=== PATIENT | female | born 1960 | race Caucasian/White ===

== ENCOUNTER → 2017-08-14 13:08 | Outpatient (REF) | payer MEDICARE, MEDICAID, SELFPAY ==
[2017-08-14 18:02] LABS: Amphetamine/Metha Screen,Urine Negative ng/mL (<1000); Barbiturates Screen,Urine Negative ng/mL (<200); Benzodiazepines Screen,Urine Negative ng/mL (200); Cannabinoid Screen,Urine Negative ng/mL (<50); Cocaine Screen,Urine Negative ng/g (<300); Methadone Screen,Urine Negative ng/mL (<300); Opiate Screen,Urine Positive ng/mL (<300); Phencyclidine Screen,Urine Negative ng/mL (<25)
== END ==
LOC: LAB 13:08
PROVIDERS: Visit Provider Emergency Medicine
DX: Z79.899 Other long term (current) drug therapy (principal)
CPT/HCPCS: 80305

== ENCOUNTER → 2017-09-14 10:09 | Outpatient (REF) | payer MEDICARE, MEDICAID, SELFPAY ==
[2017-09-14 14:01] LABS: Amphetamine/Metha Screen,Urine Negative ng/mL (<1000); Barbiturates Screen,Urine Negative ng/mL (<200); Benzodiazepines Screen,Urine Negative ng/mL (200); Cannabinoid Screen,Urine Negative ng/mL (<50); Cocaine Screen,Urine Negative ng/g (<300); Methadone Screen,Urine Negative ng/mL (<300); Opiate Screen,Urine Positive ng/mL (<300); Phencyclidine Screen,Urine Negative ng/mL (<25)
== END ==
LOC: LAB 10:09
PROVIDERS: Visit Provider Emergency Medicine
DX: Z79.899 Other long term (current) drug therapy (principal)
CPT/HCPCS: 80305

== ENCOUNTER → 2017-10-12 11:35 | Outpatient (REF) | payer MEDICARE, MEDICAID, SELFPAY ==
[2017-10-12 14:11] LABS: Amphetamine/Metha Screen,Urine Negative ng/mL (<1000); Barbiturates Screen,Urine Negative ng/mL (<200); Benzodiazepines Screen,Urine Negative ng/mL (200); Cannabinoid Screen,Urine Negative ng/mL (<50); Cocaine Screen,Urine Negative ng/g (<300); Methadone Screen,Urine Negative ng/mL (<300); Opiate Screen,Urine Positive ng/mL (<300); Phencyclidine Screen,Urine Negative ng/mL (<25)
== END ==
LOC: LAB 11:35
PROVIDERS: Visit Provider Emergency Medicine
DX: Z79.899 Other long term (current) drug therapy (principal)
CPT/HCPCS: 80305

== ENCOUNTER → 2017-11-10 10:48 | Outpatient (REF) | payer MEDICARE, MEDICAID, SELFPAY ==
[2017-11-10 13:55] LABS: Amphetamine/Metha Screen,Urine Negative ng/mL (<1000); Barbiturates Screen,Urine Negative ng/mL (<200); Benzodiazepines Screen,Urine Negative ng/mL (200); Cannabinoid Screen,Urine Negative ng/mL (<50); Cocaine Screen,Urine Negative ng/g (<300); Methadone Screen,Urine Negative ng/mL (<300); Opiate Screen,Urine Positive ng/mL (<300); Phencyclidine Screen,Urine Negative ng/mL (<25)
== END ==
LOC: LAB 10:48
PROVIDERS: Visit Provider Emergency Medicine
DX: Z79.899 Other long term (current) drug therapy (principal)
CPT/HCPCS: 80305

== ENCOUNTER → 2017-12-09 10:55 | Outpatient (REF) | payer MEDICARE, MEDICAID, SELFPAY ==
[2017-12-09 14:04] LABS: Amphetamine/Metha Screen,Urine Negative ng/mL (<1000); Barbiturates Screen,Urine Negative ng/mL (<200); Benzodiazepines Screen,Urine Negative ng/mL (200); Cannabinoid Screen,Urine Negative ng/mL (<50); Cocaine Screen,Urine Negative ng/g (<300); Methadone Screen,Urine Negative ng/mL (<300); Opiate Screen,Urine Positive ng/mL (<300); Phencyclidine Screen,Urine Negative ng/mL (<25)
== END ==
LOC: LAB 10:55
PROVIDERS: Visit Provider Emergency Medicine
DX: Z79.899 Other long term (current) drug therapy (principal)
CPT/HCPCS: 80305

== ENCOUNTER → 2018-01-06 13:20 | Outpatient (REF) | payer MEDICARE, MEDICAID, SELFPAY ==
[2018-01-06 19:31] LABS: Amphetamine/Metha Screen,Urine Negative ng/mL (<1000); Barbiturates Screen,Urine Negative ng/mL (<200); Benzodiazepines Screen,Urine Negative ng/mL (200); Cannabinoid Screen,Urine Negative ng/mL (<50); Cocaine Screen,Urine Negative ng/g (<300); Methadone Screen,Urine Negative ng/mL (<300); Opiate Screen,Urine Positive ng/mL (<300); Phencyclidine Screen,Urine Negative ng/mL (<25)
== END ==
LOC: LAB 13:20
PROVIDERS: Visit Provider Emergency Medicine
DX: M54.5 Low back pain (principal); Z79.899 Other long term (current) drug therapy
CPT/HCPCS: 80305

== ENCOUNTER → 2018-02-08 11:07 | Outpatient (REF) | payer MEDICARE, MEDICAID, SELFPAY ==
[2018-02-08 14:01] LABS: Amphetamine/Metha Screen,Urine Negative ng/mL (<1000); Barbiturates Screen,Urine Negative ng/mL (<200); Benzodiazepines Screen,Urine Negative ng/mL (<200); Cannabinoid Screen,Urine Negative ng/mL (<50); Cocaine Screen,Urine Negative ng/mL (<300); Methadone Screen,Urine Negative ng/mL (<300); Opiate Screen,Urine Positive ng/mL (<300); Phencyclidine Screen,Urine Negative ng/mL (<25)
== END ==
LOC: LAB 11:07
PROVIDERS: Visit Provider Emergency Medicine
DX: M54.5 Low back pain (principal); N39.0 Urinary tract infection, site not specified
CPT/HCPCS: 80305; 87086; 87088; 87186

== ENCOUNTER → 2018-03-10 09:37 | Outpatient (REF) | payer MEDICARE, SELFPAY ==
[2018-03-10 14:09] LABS: Amphetamine/Metha Screen,Urine Negative ng/mL (<1000); Barbiturates Screen,Urine Negative ng/mL (<200); Benzodiazepines Screen,Urine Negative ng/mL (<200); Cannabinoid Screen,Urine Negative ng/mL (<50); Cocaine Screen,Urine Negative ng/mL (<300); Methadone Screen,Urine Negative ng/mL (<300); Opiate Screen,Urine Positive ng/mL (<300); Phencyclidine Screen,Urine Negative ng/mL (<25)
== END ==
LOC: LAB 09:37
PROVIDERS: Visit Provider Emergency Medicine
DX: T50.901A Poisoning by unspecified drugs, medicaments and biological substances, accidental (unintentional), initial encounter (principal)
CPT/HCPCS: 80305

== ENCOUNTER → 2018-05-10 16:00 | Outpatient (REF) | payer MEDICARE, SELFPAY ==
[2018-05-11 12:50] LABS: Amphetamine/Metha Screen,Urine Negative ng/mL (<1000); Barbiturates Screen,Urine Negative ng/mL (<200); Benzodiazepines Screen,Urine Negative ng/mL (<200); Cannabinoid Screen,Urine Negative ng/mL (<50); Cocaine Screen,Urine Negative ng/mL (<300); Methadone Screen,Urine Negative ng/mL (<300); Opiate Screen,Urine Positive ng/mL (<300); Phencyclidine Screen,Urine Negative ng/mL (<25)
== END ==
LOC: LAB 16:00
PROVIDERS: PCP Emergency Medicine; Visit Provider Emergency Medicine
DX: Z79.899 Other long term (current) drug therapy (principal)
CPT/HCPCS: 80305

== ENCOUNTER → 2018-06-10 13:25 | Outpatient (CLI) | payer MEDICARE, SELFPAY ==
[2018-06-10 17:07] LABS: Amphetamine/Metha Screen,Urine Negative ng/mL (<1000); Barbiturates Screen,Urine Negative ng/mL (<200); Benzodiazepines Screen,Urine Negative ng/mL (<200); Cannabinoid Screen,Urine Negative ng/mL (<50); Cocaine Screen,Urine Negative ng/mL (<300); Methadone Screen,Urine Negative ng/mL (<300); Opiate Screen,Urine Positive ng/mL (<300); Phencyclidine Screen,Urine Negative ng/mL (<25)
== END ==
PROVIDERS: PCP Emergency Medicine; Visit Provider Emergency Medicine
DX: Z79.899 Other long term (current) drug therapy (principal)
CPT/HCPCS: 80305

== ENCOUNTER → 2018-07-07 15:30 | Outpatient (CLI) | payer MEDICARE, SELFPAY ==
[2018-07-08 14:56] LABS: Amphetamine/Metha Screen,Urine Negative ng/mL (<1000); Barbiturates Screen,Urine Negative ng/mL (<200); Benzodiazepines Screen,Urine Negative ng/mL (<200); Cannabinoid Screen,Urine Negative ng/mL (<50); Cocaine Screen,Urine Negative ng/mL (<300); Methadone Screen,Urine Negative ng/mL (<300); Opiate Screen,Urine Positive ng/mL (<300); Phencyclidine Screen,Urine Negative ng/mL (<25)
== END ==
PROVIDERS: Visit Provider Emergency Medicine
DX: M54.5 Low back pain (principal); Z79.891 Long term (current) use of opiate analgesic
CPT/HCPCS: 80305

== ENCOUNTER → 2018-10-04 17:20 | Outpatient (CLI) | payer MEDICARE, SELFPAY ==
[2018-10-04 19:02] LABS: Amphetamine/Metha Screen,Urine Negative ng/mL (<1000); Barbiturates Screen,Urine Negative ng/mL (<200); Benzodiazepines Screen,Urine Negative ng/mL (<200); Cannabinoid Screen,Urine Negative ng/mL (<50); Cocaine Screen,Urine Negative ng/mL (<300); Methadone Screen,Urine Negative ng/mL (<300); Opiate Screen,Urine Positive ng/mL (<300); Phencyclidine Screen,Urine Negative ng/mL (<25)
[2018-10-11 17:11] LABS: Alprazolam Negative (Cutoff=100); Benzodiazepines Positive ng/mL (Cutoff=100); Clonazepam Positive (.); Codeine Negative (Cutoff=100); Flurazepam Negative (Cutoff=100); Hydrocodone Positive (.); Hydromorphone Positive (.); Lorazepam Negative (Cutoff=100); Midazolam Negative (Cutoff=100); Morphine Positive (.); Temazepam Negative (Cutoff=100); Triazolam Negative (Cutoff=100)
[2018-10-12 03:10] LABS: Clonazepam Confirm 356 ng/mL (Cutoff=100); Hydrocodone Confirm 1485 ng/mL (Cutoff=100); Hydromorphone Confirm 361 ng/mL (Cutoff=100); Morphine Confirm >3000 ng/mL (Cutoff=100); Opiates Positive (.)
== END ==
PROVIDERS: Visit Provider Emergency Medicine
DX: F41.9 Anxiety disorder, unspecified (principal); T50.901A Poisoning by unspecified drugs, medicaments and biological substances, accidental (unintentional), initial encounter; Z79.899 Other long term (current) drug therapy
CPT/HCPCS: 80305; 80346; 80361; G0480

== ENCOUNTER → 2018-10-06 18:56 | Outpatient (CLI) | payer MEDICARE, SELFPAY ==
[2018-10-06 20:33] LABS: Amphetamine/Metha Screen,Urine Negative ng/mL (<1000); Barbiturates Screen,Urine Negative ng/mL (<200); Benzodiazepines Screen,Urine Negative ng/mL (<200); Cannabinoid Screen,Urine Negative ng/mL (<50); Cocaine Screen,Urine Negative ng/mL (<300); Methadone Screen,Urine Negative ng/mL (<300); Opiate Screen,Urine Positive ng/mL (<300); Phencyclidine Screen,Urine Negative ng/mL (<25)
== END ==
PROVIDERS: Visit Provider Emergency Medicine
DX: Z79.899 Other long term (current) drug therapy (principal)
CPT/HCPCS: 80305

== ENCOUNTER → 2018-10-11 13:30 | Outpatient (CLI) | payer MEDICARE, MEDICAID, SELFPAY ==
--- NOTE | 2018-10-11 13:49 | CT_ITS ---
CT chest wo con HISTORY: Hemoptysis, smoker ITS.REASON: hemoptisis/tobacco ORDERING PHYSICIAN: Garrison Morales MD PATIENT AGE: 58 years COMPARISON: 06/14/2018 Technique: Axial images obtained following the administration of 75 mL of Optiray 350 . Sagittal, and coronal reformatted images are also generated and reviewed. All CT scans at the facility use one or more dose reduction, viz: automated exposure control, ma/kV adjustment per patient size (including targeted exams where dose is matched to indication, i.e. head), or iterative reconstruction technique. FINDINGS: There has been prior CABG. There is normal heart size without obvious pericardial effusion. There is a 1.8 x 1.4 cm precarinal lymph node which is more prominent than when compared to the previous exam. There is masslike consolidation involving the posterior segment of the right upper lobe measuring 5.3 x 3.6 cm. There are peripheral air bronchograms. This has developed since the previous exam. There is a focal subjacent nodular density within the superior segment of the right lower lobe adjacent to this area of consolidation measuring approximately 9 mm. There is mild associated right hilar adenopathy. IV contrast was not utilized therefore, it is difficult to separate this area of masslike consolidation from the right hilum and adjacent adenopathy. There are fibrotic changes in the right lung base. Stable 5 mm nodule present in the right lower lobe laterally and there is a stable 8 mm nodule in the right lower lobe medially. There are atelectatic or fibrotic changes in the left lower lobe secondary to elevated left hemidiaphragm similar to the previous exam. No effusions are evident. Upper abdominal images are unremarkable. No acute bony findings IMPRESSION: There has been interval development of masslike consolidation involving the posterior aspect of the right upper lobe which extends from the hilum to the lateral chest wall with some peripheral air bronchograms. This may be related to dense consolidated pneumonia. Cannot exclude the possibility of rapidly enlarging neoplasm. IV contrast is not utilized which somewhat decreases the specificity. There is mild adenopathy in the precarinal region and right hilum. Suggest treating the patient for pneumonia and performing a follow-up chest CT without and with contrast in 3-4 weeks. If this does not resolve then bronchoscopy will be needed. Pulmonology consult may be of further value.
--- NOTE | 2018-10-11 13:51 | XR_ITS ---
XR chest 2V HISTORY: ITS.REASON: hemotysis, smoker ORDERING PHYSICIAN: Garrison Morales MD PATIENT AGE: 58 years COMPARISON: 06/14/2018 FINDINGS: There has been a prior CABG. Left hemidiaphragm is elevated as before. There is masslike consolidation now present within the right upper lobe in the perihilar region . There are atelectatic changes in the lung bases. No effusion evident. No acute bony findings. IMPRESSION: Masslike consolidation in the right upper lobe. This may represent very dense pneumonia. Neoplasm is an additional consideration and follow-up is recommended.
== END ==
PROVIDERS: PCP Emergency Medicine; Visit Provider Emergency Medicine
DX: R04.2 Hemoptysis (principal); Z72.0 Tobacco use
CPT/HCPCS: 71046; 71250

== ENCOUNTER → 2018-12-22 13:27 | Outpatient (CLI) | payer MEDICARE, MEDICAID, SELFPAY ==
[2018-12-22 16:53] LABS: Amphetamine/Metha Screen,Urine Negative ng/mL (<1000); Barbiturates Screen,Urine Negative ng/mL (<200); Benzodiazepines Screen,Urine Negative ng/mL (<200); Cannabinoid Screen,Urine Negative ng/mL (<50); Cocaine Screen,Urine Negative ng/mL (<300); Methadone Screen,Urine Negative ng/mL (<300); Opiate Screen,Urine Negative ng/mL (<300); Phencyclidine Screen,Urine Negative ng/mL (<25)
== END ==
PROVIDERS: Visit Provider Emergency Medicine
DX: T50.901A Poisoning by unspecified drugs, medicaments and biological substances, accidental (unintentional), initial encounter (principal)
CPT/HCPCS: 80305

== ENCOUNTER 2019-02-03 12:32 | Inpatient (IN) ==
--- NOTE | 2019-02-03 12:40 | Emergency Department Note ---
ED Disposition Clinical Impression: Acute respiratory failure with hypoxia and hypercapnia Community acquired pneumonia Qualifiers: Laterality: unspecified laterality Qualified Code(s): J18.9 - Pneumonia, unspecified organism COPD (chronic obstructive pulmonary disease) Qualifiers: COPD type: unspecified COPD Qualified Code(s): J44.9 - Chronic obstructive pulmonary disease, unspecified Disposition: Admitted As Inpatient Condition on Discharge: Fair Referrals: Garrison Morales MD [Primary Care Provider] - - Critical Care Critical Care Time: Yes Attestation: On , the high probability of a clinically significant, sudden or life threatening deterioration of the following system(s) required my full and direct attention, intervention and personal management. The time I documented below is in addition to time spent performing reported procedures but includes the following listed in this critical care notation. Total Critical Care Time: 30 Vital system(s) involved:: Respiratory Failure My critical care processes included: Assessment & monitoring of V/S, Initial and Re-exams, Data Review/Interpretation, Coordinating Care, Medication Orders and management, Documentation Medical Decision Making - [place] Inquiry Pt receiving controlled substance: No Vital Signs: 02/03/19 12:41 02/03/19 13:04 02/03/19 14:00 Temperature 98.6 F 98.9 F Temperature Source Oral Oral Pulse Rate [Right Radial] 110 H 110 H 103 H Respiratory Rate 16 20 Blood Pressure [Right Arm] 121/64 109/63 L 112/68 Blood Pressure Mean [Right Arm] 83 78 82 Blood Pressure Source [Right Arm] Automatic Cuff Automatic Cuff Automatic Cuff Blood Pressure Position [Right Arm] Sitting Sitting 02 Sat by Pulse Oximetry 82 L 91 L Oxygen Delivery Method Room Air Nasal Cannula Oxygen Flow Rate (LPM) 2 02/03/19 14:53 Temperature Temperature Source Pulse Rate [Right Radial] 101 H Respiratory Rate 20 Blood Pressure [Right Arm] 117/63 Blood Pressure Mean [Right Arm] 81 Blood Pressure Source [Right Arm] Automatic Cuff Blood Pressure Position [Right Arm] Sitting 02 Sat by Pulse Oximetry 95 Oxygen Delivery Method Nasal Cannula Oxygen Flow Rate (LPM) - Lab Data Lab Results 02/03/19 12:55: WBC 13.1 H, RBC 4.19 L, Hgb 11.3 L, Hct 35.9 L, MCV 85.6, MCH 27.1, MCHC 31.6 L, RDW 16.7, Plt Count 227, MPV 8.6, Neut % (Auto) 82.3 H, Lymph % (Auto) 12.2, [place] % (Auto) 4.1, Eos % (Auto) 1.2, Baso % (Auto) 0.2, Neut # (Auto) 10.8 H, Lymph # (Auto) 1.6, [place] # (Auto) 0.5, Eos # (Auto) 0.2, Baso # (Auto) 0.0 02/03/19 12:55: Sodium 134 L, Potassium 4.0, Chloride 102, Carbon Dioxide 26, Anion Gap 10.0, BUN 19 H, Creatinine 0.90, Estimated Creat Clear 54, Estimated GFR 65, Est GFR ( Amer) 78, Glucose 123 H, Calcium 7.9 L, Total Bilirubin 0.6, AST 17, ALT 16, Alkaline Phosphatase 116, Total Protein 6.7, Albumin 2.5 L, Globulin 4.2 H, Albumin/Globulin Ratio 0.6 L 02/03/19 12:55: Lactate 1.0 02/03/19 14:00: Urine Color Yellow, Urine Appearance Cloudy, Urine pH 6.0, Ur Specific [place] 1.020, Urine Protein Trace, Urine Glucose (UA) Negative, Urine Ketones Negative, Urine Blood Negative, Urine Nitrate Positive, Urine Bilirubin Negative, Urine Urobilinogen 2.0, Ur Leukocyte Esterase Trace, Urine RBC None, Urine WBC Occasional, Ur Squamous Epith Cells Occasional, Urine Bacteria 2+ 02/03/19 14:00: Urine Opiates Screen Negative, Urine Methadone Screen Negative, Ur Barbituates Screen Negative, Ur Phencyclidine Scrn Negative, Ur Amphetamines Screen Negative, U Benzodiazepines Scrn Negative, Urine Cocaine Screen Negative, U Marijuana (THC) Screen Negative 02/03/19 14:24: Specimen Source Right brachial, O2 % 2l, ABG pH 7.33 L, ABG pCO2 50.6 H, ABG pO2 67.2 L, ABG HCO3 26.0, ABG Total CO2 27.6 H, ABG O2 Saturation 92, ABG Base Excess 0.1, Abdulkadir Test Acceptable Result diagrams: 02/03/19 12:55 02/03/19 12:55 Orders (Tests/Meds): ED MEDICATIONS Generic Name Dose Route Start Last Admin Trade Name Freq PRN Reason Stop Dose Admin Ceftriaxone Sodium 1 gm/ 50 mls @ 100 mls/hr 02/03/19 15:15 02/03/19 15:18 Sodium Chloride IV 02/17/19 15:14 100 mls/hr Q24H LUCY Administration Protocol Azithromycin 500 mg/ Sodium 250 mls @ 250 mls/hr 02/03/19 15:15 Chloride IV 02/17/19 15:14 Q24H LUCY Protocol Discontinued Medications Generic Name Dose Route Start Last Admin Trade Name Micah PRN Reason Stop Dose Admin Albuterol/Ipratropium 3 ml 02/03/19 15:02 Duoneb 3ml Neb IH 02/03/19 15:03 ONCE ONE Methylprednisolone Sodium Succinate 125 mg 02/03/19 15:02 02/03/19 15:18 Solu-Medrol 125mg/2ml Vial IV 02/03/19 15:03 125 mg ONCE ONE Administration ORDERS Category Date Time Status UA [Urinalysis and Microscopic] Stat Lab 02/03/19 14:30 Ordered Blood Culture Stat Micro 02/03/19 12:51 Received Urine Culture Stat Micro 02/03/19 14:00 Received - Radiology Data #1 Image(s): Chest Image Reviewed: Yes I reviewed the patient's radiology results IMPRESSION: Right upper and right lower lobe pneumonia. Elevated left hemidiaphragm with left basilar atelectasis or infiltrate - CT Data CT Scan: Head Time Received: 14:[address] Reviewed: Yes: I have viewed the radiologist's interpretation Findings Narrative: IMPRESSION: 1. No acute intracranial findings. 2. Sphenoid sinus disease Dictated By: Abdulkadir Lofton MD 02/03/19 1330 - ECG Data Tracing #1 EKG interpreted by Chris Huffman MD: Rhythm: sinus tachycardia Rate: 112 [place]: normal Ectopy: none Conduction: normal ST Segment Changes: none T Wave Changes: none Q Waves: none No evidence of acute ischemia or injury Baseline artifact and wander present, but I consider the EKG adequate for accurate interpretation. - Physician Consults Physician Consulted: Andrew Time: 15:16 Reason -: Admission Comment/Response: Agrees to admit the patient to the hospital. We discussed the patient's clinical information, including history, exam, laboratory and radiology results and ED course. Per hospital procedure, I will write temporary bridge inpatient orders on the patient. Specific orders requested by the admitting physician: Continue antibiotics, steroids, nebulizer treatments, oxygen - Reevaluation(s) Time: 15:15 Reevaluation #1: Patient is sitting upright on the side of the bed, has her oxygen off. Says that it was irritating her. Pulse ox applied, 87% on room air. Oxygen reapplied. Discussed disposition. She is resistant to admission, but eventually agrees. Discussed findings. General Adult HPI - General Stated complaint: slurring words loss of balance, dropping things Time Seen by Provider: 02/03/19 13:20 - History of Present Illness HPI narrative: Complains of nodding off, feeling wobbly for 3 to 4 weeks. Has had a cough, small amounts of sputum production. Has chronic chest pain and shortness of breath. Denies fever. Denies vomiting and diarrhea. Patient is known to be on Suboxone. Denies alcohol or drug use. She is a smoker. She has COPD. - Related Data Home Medications Medication Instructions Recorded Confirmed aspirin 81 mg tablet,delayed 81 mg PO QDAY 08/13/17 02/03/19 release Isosorbide Mononitrate [Imdur 60mg 60 mg PO DAILY 10/15/18 02/03/19 ER tablet] Lisinopril [Lisinopril 2.5mg Tab] 2.5 mg PO DAILY 10/15/18 02/03/19 Budesonide/Formoterol Fumarate 2 puff INHALATION BID 02/03/19 02/03/19 [Symbicort] Clopidogrel Bisulfate [Plavix 75mg 75 mg PO DAILY 02/03/19 02/03/19 Tab] Omeprazole [Omeprazole 20mg 20 mg PO DAILY 02/03/19 02/03/19 Capsule] Previous Rx's Medication Instructions Recorded nitroglycerin 0.4 mg sublingual 0.4 mg SUBLINGUAL Q5-15M PRN #20 10/06/18 tablet tab citalopram 40 mg tablet 40 mg PO DAILY #90 tab 11/19/18 clonazepam 0.5 mg tablet 0.5 mg PO DAILY #30 tab 12/29/18 pregabalin 300 mg capsule 300 mg PO BID #60 cap 12/29/18 amitriptyline 25 mg tablet 25 mg PO QHS #90 tab 12/31/18 atorvastatin 80 mg tablet 80 mg PO DAILY #90 tab 01/14/19 tizanidine 4 mg capsule 4 mg PO BID PRN #180 cap 01/18/19 Allergies Allergy/AdvReac Type Severity Reaction Status Date / Time bupropion [From Wellbutrin] Allergy Intermediate Rash Verified 12/22/18 11:15 levofloxacin Allergy Unknown Verified 12/22/18 11:15 venlafaxine Allergy Unknown Verified 12/22/18 11:15 [facility] History - Hepatitis A Screen Attestation statement:: This patient has been screened for Hepatitis A risk factors. I have reviewed the patient's past medical history: Yes Medical History: Reports:: Congestive Heart Failure, Chronic Obstructive Pulmonary Disease (COPD), Coronary Artery Disease, Gastroesophageal Reflux Disease(GERD), Hyperlipidemia, Hypertension, Myocardial Infarction Denies:: Cancer, Diabetes Mellitus Type 1, Diabetes Mellitus Type 2, Internal Pacemaker, MRSA, Seizures Other Medical History: Reports: Other Comment: DDD,neuropathy Other Surgeries: Yes: Angioplasty, Bariatric Surgery, Cardiac Catheterization, Cardiac Surgery, Colon Resection, Coronary Stent, , Hysterectomy-Total, Other. No: Pacemaker Amputation: No Fractures: No - Social History Smoking Status: Current every day smoker Tobacco Type: cigarettes # Packs/Day (cigarettes): 0 Alcohol Intake: never Substance Use Type: sedatives, opiates, denies use Occupational Status: unemployed Housing: house Household Members: family Family Hx:: Diabetes, Heart Attack, Coronary Artery Disease, Hypertension ROS Obtained: Yes All systems reviewed & no additional complaints - Constitutional Constitutional: Reports fatigue, Denies fever(s), Reports malaise, Reports weakness - Cardiovascular Cardiovascular: Reports chest pain - Respiratory Respiratory: Yes cough, Yes dyspnea - Gastrointestinal Gastrointestingal: Denies: abdominal pain, diarrhea, vomiting Physical Exam - General General appearance: alert, in no apparent distress - Head Head exam: atraumatic, normocephalic - Eye Eye exam: Present: normal appearance, PERRL, EOMI - ENT ENT exam: Present: mucous membranes moist - Neck Neck exam: Present: normal inspection, full ROM, trachea midline - Chest Chest inspection: Present: normal inspection, symmetric chest wall rise - Respiratory Respiratory exam: Present: wheezes - Cardiovascular Cardiovascular exam: Present: regular rate, normal rhythm, normal heart sounds - Abdominal Exam Abdominal exam: Present: soft, normal bowel sounds. Absent: distention, tenderness - Extremities Exam Extremities exam: Present: normal inspection, normal capillary refill. Absent: pedal edema, calf tenderness - Neurological Exam Neurological exam: Present: alert, oriented X3, CN II-XII intact, motor sensory deficit - Psychiatric Psychiatric exam: Present: normal affect, normal mood - Skin Skin exam: Present: warm, dry
[2019-02-03 13:36] LABS: Albumin Level 2.5 gm/dL (3.4-5.0); Albumin/Globulin Ratio 0.6 (1.1-1.8); Bilirubin,Total 0.6 mg/dL (0.2-1.0); Calcium 7.9 mg/dL (8.5-10.1); Globulin 4.2 gm/dl (1.3-3.2); Total Protein,Serum 6.7 gm/dL (6.4-8.2)
[2019-02-03 14:02] LABS: Basophils % 0.2 % (0.1-2.0); Eosinophils # 0.2 K/mm3 (0.0-0.4); Eosinophils % 1.2 % (0.1-12.0); Hematocrit 35.9 % (37.0-47.0); Hemoglobin 11.3 g/dL (12.2-16.2); Lymphocytes # 1.6 K/mm3 (0.7-4.5); Lymphocytes % 12.2 % (10-50); Mean Corpuscular HGB Conc 31.6 g/dL (31.8-35.4); Mean Corpuscular Volume 85.6 fl (81-99); Mean Platelet Volume 8.6 fl (7.4-10.4); Monocytes # 0.5 K/mm3 (0.1-1.0); Monocytes % 4.1 % (1.7-9.3); Neutrophils # 10.8 K/mm3 (1.8-7.8); Neutrophils % 82.3 % (37.0-80.0); Platelet Count 227 K/mm3 (142-424); Red Blood Count 4.19 M/mm3 (4.20-5.40); Red Cell Distribution Width 16.7 % (11.5-17.5); White Blood Count 13.1 K/mm3 (4.8-10.8)
[2019-02-03 14:13] LABS: Microscopic, Urine URINE MICROSCOPIC (MICROSCOPIC)
[2019-02-03 14:14] LABS: Appearance,Urine CLOUDY (Clear); Bilirubin,Urine Negative (Negative); Blood, Urine Negative (Negative); Color,Urine YELLOW (Yellow); Glucose,Urine (UA) Negative (Negative); Ketones,Urine Negative (Negative); Leukocyte Esterase,Urine TRACE (Negative); Protein,Urine TRACE (Negative)
[2019-02-03 14:25] LABS: Bacteria,Urine 2+ /lpf; Squamous Epithelial Cell,Urine Occasional #/hpf (0-5); WBC,Urine Occasional #/hpf (0-3)
[2019-02-03 14:30] LABS: Amphetamine/Metha Screen,Urine Negative ng/mL (<1000); Barbiturates Screen,Urine Negative ng/mL (<200); Benzodiazepines Screen,Urine Negative ng/mL (<200); Cannabinoid Screen,Urine Negative ng/mL (<50); Cocaine Screen,Urine Negative ng/mL (<300); Methadone Screen,Urine Negative ng/mL (<300); Opiate Screen,Urine Negative ng/mL (<300); Phencyclidine Screen,Urine Negative ng/mL (<25)
[2019-02-03 14:46] LABS: ABG Base Excess 0.1 mmol/L (-2.4-2.3); ABG Oxygen Saturation 92 % (90-100); ABG PH 7.33 mmol/L (7.35-7.45); ABG PO2 67.2 mmhg (80-100); ABG TCO2 27.6 mmhg (23-27)
[2019-02-03 14:47] LABS: Allen's Test Acceptable; Oxygen 2L %
[2019-02-03 14:48] LABS: ABG PCO2 50.6 mmhg (35.0-45.0)
--- NOTE | 2019-02-03 22:57 | History & Physical Report ---
*Admission Date: 02/03/19 *Chief complaint: sob *History of present illness: this wf who over the last few days has not felt well-omplains of nodding off, feeling wobbly for 3 to 4 weeks. Has had a cough, small amounts of sputum production. Has chronic chest pain and shortness of breath. Denies fever. Den ies vomiting and diarrhea. Patient is known to be on Suboxone. Denies alcohol or drug use. She is a smoker. She has COPD. pt with abn cxr and abg and was admitted for fluids and iv abx [facility] History I have reviewed the patient's past medical history: Yes Medical History: Reports:: Congestive Heart Failure, Chronic Obstructive Pulm onary Disease (COPD), Coronary Artery Disease, Gastroesophageal Reflux Disease(GERD), Hyperlipidemia, Hypertension, Myocardial Infarction Denies:: Cancer, Diabetes Mellitus Type 1, Diabetes Mellitus Type 2, Internal Pacemaker, MRSA, Seizures *Have you ever received a pneumonia vaccine?: Yes *Have you received a flu vaccine this season?: No Other Medical History: Reports: Arthritis, Other Other Surgeries: Yes: Angioplasty, Bariatric Surgery, CABG, Cardiac Catheterization, Cardiac Surgery, Colon Resection, Coronary Stent, , Hysterectomy-Total, Other. No: Pacemaker Amputation: No Fractures: No - *Social History Educational Level: Completed High School Smoking Status: Current every day smoker Tobacco Type: cigarettes # Packs/Day (cigarettes): 1 Alcohol Intake: never Substance Use Type: sedatives, opiates, denies use *Occupational Status:: unemployed Housing: house Household Members: none *Travel in the last 8 weeks: None - Psychiatric History Expresses thoughts of harming self/others: None Suicide Plan Description: No Plan Family Hx:: No significant family history Review of Systems - Review of Systems Review of systems:: pertinent systems reviewed and negative unless documented below - Constitutional Reports malaise, Reports weakness - Eyes Denies change in vision - ENT Denies sore throat - *Cardiovascular Denies chest pain - *Respiratory Denies cough - *Gastrointestinal Reports nausea, Denies abdominal pain - *Genitourinary Denies painful urination - *Musculoskeletal Denies joint pain - Integumentary/Breasts Denies rash - *Neurologic Reports weakness, Denies seizure-like activity, Denies headache(s) - Psychiatric Reports anxiety Meds Home Medications Medication Instructions Recorded Confirmed Type aspirin 81 mg tablet,delayed 81 mg PO DAILY 08/13/17 02/04/19 History release Isosorbide Mononitrate [Imdur 60mg 60 mg PO DAILY 10/15/18 02/03/19 History ER tablet] Lisinopril [Lisinopril 2.5mg Tab] 2.5 mg PO DAILY 10/15/18 02/03/19 History citalopram 40 mg tablet 40 mg PO DAILY #90 tab 11/19/18 02/03/19 Rx clonazepam 0.5 mg tablet 0.5 mg PO DAILY #30 tab 12/29/18 02/03/19 Rx pregabalin 300 mg capsule 300 mg PO BID #60 cap 12/29/18 02/03/19 Rx amitriptyline 25 mg tablet 25 mg PO QHS #90 tab 12/31/18 02/03/19 Rx atorvastatin 80 mg tablet 80 mg PO DAILY #90 tab 01/14/19 02/03/19 Rx tizanidine 4 mg capsule 4 mg PO BID PRN #180 cap 01/18/19 02/03/19 Rx Budesonide/Formoterol Fumarate 2 puff INHALATION BID 02/03/19 02/03/19 History [Symbicort] Buprenorphine HCl/Naloxone HCl 2 each SL DAILY 02/03/19 02/03/19 History [Suboxone 8 mg-2 mg Sl Film] Clopidogrel Bisulfate [Plavix 75mg 75 mg PO DAILY 02/03/19 02/03/19 History Tab] Omeprazole [Omeprazole 20mg 20 mg PO DAILY 02/03/19 02/03/19 History Capsule] Nitroglycerin 0.4 mg SUBLINGUAL Q5MINP PRN 02/04/19 02/04/19 History Allergies Allergy/AdvReac Type Severity Reaction Status Date / Time bupropion [From Wellbutrin] Allergy Intermediate Rash Verified 12/22/18 11:15 levofloxacin Allergy Unknown Verified 12/22/18 11:15 venlafaxine Allergy Unknown Verified 12/22/18 11:15 Exam Vital signs and Labs for Last 24 Hours: Temp Pulse Resp BP Pulse Ox 98.0 F 79 16 100/59 L 92 L 02/03/19 19:36 02/03/19 19:36 02/03/19 19:36 02/03/19 19:36 02/03/19 19:53 Laboratory Results - last 24 hr 02/03/19 12:55: WBC 13.1 H, RBC 4.19 L, Hgb 11.3 L, Hct 35.9 L, MCV 85.6, MCH 27.1, MCHC 31.6 L, RDW 16.7, Plt Count 227, MPV 8.6, Neut % (Auto) 82.3 H, Lymph % (Auto) 12.2, [place] % (Auto) 4.1, Eos % (Auto) 1.2, Baso % (Auto) 0.2, Neut # (Auto) 10.8 H, Lymph # (Auto) 1.6, [place] # (Auto) 0.5, Eos # (Auto) 0.2, Baso # (Auto) 0.0 02/03/19 12:55: Sodium 134 L, Potassium 4.0, Chloride 102, Carbon Dioxide 26, Anion Gap 10.0, BUN 19 H, Creatinine 0.90, Estimated Creat Clear 54, Estimated GFR 65, Est GFR ( Amer) 78, Glucose 123 H, Calcium 7.9 L, Total Bilirubin 0.6, AST 17, ALT 16, Alkaline Phosphatase 116, Total Protein 6.7, Albumin 2.5 L, Globulin 4.2 H, Albumin/Globulin Ratio 0.6 L 02/03/19 12:55: Lactate 1.0 02/03/19 14:00: Urine Color Yellow, Urine Appearance Cloudy, Urine pH 6.0, Ur Specific [place] 1.020, Urine Protein Trace, Urine Glucose (UA) Negative, Urine Ketones Negative, Urine Blood Negative, Urine Nitrate Positive, Urine Bilirubin Negative, Urine Urobilinogen 2.0, Ur Leukocyte Esterase Trace, Urine RBC None, Urine WBC Occasional, Ur Squamous Epith Cells Occasional, Urine Bacteria 2+ 02/03/19 14:00: Urine Opiates Screen Negative, Urine Methadone Screen Negative, Ur Barbituates Screen Negative, Ur Phencyclidine Scrn Negative, Ur Amphetamines Screen Negative, U Benzodiazepines Scrn Negative, Urine Cocaine Screen Negative, U Marijuana (THC) Screen Negative 02/03/19 14:24: Specimen Source Right brachial, O2 % 2l, ABG pH 7.33 L, ABG pCO2 50.6 H, ABG pO2 67.2 L, ABG HCO3 26.0, ABG Total CO2 27.6 H, ABG O2 Saturation 92, ABG Base Excess 0.1, Abdulkadir Test Acceptable I & O for Last 24 hours: Intake & Output 02/01/19 02/02/19 02/03/19 02/04/19 11:59 11:59 11:59 11:59 Intake Total 240 / 240 Balance 240 / 240 Weight 147 lb 5 oz - Constitutional no acute distress - *Routine HEENT Exam Head: Present: normocephalic Eye: Present: EOMI, PERRL ENT: Present: mucous membranes dry - *Routine Neck Exam Present: supple - *Routine Respiratory Exam Present: decreased breath sounds, rhonchi. Absent: respiratory distress - *Routine Cardiovascular Exam Present: RRR, murmur - *Routine Abdominal Exam Present: soft - *Routine Extremities Exam Absent: calf tenderness - *Routine Skin Exam Present: intact - *Routine Neurological Exam Present: alert. Absent: oriented X3, CN II-XII intact - Routine Psychiatric Exam Present: unable to assess Assessment and Plan (1) Acute respiratory failure with hypoxia and hypercapnia Current visit: Yes Status: Acute Category: Medical Code(s): J96.01 - Acute respiratory failure with hypoxia; J96.02 - Acute respiratory failure with hypercapnia (2) Community acquired pneumonia Current visit: Yes Status: Acute Qualifiers: Laterality: unspecified laterality Qualified Code(s): J18.9 - Pneumonia, unspecified organism Category: Medical Code(s): J18.9 - Pneumonia, unspecified organism (3) Acute sphenoidal sinusitis Current visit: Yes Status: Acute Category: Medical Code(s): J01.30 - Acute sphenoidal sinusitis, unspecified
--- NOTE | 2019-02-04 07:25 | Pharmacy Consult Notes ---
[facility] VTE Monitoring - Patient Demographics Admission date: 02/03/19 Report Date: 02/04/19 Time: 07:24 Allergies/Adverse Reactions: Patient Allergies bupropion [From Wellbutrin] Allergy (Intermediate, Verified 12/22/18 11:15) Rash levofloxacin Allergy (Unknown, Verified 12/22/18 11:15) venlafaxine Allergy (Unknown, Verified 12/22/18 11:15) Height: 1.65 m Weight: 66.905 kg Patient Problems: Current Active Problems (Updated 02/03/19 @ 22:56 by Garrison Morales MD) Community acquired pneumonia (Acute) Acute respiratory failure with hypoxia and hypercapnia (Acute) COPD (chronic obstructive pulmonary disease) (Acute) - VTE Risk Labs: VTE Related Lab Results Hgb 11.3 g/dL (12.2-16.2) L 02/03/19 12:55 Hct 35.9 % (37.0-47.0) L 02/03/19 12:55 Plt Count 227 K/mm3 (142-424) 02/03/19 12:55 BUN 19 mg/dL (7-18) H 02/03/19 12:55 Creatinine 0.90 mg/dL (0.55-1.02) 02/03/19 12:55 Estimated Creat Clear 54 mL/min (50-200) 02/03/19 12:55 VTE Score: 6 VTE Risk Level: Moderate Risk - Prophylaxis VTE Prophylaxis Ordered?: Yes Types of VTE Prophylaxis: TEDS Knee High Location of Applied Device: Bilateral Lower Extremeties - VTE Diagnosis Confirmed Treatment or plan recommended: Continue Current Treatment
[2019-02-04 08:45] LABS: Basophils % 0.1 % (0.1-2.0); Eosinophils % 0.2 % (0.1-12.0); Hematocrit 37.9 % (37.0-47.0); Hemoglobin 11.8 g/dL (12.2-16.2); Lymphocytes # 0.5 K/mm3 (0.7-4.5); Lymphocytes % 11.1 % (10-50); Mean Corpuscular Volume 89.3 fl (81-99); Mean Platelet Volume 8.9 fl (7.4-10.4); Monocytes # 0.1 K/mm3 (0.1-1.0); Neutrophils % 86.7 % (37.0-80.0); Platelet Count 234 K/mm3 (142-424); Red Blood Count 4.24 M/mm3 (4.20-5.40); Red Cell Distribution Width 16.8 % (11.5-17.5); White Blood Count 4.6 K/mm3 (4.8-10.8)
[2019-02-04 08:55] LABS: Anion Gap 10.3 mEq/L (5-15); Calcium 8.2 mg/dL (8.5-10.1)
--- NOTE | 2019-02-04 09:04 | Progress Note ---
Internal Medicine - PN: Subj *Date: 02/04/19 *Time: 09:01 Interval history: Patient laying in bed with O2 in place states she is tired but feeling slight better. Exam Vital signs and Labs for Last 24 Hours: Temp Pulse Resp BP Pulse Ox 98.2 F 88 14 122/74 91 L 02/04/19 07:47 02/04/19 07:47 02/04/19 07:47 02/04/19 07:47 02/04/19 07:47 Laboratory Results - last 24 hr 02/03/19 12:55: WBC 13.1 H, RBC 4.19 L, Hgb 11.3 L, Hct 35.9 L, MCV 85.6, MCH 27.1, MCHC 31.6 L, RDW 16.7, Plt Count 227, MPV 8.6, Neut % (Auto) 82.3 H, Lymph % (Auto) 12.2, [place] % (Auto) 4.1, Eos % (Auto) 1.2, Baso % (Auto) 0.2, Neut # (Auto) 10.8 H, Lymph # (Auto) 1.6, [place] # (Auto) 0.5, Eos # (Auto) 0.2, Baso # (Auto) 0.0 02/03/19 12:55: Sodium 134 L, Potassium 4.0, Chloride 102, Carbon Dioxide 26, Anion Gap 10.0, BUN 19 H, Creatinine 0.90, Estimated Creat Clear 54, Estimated GFR 65, Est GFR ( Amer) 78, Glucose 123 H, Calcium 7.9 L, Total Bilirubin 0.6, AST 17, ALT 16, Alkaline Phosphatase 116, Total Protein 6.7, Albumin 2.5 L, Globulin 4.2 H, Albumin/Globulin Ratio 0.6 L 02/03/19 12:55: Lactate 1.0 02/03/19 14:00: Urine Color Yellow, Urine Appearance Cloudy, Urine pH 6.0, Ur Specific [place] 1.020, Urine Protein Trace, Urine Glucose (UA) Negative, Urine Ketones Negative, Urine Blood Negative, Urine Nitrate Positive, Urine Bilirubin Negative, Urine Urobilinogen 2.0, Ur Leukocyte Esterase Trace, Urine RBC None, Urine WBC Occasional, Ur Squamous Epith Cells Occasional, Urine Bacteria 2+ 02/03/19 14:00: Urine Opiates Screen Negative, Urine Methadone Screen Negative, Ur Barbituates Screen Negative, Ur Phencyclidine Scrn Negative, Ur Amphetamines Screen Negative, U Benzodiazepines Scrn Negative, Urine Cocaine Screen Negative, U Marijuana (THC) Screen Negative 02/03/19 14:24: Specimen Source Right brachial, O2 % 2l, ABG pH 7.33 L, ABG pCO2 50.6 H, ABG pO2 67.2 L, ABG HCO3 26.0, ABG Total CO2 27.6 H, ABG O2 Saturation 92, ABG Base Excess 0.1, Abdulkadir Test Acceptable 02/04/19 08:30: WBC 4.6 L D, RBC 4.24, Hgb 11.8 L, Hct 37.9, MCV 89.3, MCH 27.7, MCHC 31.0 L, RDW 16.8, Plt Count 234, MPV 8.9, Neut % (Auto) 86.7 H, Lymph % (Auto) 11.1, [place] % (Auto) 2.0, Eos % (Auto) 0.2, Baso % (Auto) 0.1, Neut # (Auto) 4.0, Lymph # (Auto) 0.5 L, [place] # (Auto) 0.1, Eos # (Auto) 0.0, Baso # (Auto) 0.0 02/04/19 08:30: Sodium 139, Potassium 4.3, Chloride 106, Carbon Dioxide 27, Anion Gap 10.3, BUN 16, Creatinine 0.69 D, Estimated Creat Clear 95, Estimated GFR 88, Est GFR ( Amer) 106 D, Glucose 154 H D, Calcium 8.2 L I & O for Last 24 hours: Intake & Output 02/01/19 02/02/19 02/03/19 02/04/19 11:59 11:59 11:59 11:59 Intake Total 1130 / 1130 Balance 1130 / 1130 Weight 147 lb 8 oz Microbiology Reports for the Last 24 Hours: Microbiology 02/03/19 14:00 Urine,Clean Catch Urine Culture - Preliminary Gram Negative Rods - Constitutional no acute distress - *Routine HEENT Exam Head: Present: normocephalic Eye: Present: PERRL ENT: Present: mucous membranes moist - *Routine Neck Exam Present: supple. Absent: lymphadenopathy - *Routine Respiratory Exam Present: rhonchi, wheezes, diminished air movement - *Routine Cardiovascular Exam Present: RRR - *Routine Abdominal Exam Present: soft, normoactive bowel sounds. Absent: tenderness - *Routine Extremities Exam Present: full ROM. Absent: cyanosis, clubbing, edema - *Routine Skin Exam Present: warm. Absent: rash - *Routine Neurological Exam Present: alert, oriented X3 - Routine Psychiatric Exam Present: normal affect Assessment and Plan (1) Acute respiratory failure with hypoxia and hypercapnia Current visit: Yes Status: Acute Category: Medical Code(s): J96.01 - Acute respiratory failure with hypoxia; J96.02 - Acute respiratory failure with hypercapnia (2) Community acquired pneumonia Current visit: Yes Status: Acute Qualifiers: Laterality: unspecified laterality Qualified Code(s): J18.9 - Pneumonia, unspecified organism Category: Medical Code(s): J18.9 - Pneumonia, unspecified organism (3) Acute sphenoidal sinusitis Current visit: Yes Status: Acute Category: Medical Code(s): J01.30 - Acute sphenoidal sinusitis, unspecified - Assessment and plan all Dx Assessment and Plan for all problems:: rounded with pierre all orders per pierre
[2019-02-04 09:37] LABS: Anisocytosis 1+; Lymphocytes % 11 % (10-50); Monocytes % 2 % (2-9); Neutrophils % 87 % (42-76); Total Cells Counted 100
[2019-02-05 07:03] LABS: Eosinophils % 0.2 % (0.1-12.0); Hemoglobin 11.4 g/dL (12.2-16.2); Lymphocytes # 0.8 K/mm3 (0.7-4.5); Mean Corpuscular HGB Conc 30.7 g/dL (31.8-35.4); Mean Corpuscular Volume 88.3 fl (81-99); Mean Platelet Volume 8.9 fl (7.4-10.4); Monocytes # 0.2 K/mm3 (0.1-1.0); Monocytes % 3.2 % (1.7-9.3); Neutrophils # 5.2 K/mm3 (1.8-7.8); Neutrophils % 83.5 % (37.0-80.0); Platelet Count 247 K/mm3 (142-424); Red Cell Distribution Width 16.6 % (11.5-17.5); White Blood Count 6.2 K/mm3 (4.8-10.8)
[2019-02-05 07:09] LABS: Anion Gap 8.5 mEq/L (5-15); Calcium 8.2 mg/dL (8.5-10.1)
--- NOTE | 2019-02-05 08:07 | Progress Note ---
Internal Medicine - PN: Subj *Date: 02/05/19 *Time: 08:04 Interval history: doing some better - and more alert - had dysphagia eval - labs ok - will be oob and repeat cxr and try off oxygen Exam Vital signs and Labs for Last 24 Hours: Temp Pulse Resp BP Pulse Ox 97.6 F 105 H 18 146/62 H 94 L 02/05/19 07:34 02/05/19 07:34 02/05/19 07:34 02/05/19 07:34 02/05/19 06:32 Laboratory Results - last 24 hr 02/04/19 08:30: WBC 4.6 L D, RBC 4.24, Hgb 11.8 L, Hct 37.9, MCV 89.3, MCH 27.7, MCHC 31.0 L, RDW 16.8, Plt Count 234, MPV 8.9, Neut % (Auto) 86.7 H, Lymph % (Auto) 11.1, [place] % (Auto) 2.0, Eos % (Auto) 0.2, Baso % (Auto) 0.1, Neut # (Auto) 4.0, Lymph # (Auto) 0.5 L, [place] # (Auto) 0.1, Eos # (Auto) 0.0, Baso # (Auto) 0.0, Total Counted 100, Neutrophils % (Manual) 87 H, Lymphocytes % (Manual) 11, Monocytes % (Manual) 2, Platelet Estimate Normal, Anisocytosis 1+, Microcytosis 1+ 02/04/19 08:30: Sodium 139, Potassium 4.3, Chloride 106, Carbon Dioxide 27, Anion Gap 10.3, BUN 16, Creatinine 0.69 D, Estimated Creat Clear 95, Estimated GFR 88, Est GFR ( Amer) 106 D, Glucose 154 H D, Calcium 8.2 L 02/05/19 06:03: WBC 6.2 D, RBC 4.20, Hgb 11.4 L, Hct 37.0, MCV 88.3, MCH 27.1, MCHC 30.7 L, RDW 16.6, Plt Count 247, MPV 8.9, Neut % (Auto) 83.5 H, Lymph % (Auto) 13.0, [place] % (Auto) 3.2, Eos % (Auto) 0.2, Baso % (Auto) 0.0 L, Neut # (Auto) 5.2, Lymph # (Auto) 0.8, [place] # (Auto) 0.2, Eos # (Auto) 0.0, Baso # (Auto) 0.0 02/05/19 06:03: Sodium 140, Potassium 4.5, Chloride 107, Carbon Dioxide 29, Anion Gap 8.5, BUN 18, Creatinine 0.62, Estimated Creat Clear 110, Estimated GFR 99, Est GFR ( Amer) 120, Glucose 121 H D, Calcium 8.2 L I & O for Last 24 hours: Intake & Output 02/02/19 02/03/19 02/04/19 02/05/19 11:59 11:59 11:59 11:59 Intake Total 1130 / 1130 2740 / 2740 Output Total 400 / 400 Balance 1130 / 1130 2340 / 2340 Weight 147 lb 8 oz 154 lb Microbiology Reports for the Last 24 Hours: Microbiology 02/03/19 14:00 Urine,Clean Catch Urine Culture - Final Escherichia coli - Constitutional no acute distress - *Routine HEENT Exam Head: Present: normocephalic Eye: Present: EOMI, PERRL ENT: Present: mucous membranes dry - *Routine Neck Exam Absent: JVD - *Routine Respiratory Exam Present: decreased breath sounds, rhonchi - *Routine Cardiovascular Exam Present: RRR, murmur - *Routine Abdominal Exam Present: soft - *Routine Extremities Exam Absent: calf tenderness - *Routine Skin Exam Present: intact - *Routine Neurological Exam Present: alert, oriented X3, CN II-XII intact. Absent: sensory deficit, motor deficit, nystagmus - Routine Psychiatric Exam Present: normal affect Assessment and Plan (1) Acute respiratory failure with hypoxia and hypercapnia Current visit: Yes Status: Acute Category: Medical Code(s): J96.01 - Acute respiratory failure with hypoxia; J96.02 - Acute respiratory failure with hypercapnia (2) Community acquired pneumonia Current visit: Yes Status: Acute Qualifiers: Laterality: unspecified laterality Qualified Code(s): J18.9 - Pneumonia, unspecified organism Category: Medical Code(s): J18.9 - Pneumonia, unspecified organism (3) Acute sphenoidal sinusitis Current visit: Yes Status: Acute Category: Medical Code(s): J01.30 - Acute sphenoidal sinusitis, unspecified (4) Dysphagia Current visit: Yes Status: Acute Qualifiers: Dysphagia type: unspecified Qualified Code(s): R13.10 - Dysphagia, unspecified Category: Medical Code(s): R13.10 - Dysphagia, unspecified (5) E. coli UTI (urinary tract infection) Current visit: Yes Status: Acute Category: Medical Code(s): N39.0 - Urinary tract infection, site not specified; B96.20 - Unspecified Escherichia coli [E. coli] as the cause of diseases classified elsewhere
[2019-02-06 06:57] LABS: Basophils % 0.1 % (0.1-2.0); Eosinophils % 0.2 % (0.1-12.0); Hematocrit 35.4 % (37.0-47.0); Hemoglobin 11.1 g/dL (12.2-16.2); Lymphocytes # 0.7 K/mm3 (0.7-4.5); Lymphocytes % 10.8 % (10-50); Mean Corpuscular HGB Conc 31.4 g/dL (31.8-35.4); Mean Corpuscular Volume 86.1 fl (81-99); Mean Platelet Volume 8.8 fl (7.4-10.4); Monocytes # 0.2 K/mm3 (0.1-1.0); Monocytes % 2.6 % (1.7-9.3); Neutrophils # 5.5 K/mm3 (1.8-7.8); Neutrophils % 86.3 % (37.0-80.0); Platelet Count 230 K/mm3 (142-424); Red Blood Count 4.11 M/mm3 (4.20-5.40); Red Cell Distribution Width 16.7 % (11.5-17.5); White Blood Count 6.4 K/mm3 (4.8-10.8)
[2019-02-06 07:01] LABS: Anion Gap 9.4 mEq/L (5-15); Calcium 8.1 mg/dL (8.5-10.1)
[2019-02-06 07:16] LABS: Lymphocytes % 11 % (10-50); Neutrophils % 83 % (42-76); Polychromasia 1+; Total Cells Counted 100
--- NOTE | 2019-02-06 09:27 | Discharge Summary ---
General - General Admission date:: 02/03/19 Discharge date: 02/06/19 HPI HPI: this wf who over the last few days has not felt well-omplains of nodding off, feeling wobbly for 3 to 4 weeks. Has had a cough, small amounts of sputum production. Has chronic chest pain and shortness of breath. Denies fever. Denies vomiting and diarrhea. Patient is known to be on Suboxone. Denies alcohol or drug use. She is a smoker. She has COPD. pt with abn cxr and abg and was admitted for fluids and iv abx Hospital Course Hospital Course: pt has did better with ivf and abx and resp treatment - pt with no chest pain and is ambulatory and off o2 - we discussed tob use - labs are stable and we will follow in office in 2 weeks Objective Vital signs: Temp Pulse Resp BP Pulse Ox 98.1 F 91 H 20 138/75 93 L 02/06/19 08:00 02/06/19 08:00 02/06/19 08:00 02/06/19 08:00 02/06/19 08:00 no acute distress - *Routine HEENT Exam Head: Present: normocephalic Eye: Present: EOMI, PERRL ENT: Present: mucous membranes dry - *Routine Neck Exam Present: supple. Absent: JVD - *Routine Respiratory Exam Present: decreased breath sounds Comments: more changes on lt - *Routine Cardiovascular Exam Present: RRR, murmur. Absent: rubs - *Routine Abdominal Exam Present: soft - *Routine Extremities Exam Absent: edema, calf tenderness - *Routine Skin Exam Present: intact - *Routine Neurological Exam Present: alert, oriented X3, CN II-XII intact - Routine Psychiatric Exam Present: normal affect Results Labs on day of discharge: Labs from last 24 hours 02/06/19 02/06/19 06:25 06:25 WBC 6.4 RBC 4.11 L Hgb 11.1 L Hct 35.4 L MCV 86.1 MCH 27.0 MCHC 31.4 L RDW 16.7 Plt Count 230 MPV 8.8 Neut % (Auto) 86.3 H Lymph % (Auto) 10.8 [place] % (Auto) 2.6 Eos % (Auto) 0.2 Baso % (Auto) 0.1 Neut # (Auto) 5.5 Lymph # (Auto) 0.7 [place] # (Auto) 0.2 Eos # (Auto) 0.0 Baso # (Auto) 0.0 Total Counted 100 Neutrophils % (Manual) 83 H Band Neutrophils % 6.0 Lymphocytes % (Manual) 11 Platelet Estimate Normal Polychromasia 1+ Sodium 139 Potassium 4.4 Chloride 106 Carbon Dioxide 28 Anion Gap 9.4 BUN 19 H Creatinine 0.64 Estimated Creat Clear 107 Estimated GFR 96 Est GFR ( Amer) 116 Glucose 115 H Calcium 8.1 L Preliminary micro results at discharge 02/03/19 12:55 Blood Culture - Preliminary Blood NO GROWTH AFTER 48 HOURS 02/03/19 12:55 Blood Culture - Preliminary Blood NO GROWTH AFTER 48 HOURS 02/03/19 12:51 Blood Culture - Preliminary Blood NO GROWTH AFTER 48 HOURS 02/03/19 12:51 Blood Culture - Preliminary Blood NO GROWTH AFTER 48 HOURS DS: Diagnosis - Discharge Diagnosis (1) Acute respiratory failure with hypoxia and hypercapnia Status: Acute (2) Community acquired pneumonia Status: Acute (3) Acute sphenoidal sinusitis Status: Acute (4) Dysphagia Status: Acute (5) E. coli UTI (urinary tract infection) Status: Acute Discharge Plan - Patient Discharge Instructions ACTIVITY: Continue current activity DIET: continue same diet Patient Instructions: DI for Chronic Obstructive Pulmonary Disease, DI for Pneumonia -- Adult, DI for Urinary Tract Infection (UTI) - Follow up Plan Disposition: Home, Self-Detention Medications: Home Medications Medication Instructions Recorded Confirmed Type aspirin 81 mg tablet,delayed 81 mg PO DAILY 08/13/17 02/04/19 History release Isosorbide Mononitrate [Imdur 60mg 60 mg PO DAILY 10/15/18 02/03/19 History ER tablet] Lisinopril [Lisinopril 2.5mg Tab] 2.5 mg PO DAILY 10/15/18 02/03/19 History citalopram 40 mg tablet 40 mg PO DAILY #90 tab 11/19/18 02/03/19 Rx clonazepam 0.5 mg tablet 0.5 mg PO DAILY #30 tab 12/29/18 02/03/19 Rx pregabalin 300 mg capsule 300 mg PO BID #60 cap 12/29/18 02/03/19 Rx amitriptyline 25 mg tablet 25 mg PO QHS #90 tab 12/31/18 02/03/19 Rx atorvastatin 80 mg tablet 80 mg PO DAILY #90 tab 01/14/19 02/03/19 Rx tizanidine 4 mg capsule 4 mg PO BID PRN #180 cap 01/18/19 02/03/19 Rx Budesonide/Formoterol Fumarate 2 puff INHALATION BID 02/03/19 02/03/19 History [Symbicort] Clopidogrel Bisulfate [Plavix 75mg 75 mg PO DAILY 02/03/19 02/03/19 History Tab] Omeprazole [Omeprazole 20mg 20 mg PO DAILY 02/03/19 02/03/19 History Capsule] Buprenorphine HCl/Naloxone HCl 2 each SL DAILY 02/04/19 02/04/19 History [Buprenorphin-Naloxon 8-2 mg Sl] Nitroglycerin 0.4 mg SUBLINGUAL Q5MINP PRN 02/04/19 02/04/19 History Azithromycin [Zithromax 250mg 250 mg PO DIRECTED #6 tab 02/06/19 Rx tab] cephALEXin [Keflex 500mg Cap] 500 mg PO TID #30 cap 02/06/19 Rx predniSONE [Prednisone 20mg 20 mg PO BID #10 tab 02/06/19 Rx Tab] Prescriptions/Medication Reconciliation: New predniSONE [Prednisone 20mg Tab] 20 mg PO BID #10 tab Azithromycin [Zithromax 250mg tab] 250 mg PO DIRECTED #6 tab Buprenorphine HCl [Subutex 8mg ODT] 16 mg SL DAILY tab.subl cephALEXin [Keflex 500mg Cap] 500 mg PO TID #30 cap Continued aspirin 81 mg tablet,delayed release 81 mg PO DAILY citalopram 40 mg tablet 40 mg PO DAILY #90 tab amitriptyline 25 mg tablet 25 mg PO QHS #90 tab atorvastatin 80 mg tablet 80 mg PO DAILY #90 tab pregabalin 300 mg capsule 300 mg PO BID #60 cap clonazepam 0.5 mg tablet 0.5 mg PO DAILY #30 tab tizanidine 4 mg capsule 4 mg PO BID PRN #180 cap PRN Reason: muscle spasticity Isosorbide Mononitrate [Imdur 60mg ER tablet] 60 mg PO DAILY Lisinopril [Lisinopril 2.5mg Tab] 2.5 mg PO DAILY Omeprazole [Omeprazole 20mg Capsule] 20 mg PO DAILY Clopidogrel Bisulfate [Plavix 75mg Tab] 75 mg PO DAILY Budesonide/Formoterol Fumarate [Symbicort] 2 puff INHALATION BID Nitroglycerin 0.4 mg SUBLINGUAL Q5MINP PRN PRN Reason: chest pain Buprenorphine HCl/Naloxone HCl [Buprenorphin-Naloxon 8-2 mg Sl] 2 each SL DAILY
== END 2019-02-06 13:30 | disposition home or self-care (01) | DRG 193 ==
LOC: ER 12:32 → 2ND 15:22
PROVIDERS: ADMIT Emergency Medicine; ATTEND Emergency Medicine
CPT/HCPCS: 36415; 70371; 70450; 71020; 71046; 80048; 80053; 80305; 81001; 82803; 83605; 85007; 85025; 87040; 87086; 87088; 87186; 92611; 93005; 94640; 94761; 96365; 96367; 96375; 99283; J0456; J0571

== ENCOUNTER → 2019-03-23 18:05 | Outpatient (CLI) | payer MEDICARE, MEDICAID, SELFPAY ==
[2019-03-23 22:16] LABS: Amphetamine/Metha Screen,Urine Negative ng/mL (<1000); Barbiturates Screen,Urine Negative ng/mL (<200); Benzodiazepines Screen,Urine Negative ng/mL (<200); Cannabinoid Screen,Urine Negative ng/mL (<50); Cocaine Screen,Urine Negative ng/mL (<300); Methadone Screen,Urine Negative ng/mL (<300); Opiate Screen,Urine Negative ng/mL (<300); Phencyclidine Screen,Urine Negative ng/mL (<25)
[2019-04-01 01:06] LABS: Alprazolam Negative (Cutoff=100); Benzodiazepines Positive ng/mL (Cutoff=100); Clonazepam Positive (.); Flurazepam Negative (Cutoff=100); Lorazepam Negative (Cutoff=100); Midazolam Negative (Cutoff=100); Temazepam Negative (Cutoff=100); Triazolam Negative (Cutoff=100)
[2019-04-01 03:29] LABS: Clonazepam Confirm 314 ng/mL (Cutoff=100)
== END ==
PROVIDERS: Visit Provider Emergency Medicine
DX: F41.9 Anxiety disorder, unspecified (principal); T50.901A Poisoning by unspecified drugs, medicaments and biological substances, accidental (unintentional), initial encounter
CPT/HCPCS: 80305; 80346

== ENCOUNTER → 2019-06-24 17:15 | Outpatient (CLI) | payer MEDICARE, MEDICAID, SELFPAY | PROVIDERS: Visit Provider Emergency Medicine | DX: R10.30 Lower abdominal pain, unspecified (principal) | CPT/HCPCS: 87086; 87088; 87186 ==

== ENCOUNTER → 2020-01-06 17:27 | Outpatient (CLI) | payer MEDICARE, MEDICAID, SELFPAY ==
[2020-01-06 18:00] LABS: Basophils % 0.3 % (0.1-2.0); Eosinophils # 0.2 K/mm3 (0.0-0.4); Eosinophils % 2.6 % (0.1-12.0); Hematocrit 40.1 % (37.0-47.0); Hemoglobin 13.3 g/dL (12.2-16.2); Lymphocytes # 2.9 K/mm3 (0.7-4.5); Lymphocytes % 31.6 % (10-50); Mean Corpuscular HGB Conc 33.3 g/dL (31.8-35.4); Mean Corpuscular Hemoglobin 28.2 pg (27.0-31.2); Mean Corpuscular Volume 84.7 fl (81-99); Mean Platelet Volume 10.9 fl (7.4-10.4); Monocytes # 0.6 K/mm3 (0.1-1.0); Neutrophils # 5.5 K/mm3 (1.8-7.8); Neutrophils % 59.5 % (37.0-80.0); Platelet Count 236 K/mm3 (142-424); Red Blood Count 4.74 M/mm3 (4.20-5.40); Red Cell Distribution Width 14.5 % (11.5-17.5); White Blood Count 9.3 K/mm3 (4.8-10.8)
[2020-01-06 18:34] LABS: Chloride 101 mmol/L (98-107); Sodium 137 mmol/L (136-145)
[2020-01-06 18:37] LABS: Alanine Aminotransferase 12 U/L (12-78); Albumin Level 3.8 g/dl (3.5-5.0); Albumin/Globulin Ratio 1.1 (1.1-1.8); Alkaline Phosphatase 147 U/L (38-126); Aspartate Amino Transferase 24 U/L (14-36); Bilirubin,Total 0.4 mg/dl (0.2-1.3); Blood Urea Nitrogen 7 mg/dl (7-17); Calcium 8.9 mg/dl (8.4-10.2); Carbon Dioxide 28 mmol/L (22.0-30.0); Estimated Glomerular Filt Rate 103 ml/min (>60); GFR (African American) 124 ML/MIN (>60); Globulin 3.4 g/dL (1.3-3.2); Glucose 94 mg/dl (74-100); Total Protein,Serum 7.2 g/dl (6.3-8.2)
[2020-01-06 19:07] LABS: Thyroid Stimulating Hormone 2.02 uIU/mL (0.465-4.68)
[2020-01-06 20:01] LABS: Free T4 (Free Thyroxine) 1.23 ng/dl (0.78-2.19)
[2020-01-09 08:25] LABS: Vitamin D 25 Hydroxy 10.7 ng/mL (30.0-100.0)
== END ==
PROVIDERS: Visit Provider Emergency Medicine
DX: J44.9 Chronic obstructive pulmonary disease, unspecified (principal); R27.0 Ataxia, unspecified; E55.9 Vitamin D deficiency, unspecified
CPT/HCPCS: 80053; 82652; 84439; 84443; 85025

== ENCOUNTER → 2020-01-24 09:34 | Outpatient (CLI) | payer MEDICARE, MEDICAID, SELFPAY ==
--- NOTE | 2020-01-24 09:34 | MR_ITS ---
PROCEDURE: MR HEAD/BRAIN WO CON CLINICAL INDICATION: ataxia COMPARISON: HEADWO CT head/brain wo con from 02/03/2019 TECHNIQUE: Standard unenhanced MRI protocol FINDINGS: There is no restricted diffusion abnormalities. Vertebral basilar vascular flow voids, 7th and 8th nerves and orbits are unremarkable. There are a few scattered foci of T2 prolongation within the subcortical and periventricular white matter. There is mild mucosal thickening of the sphenoidal and ethmoidal sinuses. Ventricles and calvarium are unremarkable. IMPRESSION: Mild sinusitis, mild supratentorial microischemia. Dictated by: Jay Rodriguez 01/24/2020 12:03 Electronically signed by Jay Rodriguez in [facility] 01/24/2020 12:03
== END ==
PROVIDERS: PCP Emergency Medicine; Visit Provider Emergency Medicine
DX: R27.0 Ataxia, unspecified (principal)
CPT/HCPCS: 70551

== ENCOUNTER 2020-02-29 11:19 | Emergency (ER) | payer MEDICARE, MEDICAID, SELFPAY ==
--- NOTE | 2020-02-29 11:14 | ECG_ITS ---
APPROVED REPORT Exam: Resting ECG HR:109 bpm ECG Measurements Heart Rate 109 AXES AR 116 P 68 QRSd 90 QRS 19 QT 332 T 50 QTc 447 <Conclusion> Sinus tachycardia Possible Left atrial enlargement Incomplete RBBB Nonspecific T wave abnormality Abnormal ECG Electronically signed by : Ajit Boyd, 03/02/2020 12:32:02
[2020-02-29 11:20] VITALS: BP 191/109; PULSE 111; RESP 19; TEMP 36.9; O2SAT 98; BMI 23.3
--- NOTE | 2020-02-29 11:21 | XR_ITS ---
PROCEDURE: XR CHEST PORTABLE CLINICAL HISTORY: Chest Pain COMPARISON: CXR2V XR chest 2V from 06/14/[address] chest wo con from 10/11/2018 CXR2V XR chest 2V from 10/11/2018 Chest from 02/05/2019 FINDINGS: No acute bony abnormalities. The cardiomediastinal silhouette and pulmonary vascularity are within normal limits. Multiple median sternotomy wires are again seen from prior open heart surgery. Persistently elevated left hemidiaphragm is seen with left basilar linear compressive atelectasis, which is increased since the prior exam. There is biapical pleural parenchymal mild thickening/scarring. There is no demonstrated consolidation, acute vascular congestion or pleural effusion of the visualized lungs. Gas-filled distended stomach and small bowel loops as seen under the elevated left hemidiaphragm. IMPRESSION: 1. Markedly elevated left hemidiaphragm is seen with left basilar linear compressive atelectasis. 2. No demonstrated consolidation, acute vascular congestion or substantial pleural effusion. 3. Gas-filled distended stomach and bowel loops are seen in the visualized left upper abdomen. Dictated by: Vesta Arreaga 02/29/2020 11:55 Electronically signed by Vesta Arreaga in [facility] 02/29/2020 11:55
--- NOTE | 2020-02-29 11:24 | [facility].EDCP ---
ED Disposition Clinical Impression: Atypical chest pain, Dehydration, Lung nodule Thoracic back pain Qualifiers: Chronicity: acute Back pain laterality: bilateral Qualified Code(s): M54.6 - Pain in thoracic spine Disposition: Home, Self-Care Condition on Discharge: Good Instructions: DI for Atypical Chest Pain, DI for Dehydration -- Adult, DI for Thoracic Back Pain Additional Instructions: Follow-up with your primary care provider in 2 to 3 days for reevaluation and further discussion of lung nodule. Return to the emergency room for any acute new concerns. - Critical Care Critical Care Time: No Attestation: On , the high probability of a clinically significant, sudden or life threatening deterioration of the following system(s) required my full and direct attention, intervention and personal management. The time I documented below is in addition to time spent performing reported procedures but includes the following listed in this critical care notation. Medical Decision Making - Medical Records Medical records reviewed: Yes: I reviewed the patient's medical records. - [place] Inquiry Pt receiving controlled substance: No Vital Signs: 02/29/20 11:20 02/29/20 11:46 02/29/20 13:09 Temperature 98.4 F Temperature Source Oral Pulse Rate [Radial] 111 H 93 H 89 Respiratory Rate 19 Blood Pressure [Right Arm] 191/109 H 174/105 H 158/111 H Blood Pressure Mean [Right Arm] 136 128 126 Blood Pressure Source [Right Arm] Automatic Cuff Automatic Cuff Automatic Cuff Blood Pressure Position [Right Arm] Sitting Sitting Sitting 02 Sat by Pulse Oximetry 98 96 98 Oxygen Delivery Method Room Air Room Air Room Air - Lab Data Lab results reviewed: Yes: I reviewed the patient's lab results. Lab Results 02/29/20 11:50: WBC 8.8, RBC 5.85 H, Hgb 16.3 H, Hct 47.4 H, MCV 81.1, MCH 27.9, MCHC 34.4, RDW 15.8, Plt Count 311, MPV 10.6 H, Neut % (Auto) 71.1, Lymph % (Auto) 23.3, [place] % (Auto) 4.3, Eos % (Auto) 0.8, Baso % (Auto) 0.4, Neut # (Auto) 6.3, Lymph # (Auto) 2.1, [place] # (Auto) 0.4, Eos # (Auto) 0.1, Baso # (Auto) 0.0 07/29/20 11:50: Sodium 137, Potassium 4.2, Chloride 99, Carbon Dioxide 27, Anion Gap 15.2 H, BUN 9, Creatinine 0.60, Estimated Creat Clear 102, Estimated GFR 103, Est GFR ( Amer) 124, Glucose 96, Calcium 9.7, Troponin I < 0.01 02/29/20 11:50: Total Bilirubin 0.7, Direct Bilirubin 0.3, Conjugated Bilirubin 0.0, Indirect Bilirubin 0.4, Unconjugated Bilirubin 0.4, AST 30, ALT 21, Alkaline Phosphatase 164 H, Total Protein 8.0, Albumin 4.2, Lipase 42 Result diagrams: 02/29/20 11:50 02/29/20 11:50 Orders (Tests/Meds): ED MEDICATIONS Generic Name Dose Route Start Last Admin Trade Name Freq PRN Reason Stop Dose Admin Sodium Chloride 1,000 mls @ 999 mls/hr 02/29/20 12:30 02/29/20 12:57 Sod Chlor 0.9% 1000ml Bag IV 02/29/20 13:30 999 mls/hr .Q1H1M LUCY Administration Discontinued Medications Generic Name Dose Route Start Last Admin Trade Name Freq PRN Reason Stop Dose Admin Aspirin 324 mg 02/29/20 11:51 02/29/20 11:53 Aspirin 81mg Chewable Tablet PO 02/29/20 11:52 324 mg ONCE ONE Administration Ioversol 100 ml 02/29/20 12:39 02/29/20 12:40 Rad-Optiray 350 100ml Vial IV 02/29/20 12:40 100 ml ONCE ONE Administration Protocol Sodium Chloride 10 ml 02/29/20 12:39 02/29/20 12:40 Rad-Saline Flush 10ml Syringe IV 02/29/20 12:40 10 ml ONCE ONE Administration Sodium Chloride 50 ml 02/29/20 12:39 02/29/20 12:40 Rad-Ns 50ml Vial IV 02/29/20 12:40 50 ml ONCE ONE Administration ORDERS Category Date Time Status CTA Chest [CT angio chest] Stat Cat Scan 02/29/20 11:37 Taken Troponin I Q3H Lab 02/29/20 14:30 Ordered Troponin I Q3H Lab 02/29/20 17:30 Ordered - Radiology Data #1 Image(s): Chest Image Reviewed: Yes I reviewed the patient's radiology image No acute cardiopulmonary process - CT Data CT Scan: Chest Time Received:
--- NOTE | 2020-02-29 11:37 | CT_ITS ---
PROCEDURE: CT ANGIO CHEST CLINCIAL INDICATION: dissection? Chest pain, rule out aortic dissection. COMPARISON: [facility] CT angio chest from 06/14/2018 TECHNIQUE: IV Contrast: 70ML OPTIRAY 350 Axial images obtained with sagittal and coronal reformats. All CT scans at the facility use one or more dose reduction, viz: automated exposure control, ma/kV adjustment per patient size (including targeted exams where dose is matched to indication, i.e. head), or iterative reconstruction technique. FINDINGS: HEART AND MEDIASTINAL STRUCTURES: Heart size is top normal with no pericardial effusion. Multiple sternotomy wires are present from prior open heart surgery. Aorta: There is mild atherosclerotic tortuosity of the aortic arch. Aorta is of normal caliber. There is no demonstrated thoracic aortic dissection. Pulmonary arteries: No abnormal intraluminal filling defects are identified within the opacified pulmonary arteries. Central pulmonary arteries are normal in size. There is a markedly elevated left hemidiaphragm with compressive left basilar atelectasis and decreased left lung volume. Gas-filled moderately distended stomach and portion of the spleen is seen extending superiorly into the left chest cavity. LUNGS AND PLEURAL SPACES: Possible COPD. There is biapical pleural parenchymal thickening and linear scarring. Scattered small linear interstitial opacities are seen bilaterally. A 8 millimeter nodule with surrounding linear atelectasis is seen peripherally in the inferior portion of the right middle lobe with uncertain etiology, probably a focal atelectasis although alternative etiologies not ruled out. BONY STRUCTURES: No acute bony abnormalities apparent. There is generalized bony demineralization. Increased thoracic kyphosis. UPPER ABDOMEN: Gas-filled distended stomach and multiple small bowel loops are seen under the left hemidiaphragm. ADDITIONAL FINDINGS: No other significant abnormalities. IMPRESSION: 1. No evidence of aortic aneurysm, dissection or pulmonary embolism demonstrated. 2. Markedly elevated left hemidiaphragm is seen with cephalad extension of the gas-filled distended gastric fundus and portion of the spleen. Question phrenic nerve palsy, diaphragmatic eventration etc. 3. Compressive atelectatic changes are seen with diminished left lung volume. 4. A small 8 millimeter lung nodule seen peripherally in the inferior portion of the right middle lobe, probably a focal atelectasis although alternative etiologies not ruled out. Consider short-term follow-up with CT exam in 6 months. 5. Gas-filled mild/moderately distended stomach and small bowel loops are seen in the visualized upper abdomen. Dictated by: Vesta Arreaga 02/29/2020 13:17 Electronically signed by Vesta Arreaga in [facility] 02/29/2020 13:17
--- NOTE | 2020-02-29 11:39 | PC.NURSE ---
lab work delayed due to pt being a difficult stick.
[2020-02-29 11:46] VITALS: BP 174/105; PULSE 93; O2SAT 96
[2020-02-29 11:57] LABS: Basophils % 0.4 % (0.1-2.0); Eosinophils # 0.1 K/mm3 (0.0-0.4); Eosinophils % 0.8 % (0.1-12.0); Hematocrit 47.4 % (37.0-47.0); Hemoglobin 16.3 g/dL (12.2-16.2); Lymphocytes # 2.1 K/mm3 (0.7-4.5); Lymphocytes % 23.3 % (10-50); Mean Corpuscular HGB Conc 34.4 g/dL (31.8-35.4); Mean Corpuscular Hemoglobin 27.9 pg (27.0-31.2); Mean Corpuscular Volume 81.1 fl (81-99); Mean Platelet Volume 10.6 fl (7.4-10.4); Monocytes # 0.4 K/mm3 (0.1-1.0); Monocytes % 4.3 % (1.7-9.3); Neutrophils # 6.3 K/mm3 (1.8-7.8); Neutrophils % 71.1 % (37.0-80.0); Platelet Count 311 K/mm3 (142-424); Red Blood Count 5.85 M/mm3 (4.20-5.40); Red Cell Distribution Width 15.8 % (11.5-17.5); White Blood Count 8.8 K/mm3 (4.8-10.8)
[2020-02-29 12:05] LABS: Chloride 99 mmol/L (98-107); Potassium 4.2 mmoL/L (3.5-5.1); Sodium 137 mmol/L (136-145)
[2020-02-29 12:08] LABS: Anion Gap 15.2 mEq/L (5-15); Blood Urea Nitrogen 9 mg/dl (7-17); Calcium 9.7 mg/dl (8.4-10.2); Carbon Dioxide 27 mmol/L (22.0-30.0); Creatinine Clearance Estimated 102 mL/min (50-200); Estimated Glomerular Filt Rate 103 ml/min (>60); GFR (African American) 124 ML/MIN (>60); Glucose 96 mg/dl (74-100)
--- NOTE | 2020-02-29 12:23 | PC.NURSE ---
Unable to obtained IV access in AC per CTA protocol, notified. Rad called and notified, stated they would assess the IV in the FA to see if they can use it.
[2020-02-29 12:41] LABS: Troponin I < 0.01 ng/ml (0.00-0.034)
[2020-02-29 12:54] LABS: Bilirubin,Unconjugated 0.4 mg/dL (0.0-1.1)
[2020-02-29 12:55] LABS: Alanine Aminotransferase 21 U/L (12-78); Albumin Level 4.2 g/dl (3.5-5.0); Alkaline Phosphatase 164 U/L (38-126); Aspartate Amino Transferase 30 U/L (14-36); Bilirubin,Direct 0.3 mg/dl (0.0-0.4); Bilirubin,Indirect 0.4 mg/dL (0.0-0.9); Bilirubin,Total 0.7 mg/dl (0.2-1.3); Lipase 42 U/L (23-300)
[2020-02-29 13:09] VITALS: BP 158/111; PULSE 89; O2SAT 98
[2020-02-29 13:34] VITALS: BP 158/111; PULSE 89; RESP 18; TEMP 36.7; O2SAT 98
== END 2020-02-29 13:36 | disposition home or self-care (01) ==
PROVIDERS: Emergency Provider Emergency Medicine; PCP Emergency Medicine
DX: E86.0 Dehydration (principal); R07.89 Other chest pain; R91.1 Solitary pulmonary nodule; M54.6 Pain in thoracic spine; I10 Essential (primary) hypertension; I25.10 Atherosclerotic heart disease of native coronary artery without angina pectoris; J44.9 Chronic obstructive pulmonary disease, unspecified; Z95.1 Presence of aortocoronary bypass graft; Z95.5 Presence of coronary angioplasty implant and graft; F41.8 Other specified anxiety disorders; I25.2 Old myocardial infarction; K21.9 Gastro-esophageal reflux disease without esophagitis; Z88.8 Allergy status to other drugs, medicaments and biological substances; F17.210 Nicotine dependence, cigarettes, uncomplicated; Z98.84 Bariatric surgery status; Z79.899 Other long term (current) drug therapy
CPT/HCPCS: 71045; 71275; 80048; 80076; 83690; 84484; 85025; 93005; 96365; 99284; Q9967

== ENCOUNTER → 2020-08-06 12:56 | Outpatient (CLI) | payer MEDICARE, MEDICAID, SELFPAY ==
[2020-08-06 13:28] LABS: Basophils % 0.3 % (0.1-2.0); Eosinophils # 0.1 K/mm3 (0.0-0.4); Eosinophils % 1.2 % (0.1-12.0); Hemoglobin 13.1 g/dL (12.2-16.2); Lymphocytes # 1.8 K/mm3 (0.7-4.5); Lymphocytes % 14.6 % (10-50); Mean Corpuscular HGB Conc 32.8 g/dL (31.8-35.4); Mean Corpuscular Hemoglobin 27.9 pg (27.0-31.2); Mean Corpuscular Volume 85.2 fl (81-99); Mean Platelet Volume 9.5 fl (7.4-10.4); Monocytes # 0.6 K/mm3 (0.1-1.0); Neutrophils # 9.8 K/mm3 (1.8-7.8); Neutrophils % 78.9 % (37.0-80.0); Platelet Count 269 K/mm3 (142-424); Red Blood Count 4.69 M/mm3 (4.20-5.40); White Blood Count 12.5 K/mm3 (4.8-10.8)
[2020-08-06 13:49] LABS: Anion Gap 11.1 mEq/L (5-15); Blood Urea Nitrogen 8 mg/dl (7-17); Carbon Dioxide 27 mmol/L (22.0-30.0); Chloride 100 mmol/L (98-107); Estimated Glomerular Filt Rate 102 ml/min (>60); GFR (African American) 124 ML/MIN (>60); Glucose 96 mg/dl (74-100); Potassium 4.1 mmoL/L (3.5-5.1); Sodium 134 mmol/L (136-145)
[2020-08-06 14:21] LABS: Coronavirus 19 IgG Antibody Negative (Negative); Coronavirus 19 IgM Antibody Negative (Negative)
== END ==
PROVIDERS: PCP Emergency Medicine; Visit Provider Internal Medicine
DX: Z01.818 Encounter for other preprocedural examination (principal); Z03.818 Encounter for observation for suspected exposure to other biological agents ruled out; I20.8 Other forms of angina pectoris
CPT/HCPCS: 36415; 80048; 85025; 86328

== ENCOUNTER 2020-08-07 09:09 | Day surgery (SDC) | payer MEDICARE, MEDICAID, SELFPAY ==
[2020-08-07] VITALS (18 sets, daily range): BP systolic 96–134; BP diastolic 51–66; PULSE 95–102; RESP 13–20; TEMP 36.6; O2SAT 91–100; BMI 25.3
--- NOTE | 2020-08-07 08:26 | IR_ITS ---
APPROVED REPORT Patient Location: Outpatient [facility]: RAHUL Ocampo RT (R) PROCEDURES Left heart catheterization Left ventriculogram Selective coronary angiogram Left internal mammary angiography Selective engagement of saphenous vein graft to circumflex artery Selective engage the saphenous vein graft to the right coronary INDICATION Known multivessel coronary disease, History of coronary bypass surgery, Accelerated angina pectoris with class IV angina Informed consent was obtained prior to the procedure. COMPLICATIONS none Estimated Blood Loss: less than 10 mls TECHNIQUE One percent lidocaine used to anesthetize the right groin. The right femoral artery was accessed via the Seldinger technique and a 5 Jamaican sheath was placed in the right femoral artery. A JL 4, JR4 catheter were used to perform left heart catheterization, left ventriculogram selective coronary angiography as well as selective engagement of the 2 vein grafts and the left internal mammary artery. At the end of the procedure the patient was transferred to the postop holding area in stable condition for sheath removal. ANGIOGRAPHIC RESULTS The left main artery Is patent at the ostial level however has a distal 90% concentric stenosis The left anterior descending artery A small 1 mm diagonal artery originates from the proximal LAD. Immediately after the diagonal artery the LAD is occluded The circumflex artery Ostially occluded The right coronary artery Proximally subtotally occluded The ORTEGA ventriculogram reveals Normal 60% The left ventricular end-diastolic pressure 10 mmHg The left internal mammary artery is widely patent to the mid LAD The saphenous vein graft to the circumflex artery is patent Saphenous vein graft to the large posterior descending artery is patent. The stent placed in the posterior descending artery previously is widely patent with excellent retrograde filling of the posterior descending artery IMPRESSION Adequate three-vessel coronary artery revascularization as described above Normal ejection fraction Normal left ventricular end-diastolic pressure Progressive symptomatology secondary to medicinal noncompliance with beta-blockers as well as decompensated lung disease PLAN 1. Referral to pulmonology 2. Continue with beta-blockers to control tachycardia 3. Treat underlying lung disease which is almost certainly the etiology for patient's is accelerated chest pain and symptomatology 4. Avoidance of tobacco products 5. LDL less than 55 6. Cardiopulmonary physical therapy Electronically signed by : Juanito Padilla, 08/07/2020 11:36:02
== END 2020-08-07 14:53 | disposition home or self-care (01) ==
LOC: CATHLAB 09:12
PROVIDERS: PCP Emergency Medicine; Visit Provider Internal Medicine
DX: I11.0 Hypertensive heart disease with heart failure; R06.09 Other forms of dyspnea; Z95.1 Presence of aortocoronary bypass graft; I25.110 Atherosclerotic heart disease of native coronary artery with unstable angina pectoris; J44.9 Chronic obstructive pulmonary disease, unspecified; I25.2 Old myocardial infarction; Z72.0 Tobacco use; I50.9 Heart failure, unspecified; Z79.82 Long term (current) use of aspirin; E78.2 Mixed hyperlipidemia; Z79.51 Long term (current) use of inhaled steroids; Z79.899 Other long term (current) drug therapy
CPT/HCPCS: 93459; 99152; C1725; C1769; C1894; J1644; Q9967

== ENCOUNTER → 2020-09-25 19:13 | Outpatient (CLI) | payer MEDICARE, MEDICAID, SELFPAY ==
[2020-09-25 23:57] LABS: Amphetamine/Metha Screen,Urine Negative ng/ml (<1000)
[2020-09-25 23:58] LABS: Barbiturates Screen,Urine Negative ng/ml (<200)
[2020-09-25 23:59] LABS: Benzodiazepines Screen,Urine Negative ng/ml (<200)
[2020-09-26] LABS: Cannabinoid Screen,Urine Negative ng/ml (<50); Cocaine Screen,Urine Negative ng/ml (<300)
[2020-09-26 00:01] LABS: Methadone Screen,Urine Negative ng/ml (<300)
[2020-09-26 00:02] LABS: Opiate Screen,Urine Negative ng/ml (<300); Phencyclidine Screen,Urine Negative ng/ml (<25)
== END ==
PROVIDERS: Visit Provider Emergency Medicine
DX: T50.901A Poisoning by unspecified drugs, medicaments and biological substances, accidental (unintentional), initial encounter (principal)
CPT/HCPCS: 80305

== ENCOUNTER → 2020-10-12 13:56 | Outpatient (CLI) | payer MEDICARE, MEDICAID, SELFPAY ==
[2020-10-12 14:29] LABS: Barbiturates Screen,Urine Negative ng/ml (<200)
[2020-10-12 14:30] LABS: Benzodiazepines Screen,Urine Negative ng/ml (<200)
[2020-10-12 14:32] LABS: Cannabinoid Screen,Urine Negative ng/ml (<50)
[2020-10-12 14:33] LABS: Cocaine Screen,Urine Negative ng/ml (<300); Methadone Screen,Urine Negative ng/ml (<300)
[2020-10-12 14:34] LABS: Opiate Screen,Urine Negative ng/ml (<300)
[2020-10-12 14:35] LABS: Phencyclidine Screen,Urine Negative ng/ml (<25)
[2020-10-17 18:47] LABS: Amphetamine Positive (.); Amphetamines Positive (.); Methamphetamine Positive (.)
[2020-10-17 22:29] LABS: Amphetamine (GC/MS) >3000 ng/mL (Cutoff=500); Methamphetamine (GC/MS) >3000 ng/mL (Cutoff=500)
== END ==
PROVIDERS: Visit Provider Emergency Medicine
DX: Z79.899 Other long term (current) drug therapy (principal)
CPT/HCPCS: 80305; 80324

== ENCOUNTER 2020-10-15 12:34 | Emergency (ER) | payer MEDICARE, MEDICAID, SELFPAY ==
[2020-10-15] VITALS (42 sets, daily range): BP systolic 114–155; BP diastolic 67–94; PULSE 74–92; RESP 16–18; TEMP 36.8–36.9; O2SAT 91–100; BMI 23.6
--- NOTE | 2020-10-15 12:42 | ECG_ITS ---
APPROVED REPORT Exam: Resting ECG HR:103 bpm ECG Measurements Heart Rate 103 AXES NE 114 P 70 QRSd 98 QRS 15 QT 340 T 60 QTc 445 Conclusion Sinus tachycardia Possible Left atrial enlargement Incomplete right bundle branch block Nonspecific T wave abnormality Abnormal ECG Electronically signed by : Rafi Levine, 10/16/2020 19:38:48
--- NOTE | 2020-10-15 12:52 | XR_ITS ---
PROCEDURE: XR CHEST 2V CLINICAL HISTORY: pain under right breast COMPARISON: DX CXR2V XR chest 2V from 10/11/2018 CR Chest from 02/05/2019 CR XR CHEST PORTABLE from 02/29/[address] ANGIO CHEST from 02/29/2020 FINDINGS: There has been a prior median sternotomy. Left hemidiaphragm is elevated with left basilar atelectasis. Normal heart size. There is dense consolidation in the right lower lobe consistent pneumonia. No acute bony findings. No acute bony abnormalities. IMPRESSION: Right lower lobe pneumonia. Recommend following till clear Dictated by: Abdulkadir Lofton MD 10/15/2020 14:05 Abdulkadir Lofton MD in [place] 10/15/2020 14:05
[2020-10-15 13:37] LABS: Basophils # 0.1 K/mm3 (0-0.2); Basophils % 0.4 % (0.1-2.0); Eosinophils # 0.1 K/mm3 (0.0-0.4); Eosinophils % 0.5 % (0.1-12.0); Hematocrit 42.6 % (37.0-47.0); Hemoglobin 13.7 g/dL (12.2-16.2); Lymphocytes # 1.6 K/mm3 (0.7-4.5); Lymphocytes % 12.6 % (10-50); Mean Corpuscular HGB Conc 32.1 g/dL (31.8-35.4); Mean Corpuscular Hemoglobin 26.7 pg (27.0-31.2); Mean Corpuscular Volume 83.2 fl (81-99); Mean Platelet Volume 7.8 fl (7.4-10.4); Monocytes # 0.5 K/mm3 (0.1-1.0); Monocytes % 3.5 % (1.7-9.3); Neutrophils # 10.8 K/mm3 (1.8-7.8); Neutrophils % 83.1 % (37.0-80.0); Platelet Count 450 K/mm3 (142-424); Red Blood Count 5.12 M/mm3 (4.20-5.40); Red Cell Distribution Width 15.8 % (11.5-17.5)
[2020-10-15 13:38] LABS: Chloride 101 mmol/L (98-107); Sodium 136 mmol/L (136-145)
[2020-10-15 13:39] LABS: Potassium 4.3 mmoL/L (3.5-5.1)
[2020-10-15 13:41] LABS: Alanine Aminotransferase 9 U/L (12-78); Alkaline Phosphatase 181 U/L (38-126); Anion Gap 13.3 mEq/L (5-15); Aspartate Amino Transferase 17 U/L (14-36); Bilirubin,Total 0.7 mg/dl (0.2-1.3); Blood Urea Nitrogen 12 mg/dl (7-17); Carbon Dioxide 26 mmol/L (22.0-30.0); Creatinine Clearance Estimated 88 mL/min (50-200); Estimated Glomerular Filt Rate 86 ml/min (>60); GFR (African American) 104 ML/MIN (>60)
[2020-10-15 13:42] LABS: Albumin Level 4.3 g/dl (3.5-5.0); Albumin/Globulin Ratio 0.9 (1.1-1.8); Calcium 9.7 mg/dl (8.4-10.2); Globulin 4.8 g/dL (1.3-3.2); Glucose 113 mg/dl (74-100); Total Protein,Serum 9.1 g/dl (6.3-8.2)
[2020-10-15 13:56] LABS: Troponin I < 0.01 ng/ml (0.00-0.034)
--- NOTE | 2020-10-15 14:58 | HMH.EDGENADL ---
ED Disposition Clinical Impression: Pulmonary mass, Postobstructive pneumonia Disposition: Xfer Short-Term Hosp Condition on Discharge: Good Referrals: Garrison Morales MD [Primary Care Provider] - Time of Disposition: 18:02 - Critical Care Critical Care Time: No Attestation: On 10/15/20, the high probability of a clinically significant, sudden or life threatening deterioration of the following system(s) required my full and direct attention, intervention and personal management. The time I documented below is in addition to time spent performing reported procedures but includes the following listed in this critical care notation. Medical Decision Making - [place] Inquiry Pt receiving controlled substance: No Vital Signs: 10/15/20 12:46 10/15/20 13:19 10/15/20 13:33 Temperature 98.3 F Temperature Source Oral Pulse Rate [Right] 74 Respiratory Rate 16 Blood Pressure Blood Pressure [Right Arm] 114/74 Blood Pressure Mean Blood Pressure Mean [Right Arm] 87 Blood Pressure Source [Right Arm] Automatic Cuff Blood Pressure Position [Right Arm] Sitting 02 Sat by Pulse Oximetry 98 100 97 Oxygen Delivery Method Room Air 10/15/20 13:45 10/15/20 14:00 10/15/20 14:15 Temperature Temperature Source Pulse Rate [Right] Respiratory Rate 18 Blood Pressure 149/83 H Blood Pressure [Right Arm] Blood Pressure Mean 105 Blood Pressure Mean [Right Arm] Blood Pressure Source [Right Arm] Blood Pressure Position [Right Arm] 02 Sat by Pulse Oximetry 97 100 100 Oxygen Delivery Method 10/15/20 14:30 10/15/20 14:45 Temperature 98.5 F Temperature Source Oral Pulse Rate [Right] Respiratory Rate 18 Blood Pressure 143/84 H Blood Pressure [Right Arm] Blood Pressure Mean 106 Blood Pressure Mean [Right Arm] Blood Pressure Source [Right Arm] Blood Pressure Position [Right Arm] 02 Sat by Pulse Oximetry 100 100 Oxygen Delivery Method - Lab Data Lab results reviewed: Yes: I reviewed the patient's lab results. Lab Results 10/15/20 13:22: WBC 13.0 H, RBC 5.12, Hgb 13.7, Hct 42.6, MCV 83.2, MCH 26.7 L, MCHC 32.1, RDW 15.8, Plt Count 450 H, MPV 7.8, Neut % (Auto) 83.1 H, Lymph % (Auto) 12.6, [place] % (Auto) 3.5, Eos % (Auto) 0.5, Baso % (Auto) 0.4, Neut # (Auto) 10.8 H, Lymph # (Auto) 1.6, [place] # (Auto) 0.5, Eos # (Auto) 0.1, Baso # (Auto) 0.1 10/15/20 13:22: Sodium 136, Potassium 4.3, Chloride 101, Carbon Dioxide 26, Anion Gap 13.3, BUN 12, Creatinine 0.70, Estimated Creat Clear 88, Estimated GFR 86, Est GFR ( Amer) 104, Glucose 113 H, Calcium 9.7, Total Bilirubin 0.7, AST 17, ALT 9 L, Alkaline Phosphatase 181 H, Troponin I < 0.01, Total Protein 9.1 H, Albumin 4.3, Globulin 4.8 H, Albumin/Globulin Ratio 0.9 L Result diagrams: 10/15/20 13:22 10/15/20 13:22 Orders (Tests/Meds): ED MEDICATIONS Discontinued Medications Generic Name Dose Route Start Last Admin Trade Name Micah PRN Reason Stop Dose Admin Iopamidol 70 ml 10/15/20 16:05 10/15/20 16:06 Iopamidol-370 (76%);100ml Bottle IV 10/15/20 16:06 70 ml ONCE ONE Administration Ketorolac Tromethamine 15 mg 10/15/20 15:06 10/15/20 15:14 Ketorolac 30mg/Ml Vial IV 10/15/20 15:07 15 mg ONCE ONE Administration Morphine Sulfate 4 mg 10/15/20 17:49 10/15/20 17:50 Morphine 4mg/Ml Syringe IV 10/15/20 17:50 4 mg ONCE ONE Administration Ondansetron HCl 4 mg 10/15/20 17:01 10/15/20 17:23 Ondansetron 4mg/2ml Vial IV 10/15/20 17:02 4 mg ONCE ONE Administration Sodium Chloride 50 ml 10/15/20 16:05 10/15/20 16:06 0.9 % Sodium Chloride 50 Ml Vial IV 10/15/20 16:06 50 ml ONCE ONE Administration Sodium Chloride 10 ml 10/15/20 16:05 10/15/20 16:06 Sodium Chloride 0.9% 10ml Syr (Rad Only) IV 10/15/20 16:06 10 ml ONCE ONE Administration ORDERS Category Date Time Status Full Resp Panel w/COVID ([facility]) Routine Lab 10/15/20 16:10 Received
--- NOTE | 2020-10-15 15:06 | CT_ITS ---
PROCEDURE: CT ANGIO CHEST CLINCIAL INDICATION: r/o PE, R sided pain Right-sided chest pain COMPARISON: CT CT ANGIO CHEST from 02/29/[address] ABDOMEN PELVIS W CON from 10/15/2020 TECHNIQUE: IV Contrast: 70ML Isovue 370 Axial images obtained with sagittal and coronal reformats. All CT scans at the facility use one or more dose reduction, viz: automated exposure control, ma/kV adjustment per patient size (including targeted exams where dose is matched to indication, i.e. head), or iterative reconstruction technique. FINDINGS: HEART AND MEDIASTINAL STRUCTURES: No evidence of aortic aneurysm or dissection. No evidence of pulmonary embolus. There are few scattered small lymph nodes within the mediastinum. Mild subcarinal adenopathy is present at 2.7 x 1.1 cm with some calcification in this region. Right hilar nodes are slightly prominent. LUNGS AND PLEURAL SPACES: COPD changes with scattered areas of scarring. In the right lower lobe anteriorly and in the right middle lobe there is soft tissue density which measures 5 cm AP and 5 cm transverse. This may be due to masslike area of consolidation. Neoplasm is also consideration. Consolidation is also present in the right middle lobe medially with some mild bronchiectasis. Prominent interstitial markings are present in the right lower lobe. There are atelectatic changes in the left lower lobe. Left hemidiaphragm is elevated. This was present on the previous exam. Atelectatic changes are present in the right lung base medially as well. BONY STRUCTURES: No acute bony anomalies are evident. Masslike area of soft tissue density in the right middle and right lower lobe does not appear to be extending through the chest wall or invading the chest wall. UPPER ABDOMEN: Images obtained of the abdomen which cover the lower chest show that the areas of consolidation in the right middle lobe demonstrates low-density on the delayed images within area measuring approximately 2.4 x 2 cm consistent with an area pulmonary necrosis or abscess. A separate area of low density is present in the right middle lobe anteriorly measuring approximately 1 cm with similar differential diagnosis. ADDITIONAL FINDINGS: No other significant abnormalities. IMPRESSION: 1. No evidence of pulmonary embolus or aortic aneurysm. 2. Masslike area of consolidation versus pulmonary mass in the right lower lobe and right middle lobe inferiorly associated with mild right hilar and mild mediastinal adenopathy. On the delayed images of the abdomen there are low-dense regions within these areas of consolidation consistent with pulmonary necrosis or developing abscess with surrounding pneumonia. Necrotic neoplasm however is not excluded and follow-up is suggested. 3. Atelectatic changes are present in the right lower lobe and left lower lobe and right middle lobe. Dictated by: Abdulkadir Lofton MD 10/15/2020 16:32 Abdulkadir Lofton MD in [place] 10/15/2020 16:32
--- NOTE | 2020-10-15 15:09 | PC.NURSE ---
notified rad of CT order
--- NOTE | 2020-10-15 15:38 | PC.NURSE ---
pt to CT
--- NOTE | 2020-10-15 15:47 | CT_ITS ---
PROCEDURE: CT ABDOMEN PELVIS W CON CLINICAL INDICATION: air seen on Ct chest Right-sided pain COMPARISON: No exams were available for comparison TECHNIQUE: IV Contrast: 75ML Isovue 370 Oral Contrast None Axial images obtained with sagittal and coronal reformats. All CT scans at the facility use one or more dose reduction, viz: automated exposure control, ma/kV adjustment per patient size (including targeted exams where dose is matched to indication, i.e. head), or iterative reconstruction technique. FINDINGS: LOWER THORAX: Please see chest CT report ABDOMEN & PELVIS: There has been a prior CABG. Low-density changes are present in the right hepatic lobe along the superior aspect of the gallbladder fossa and may be due to focal fatty infiltration. There is mild prominence of the biliary tree with common bile duct measuring up to 9 mm. The spleen and adrenal glands are unremarkable. No obvious pancreatic mass. Kidneys have an unremarkable appearance. Rectal fecal impaction is present. The rectum measures 7.5 cm in transverse dimension. There has been a prior hysterectomy. Moderate amount of retained colonic feces is present in the remaining colon. There is given history of prior appendectomy. Widespread gas-filled loops of small bowel are noted with air-fluid levels with air also in the ascending and transverse colon which may represent ileus. There is mild gaseous distention of the stomach. No acute bony findings. IMPRESSION: 1. Rectal fecal impaction with gas-filled loops of large and small bowel suggesting ileus. 2. Suspect focal fatty infiltration of the liver. 3. Mild prominence of the common bile duct at 9 mm the etiology indeterminate Dictated by: Abdulkadir Lofton MD 10/15/2020 16:40 Abdulkadir Lofton MD in [place] 10/15/2020 16:40
--- NOTE | 2020-10-15 15:51 | PC.NURSE ---
CT staff called down states there is air seen in pt abd during ct chest, asked if er md would like pt to have abd ct, ER MD gave verbal order for CT abd/pelvis with contrast
[2020-10-15 16:19] LABS: Adenovirus,PCR Not Detected (NotDetected); Bordetella Pertussis Not Detected (NotDetected); Chlamydophila Pneumoniae, PCR Not Detected (NotDetected); Coronavirus 19, PCR Not Detected (NotDetected); Coronavirus 229E Not Detected (NotDetected); Coronavirus NL63 Not Detected (NotDetected); Coronavirus OC43 Not Detected (NotDetected); Coronovirus HKU1,PCR Not Detected (NotDetected); Human Metapneumovirus Not Detected (NotDetected); Influenza A, PCR Not Detected (NotDetected); Influenza AH1, 2009 Not Detected (NotDetected); Influenza AH1, PCR Not Detected (NotDetected); Influenza AH3,PCR Not Detected (NotDetected); Influenza B, PCR Not Detected (NotDetected); Mycoplasma Pneumoniae, PCR Not Detected (NotDetected); Parainfluenza 1, PCR Not Detected (NotDetected); Parainfluenza 2, PCR Not Detected (NotDetected); Parainfluenza 3, PCR Not Detected (NotDetected); Parainfluenza 4, PCR Not Detected (NotDetected); Respiratory Syncytial Virus Not Detected (NotDetected); Rhinovirus/Enterovirus Not Detected (NotDetected)
--- NOTE | 2020-10-15 17:10 | PC.NURSE ---
on hold with [facility], er md requests to speak with hospitalist about transfer for pt.
--- NOTE | 2020-10-15 17:13 | PC.NURSE ---
[facility] states they will call us back when hospitalist is on the line
--- NOTE | 2020-10-15 18:01 | PC.NURSE ---
DR Platt spoke with [facility] Dr Thompson
[2020-10-16] VITALS (13 sets, daily range): BP systolic 112–133; BP diastolic 61–79; PULSE 76; RESP 96; TEMP 36.6; O2SAT 91–98
--- NOTE | 2020-10-16 02:43 | PC.NURSE ---
@ 021Ananda Wu from [facility] center called to give bed assignment. [facility], [address] - room 300. Report phone# [phone] @ [phone] Called, s/w Annita [facility].
--- NOTE | 2020-10-16 03:12 | PC.NURSE ---
FATIMAH HERE TO TRANSFER PT TO [facility], REPORT & DISC/ER DOCUMENTATION GIVEN FOR TRANSPORT
== END 2020-10-16 03:16 | disposition short-term general hospital (02) ==
PROVIDERS: Emergency Provider Family Medicine; PCP Emergency Medicine
DX: J18.9 Pneumonia, unspecified organism (principal); R91.8 Other nonspecific abnormal finding of lung field; F41.8 Other specified anxiety disorders; I10 Essential (primary) hypertension; E78.5 Hyperlipidemia, unspecified; I25.10 Atherosclerotic heart disease of native coronary artery without angina pectoris; K21.9 Gastro-esophageal reflux disease without esophagitis; I25.2 Old myocardial infarction; J44.9 Chronic obstructive pulmonary disease, unspecified; F17.210 Nicotine dependence, cigarettes, uncomplicated; Z79.899 Other long term (current) drug therapy
CPT/HCPCS: 36415; 71046; 71275; 74177; 80053; 84484; 85025; 87581; 87633; 87798; 93005; 96365; 96375; 96376; 99284; J2405; J2543; Q9967

== ENCOUNTER → 2020-10-22 14:52 | Outpatient (CLI) | payer MEDICARE, MEDICAID, SELFPAY ==
[2020-10-22 17:29] LABS: Amphetamine/Metha Screen,Urine Negative ng/ml (<1000)
[2020-10-22 17:30] LABS: Barbiturates Screen,Urine Negative ng/ml (<200); Benzodiazepines Screen,Urine Negative ng/ml (<200)
[2020-10-22 17:31] LABS: Cannabinoid Screen,Urine Negative ng/ml (<50)
[2020-10-22 17:32] LABS: Cocaine Screen,Urine Negative ng/ml (<300); Methadone Screen,Urine Negative ng/ml (<300)
[2020-10-22 17:33] LABS: Opiate Screen,Urine Positive ng/ml (<300); Phencyclidine Screen,Urine Negative ng/ml (<25)
== END ==
PROVIDERS: Visit Provider Emergency Medicine
DX: Z79.899 Other long term (current) drug therapy (principal)
CPT/HCPCS: 80305

== ENCOUNTER → 2020-11-19 14:41 | Outpatient (CLI) | payer MEDICARE, MEDICAID, SELFPAY ==
[2020-11-19 16:18] LABS: Amphetamine/Metha Screen,Urine Negative ng/ml (<1000)
[2020-11-19 16:19] LABS: Barbiturates Screen,Urine Negative ng/ml (<200)
[2020-11-19 16:20] LABS: Benzodiazepines Screen,Urine Negative ng/ml (<200); Cannabinoid Screen,Urine Negative ng/ml (<50)
[2020-11-19 16:21] LABS: Cocaine Screen,Urine Negative ng/ml (<300)
[2020-11-19 16:22] LABS: Methadone Screen,Urine Negative ng/ml (<300); Opiate Screen,Urine Positive ng/ml (<300)
[2020-11-19 16:23] LABS: Phencyclidine Screen,Urine Negative ng/ml (<25)
== END ==
PROVIDERS: Visit Provider Emergency Medicine
DX: M54.6 Pain in thoracic spine (principal); T50.901A Poisoning by unspecified drugs, medicaments and biological substances, accidental (unintentional), initial encounter
CPT/HCPCS: 80305

== ENCOUNTER → 2020-12-12 18:00 | Outpatient (CLI) | payer MEDICARE, MEDICAID, SELFPAY ==
[2020-12-12 18:41] LABS: Amphetamine/Metha Screen,Urine Negative ng/ml (<1000); Barbiturates Screen,Urine Negative ng/ml (<200)
[2020-12-12 18:42] LABS: Benzodiazepines Screen,Urine Negative ng/ml (<200)
[2020-12-12 18:43] LABS: Cannabinoid Screen,Urine Negative ng/ml (<50)
[2020-12-12 18:45] LABS: Cocaine Screen,Urine Negative ng/ml (<300); Methadone Screen,Urine Negative ng/ml (<300)
[2020-12-12 18:46] LABS: Opiate Screen,Urine Positive ng/ml (<300); Phencyclidine Screen,Urine Negative ng/ml (<25)
== END ==
PROVIDERS: Visit Provider Emergency Medicine
DX: Z79.899 Other long term (current) drug therapy (principal); M54.6 Pain in thoracic spine
CPT/HCPCS: 80305

== ENCOUNTER → 2021-01-14 17:36 | Outpatient (CLI) | payer MEDICARE, MEDICAID, SELFPAY ==
[2021-01-14 18:36] LABS: Amphetamine/Metha Screen,Urine Negative ng/ml (<1000); Barbiturates Screen,Urine Negative ng/ml (<200)
[2021-01-14 18:37] LABS: Benzodiazepines Screen,Urine Negative ng/ml (<200)
[2021-01-14 18:38] LABS: Cannabinoid Screen,Urine Negative ng/ml (<50)
[2021-01-14 18:39] LABS: Cocaine Screen,Urine Negative ng/ml (<300)
[2021-01-14 18:40] LABS: Methadone Screen,Urine Negative ng/ml (<300)
[2021-01-14 18:41] LABS: Opiate Screen,Urine Positive ng/ml (<300); Phencyclidine Screen,Urine Negative ng/ml (<25)
== END ==
PROVIDERS: Visit Provider Emergency Medicine
DX: Z79.899 Other long term (current) drug therapy (principal)
CPT/HCPCS: 80305

== ENCOUNTER → 2021-02-08 17:42 | Outpatient (CLI) | payer MEDICARE, MEDICAID, SELFPAY ==
[2021-02-08 18:41] LABS: Amphetamine/Metha Screen,Urine Negative ng/ml (<1000); Barbiturates Screen,Urine Negative ng/ml (<200)
[2021-02-08 18:43] LABS: Benzodiazepines Screen,Urine Negative ng/ml (<200)
[2021-02-08 18:44] LABS: Cannabinoid Screen,Urine Negative ng/ml (<50); Cocaine Screen,Urine Negative ng/ml (<300)
[2021-02-08 18:45] LABS: Methadone Screen,Urine Negative ng/ml (<300)
[2021-02-08 18:46] LABS: Opiate Screen,Urine Positive ng/ml (<300); Phencyclidine Screen,Urine Negative ng/ml (<25)
== END ==
PROVIDERS: Visit Provider Emergency Medicine
DX: Z79.899 Other long term (current) drug therapy (principal)
CPT/HCPCS: 80305

== ENCOUNTER → 2021-03-18 14:37 | Outpatient (CLI) | payer MEDICARE, MEDICAID, SELFPAY ==
[2021-03-18 17:36] LABS: Amphetamine/Metha Screen,Urine Negative ng/ml (<1000); Barbiturates Screen,Urine Negative ng/ml (<200)
[2021-03-18 17:37] LABS: Benzodiazepines Screen,Urine Negative ng/ml (<200); Cannabinoid Screen,Urine Negative ng/ml (<50)
[2021-03-18 17:38] LABS: Cocaine Screen,Urine Negative ng/ml (<300)
[2021-03-18 17:39] LABS: Methadone Screen,Urine Negative ng/ml (<300); Opiate Screen,Urine Positive ng/ml (<300)
[2021-03-18 17:40] LABS: Phencyclidine Screen,Urine Negative ng/ml (<25)
== END ==
PROVIDERS: Visit Provider Emergency Medicine
DX: Z79.899 Other long term (current) drug therapy (principal)
CPT/HCPCS: 80305

== ENCOUNTER 2021-05-02 09:33 | Emergency (ER) | payer MEDICARE, MEDICAID, SELFPAY ==
[2021-05-02 11:21] VITALS: BP 0/0; PULSE 0; RESP 0; TEMP -17.7; TEMP 0
== END 2021-05-02 11:22 | disposition left against medical advice (07) ==
LOC: UTC 09:36
PROVIDERS: Emergency Provider Nurse Practitioner Family; PCP Emergency Medicine
DX: Z53.21 Procedure and treatment not carried out due to patient leaving prior to being seen by health care provider (principal)

== ENCOUNTER → 2021-05-02 09:54 | Outpatient (CLI) | payer MEDICARE, MEDICAID, SELFPAY | PROVIDERS: PCP Emergency Medicine; Visit Provider Nurse Practitioner | DX: Z20.822 Contact with and (suspected) exposure to COVID-19 (principal) | CPT/HCPCS: C9803; U0003; U0005 ==

== ENCOUNTER → 2021-05-15 17:24 | Outpatient (CLI) | payer MEDICARE, MEDICAID, SELFPAY ==
[2021-05-15 20:08] LABS: Amphetamine/Metha Screen,Urine Negative ng/ml (<1000); Benzodiazepines Screen,Urine Negative ng/ml (<200)
[2021-05-15 20:10] LABS: Cannabinoid Screen,Urine Negative ng/ml (<50); Cocaine Screen,Urine Negative ng/ml (<300)
[2021-05-15 20:11] LABS: Methadone Screen,Urine Negative ng/ml (<300); Opiate Screen,Urine Negative ng/ml (<300)
[2021-05-15 20:12] LABS: Phencyclidine Screen,Urine Negative ng/ml (<25)
[2021-05-15 20:17] LABS: Barbiturates Screen,Urine Negative ng/ml (<200)
== END ==
PROVIDERS: Visit Provider Emergency Medicine
DX: Z79.899 Other long term (current) drug therapy (principal); R82.90 Unspecified abnormal findings in urine; B96.20 Unspecified Escherichia coli [E. coli] as the cause of diseases classified elsewhere
CPT/HCPCS: 80305; 87086; 87088; 87186

== ENCOUNTER → 2021-07-03 18:15 | Outpatient (CLI) | payer MEDICARE, MEDICAID, SELFPAY ==
[2021-07-03 19:15] LABS: Amphetamine/Metha Screen,Urine Negative ng/ml (<1000)
[2021-07-03 19:16] LABS: Barbiturates Screen,Urine Negative ng/ml (<200); Benzodiazepines Screen,Urine Negative ng/ml (<200)
[2021-07-03 19:17] LABS: Cannabinoid Screen,Urine Negative ng/ml (<50); Cocaine Screen,Urine Negative ng/ml (<300)
[2021-07-03 19:18] LABS: Methadone Screen,Urine Negative ng/ml (<300)
[2021-07-03 19:19] LABS: Opiate Screen,Urine Positive ng/ml (<300); Phencyclidine Screen,Urine Negative ng/ml (<25)
== END ==
PROVIDERS: Visit Provider Emergency Medicine
DX: Z79.899 Other long term (current) drug therapy (principal)
CPT/HCPCS: 80305

== ENCOUNTER → 2021-09-02 12:42 | Outpatient (CLI) | payer MEDICARE, MEDICAID, SELFPAY ==
[2021-09-02 19:24] LABS: Amphetamine/Metha Screen,Urine Negative ng/ml (<1000)
[2021-09-02 19:25] LABS: Barbiturates Screen,Urine Negative ng/ml (<200); Benzodiazepines Screen,Urine Negative ng/ml (<200)
[2021-09-02 19:26] LABS: Cannabinoid Screen,Urine Negative ng/ml (<50)
[2021-09-02 19:27] LABS: Cocaine Screen,Urine Negative ng/ml (<300); Methadone Screen,Urine Negative ng/ml (<300)
[2021-09-02 19:28] LABS: Opiate Screen,Urine Positive ng/ml (<300); Phencyclidine Screen,Urine Negative ng/ml (<25)
== END ==
PROVIDERS: Visit Provider Emergency Medicine
DX: T50.901A Poisoning by unspecified drugs, medicaments and biological substances, accidental (unintentional), initial encounter (principal); Z79.899 Other long term (current) drug therapy
CPT/HCPCS: 80305

== ENCOUNTER 2021-09-30 14:04 | Observation (INO) | payer MEDICARE, MEDICAID, SELFPAY ==
[2021-09-30 14:06] VITALS: BMI 26.0
[2021-09-30 14:20] VITALS: O2SAT 99
[2021-09-30 14:28] VITALS: BP 165/92; PULSE 96; RESP 18; TEMP 36.9; O2SAT 99
--- NOTE | 2021-09-30 14:29 | XR_ITS ---
FINAL REPORT CLINICAL HISTORY: afib COMPARISON: 10/15/2020 FINDINGS: A single view of the chest was obtained. The heart is normal in size. The patient is status post median sternotomy. There is persistent elevation of the left hemidiaphragm. There is bibasilar atelectasis. There is no pleural effusion. There is no pneumothorax. There is no acute osseous abnormality. IMPRESSION: Bibasilar atelectasis. Persistent elevation of left hemidiaphragm. Reviewed, Interpreted and Dictated by Buddy Kang III, MD Transcribed by Edelmira Mills Authenticated by Buddy Kang III, MD on 09/30/2021 04:38:38 PM [facility]
[2021-09-30 14:49] LABS: Coronavirus 19, PCR Not Detected (NotDetected); Influenza A, PCR Not Detected (NotDetected); Influenza B, PCR Not Detected (NotDetected)
--- NOTE | 2021-09-30 14:54 | HMH.PNCARD ---
Subjective Date: 09/30/21 Time: 14:54 Principal diagnosis: Chest pain Interval history: Patient was seen in the office today. Note is as follows below: Urgent visit for chest pain Does have cp & pressure with activity & at rest as per HPI. SOB with activity Dizziness & lightheadedness when stands up, feels like could pass ou Denies swelling Denies numbness Denies fatigue CAD-Hx RAEANN 10/2018. CABG (2015)DAPT Plavix/ASA. HTN-BP is elevated today. Pt wt down 1 lb LDL goal is <55. LDL 53. Statin therapy. Managed by PCP. Tobacco abuse present Tobacco cessation advised and counseled. Hypertensive, tachycardic, active angina during office visit. Offered hospital admission, patient agrees. Offered wheelchair, patient declined. PLAN: Admit to Dr. Morales rule out TN. This document was scribed by me Brinda Lilly RN for Christiano Marin PA-C. Once blood pressure is under control then if patient continues to have chest pain will reconsider left heart catheterization. Exam Vital signs and Labs for Last 24 Hours: Temp Pulse Resp BP Pulse Ox 98.4 F 96 H 18 165/92 H 99 09/30/21 14:28 09/30/21 14:28 09/30/21 14:28 09/30/21 14:28 09/30/21 14:28 I & O for Last 24 hours: Intake & Output 09/28/21 09/29/21 09/30/21 10/01/21 11:59 11:59 11:59 11:59 Weight 156 lb 8 oz - Constitutional no acute distress - *Routine HEENT Exam Head: Present: normocephalic Eye: Present: EOMI, PERRL ENT: Present: mucous membranes moist - *Routine Neck Exam Present: supple. Absent: lymphadenopathy - *Routine Respiratory Exam Present: CTA bilaterally - *Routine Cardiovascular Exam Present: RRR - *Routine Abdominal Exam Present: soft, normoactive bowel sounds. Absent: tenderness - *Routine Extremities Exam Absent: cyanosis, clubbing, edema - *Routine Skin Exam Present: warm. Absent: rash - *Routine Neurological Exam Present: alert, oriented X3 Progress Note: A&P (1) COPD (chronic obstructive pulmonary disease) Status: Acute (2) Chest pain Status: Acute (3) CAD (coronary artery disease) of artery bypass graft Status: Chronic (4) Coronary artery disease Status: Chronic (5) HHD (hypertensive heart disease) Status: Chronic (6) HLD (hyperlipidemia) Status: Chronic (7) History of coronary artery bypass graft Status: Chronic (8) Tobacco use Status: Chronic Assessment and Plan for All Diagnoses:: 1. Admitted for chest pain with rule out TN. We will add nitroglycerin paste in addition to the patient's home meds of bisoprolol, lisinopril, aspirin and Plavix. 2. Once patient's blood pressure is controlled if she continues to have chest pain then will consider left heart catheterization.
--- NOTE | 2021-09-30 15:14 | P.CONPHA_ITS ---
[facility] Pharmacy VTE Monitoring - Patient Demographics Admission date: 09/30/21 Report Date: 09/30/21 Time: 15:14 Allergies/Adverse Reactions: Patient Allergies bupropion [From Wellbutrin] Allergy (Intermediate, Verified 09/30/21 13:37) Rash levofloxacin Allergy (Unknown, Verified 09/30/21 13:37) venlafaxine Allergy (Unknown, Verified 09/30/21 13:37) Height: 1.65 m Weight: 70.987 kg Patient Problems: Current Active Problems COPD (chronic obstructive pulmonary disease) (Acute) CAD (coronary artery disease) of artery bypass graft (Chronic) Chest pain (Acute) HHD (hypertensive heart disease) (Chronic) History of coronary artery bypass graft (Chronic) HLD (hyperlipidemia) (Chronic) Coronary artery disease (Chronic) Tobacco use (Chronic) - Prophylaxis VTE Prophylaxis Ordered?: Yes Types of VTE Prophylaxis: TEDS Knee High Location of Applied Device: Bilateral Lower Extremeties
[2021-09-30 15:45] LABS: Basophils # 0.1 K/mm3 (0-0.2); Basophils % 0.4 % (0.1-2.0); Eosinophils # 0.1 K/mm3 (0.0-0.4); Eosinophils % 0.8 % (0.1-12.0); Hematocrit 43.8 % (37.0-47.0); Hemoglobin 14.9 g/dL (12.2-16.2); Lymphocytes # 1.6 K/mm3 (0.7-4.5); Lymphocytes % 12.2 % (10-50); Mean Corpuscular HGB Conc 33.9 g/dL (31.8-35.4); Mean Corpuscular Hemoglobin 31.4 pg (27.0-31.2); Mean Corpuscular Volume 92.7 fl (81-99); Mean Platelet Volume 8.9 fl (7.4-10.4); Monocytes # 0.5 K/mm3 (0.1-1.0); Monocytes % 3.6 % (1.7-9.3); Neutrophils # 11.1 K/mm3 (1.8-7.8); Platelet Count 296 K/mm3 (142-424); Red Blood Count 4.73 M/mm3 (4.20-5.40); Red Cell Distribution Width 15.4 % (11.5-17.5); White Blood Count 13.4 K/mm3 (4.8-10.8)
[2021-09-30 16:00] VITALS: BP 158/86; PULSE 88; PULSE 90; RESP 16; TEMP 36.9; O2SAT 98
[2021-09-30 16:01] LABS: Chloride 97 mmol/L (98-107)
[2021-09-30 16:02] LABS: Potassium 5.6 mmoL/L (3.5-5.1); Sodium 127 mmol/L (136-145)
[2021-09-30 16:04] LABS: Alanine Aminotransferase 23 U/L (12-78); Albumin Level 4.1 g/dl (3.5-5.0); Albumin/Globulin Ratio 1.1 (1.1-1.8); Alkaline Phosphatase 145 U/L (38-126); Anion Gap 10.6 mEq/L (5-15); Aspartate Amino Transferase 43 U/L (14-36); Blood Urea Nitrogen 7 mg/dl (7-17); Carbon Dioxide 25 mmol/L (22.0-30.0); Cholesterol 226 mg/dl (140-200); Creatinine Clearance Estimated 134 mL/min (50-200); Estimated Glomerular Filt Rate 126 ml/min (>60); GFR (African American) 152 ML/MIN (>60); Globulin 3.8 g/dL (1.3-3.2); Total Protein,Serum 7.9 g/dl (6.3-8.2); Triglycerides 174 mg/dl (30-150); VLDL Cholesterol 35 mg/dL (0-40)
[2021-09-30 16:05] LABS: Calcium 8.1 mg/dl (8.4-10.2); Chol/HDL Ratio 3.2 (1-3.5); Glucose 88 mg/dl (74-100); HDL Cholesterol 71 mg/dl (40-60)
[2021-09-30 16:16] LABS: Direct LDL Cholesterol 112.01 mg/dL (100-129)
[2021-09-30 16:27] LABS: Troponin I < 0.01 ng/ml (0.00-0.034)
[2021-09-30 18:45] LABS: Troponin I < 0.01 ng/ml (0.00-0.034)
[2021-09-30 20:00] VITALS: BP 154/86; PULSE 70; PULSE 74; RESP 16; TEMP 36.8; O2SAT 94
--- NOTE | 2021-09-30 20:14 | HMH.HP ---
*Admission Date: 09/30/21 *Chief complaint: chest pain *History of present illness: this patient had episode of chest pain and was seen by card- was seen in the office today. Note is as follows below: Urgent visit for chest pain Does have cp & pressure with activity & at rest as per HPI. SOB with activity Dizziness & lightheadedness when stands up, feels like could pass out Denies swelling Denies numbness Denies fatigue CAD-Hx RAEANN 10/2018. CABG (2015)DAPT Plavix/ASA. HTN-BP is elevated today. Pt wt down 1 lb LDL goal is <55. LDL 53. Statin therapy. Managed by PCP. Tobacco abuse present Tobacco cessation advised and counseled. Hypertensive, tachycardic, active angina during office visit. Offered hospital admission, patient agrees. pt was admitted for card [facility] History I have reviewed the patient's past medical history: Yes Medical History: Reports:: Anxiety, Atrial Fibrillation, Congestive Heart Failure, Chronic Obstructive Pulmonary Disease (COPD), Coronary Artery Disease, Depression, Gastroesophageal Reflux Disease(GERD), Hyperlipidemia, Hypertension, Myocardial Infarction Denies:: Cancer, Diabetes Mellitus Type 1, Diabetes Mellitus Type 2, Internal Pacemaker, MRSA, Seizures *Have you ever received a pneumonia vaccine?: Yes *Have you received a flu vaccine this season?: Yes Other Medical History: Reports: Arthritis, Other Other Surgeries: Yes: Angioplasty, Bariatric Surgery, CABG, Cardiac Catheterization, Cardiac Surgery, Colon Resection, Coronary Stent, , Hysterectomy-Total, Other. No: Pacemaker Amputation: No Fractures: No - *Social History Last grade of school completed: High school graduate Smoking Status: Current every day smoker Tobacco Type: cigarettes # Packs/Day (cigarettes): 1 Alcohol Intake: never Substance Use Type: sedatives, opiates, former substance user *Occupational Status:: unemployed Housing: house Household Members: none *Travel in the last 8 weeks: None - Psychiatric History Pschychiatric History:: Reports:: Anxiety, Depression Family Hx:: Heart Attack, Hypertension Review of Systems - Review of Systems Review of systems:: pertinent systems reviewed and negative unless documented below - Constitutional Denies fever(s) - Eyes Denies change in vision - ENT Denies sore throat - *Cardiovascular Reports chest pain, Reports chest pain at rest - *Respiratory Reports shortness of breath, Denies cough - *Gastrointestinal Denies abdominal pain - *Genitourinary Denies blood in urine - *Musculoskeletal Denies joint pain - Integumentary/Breasts Denies rash - *Neurologic Denies seizure-like activity - Psychiatric Reports anxiety Meds Home Medications Medication Instructions Recorded Confirmed Type aspirin 81 mg tablet,delayed 81 mg PO DAILY 08/13/17 09/30/21 History release Clopidogrel Bisulfate [Plavix 75mg 75 mg PO DAILY 02/03/19 09/30/21 History Tab] atorvastatin 80 mg tablet 80 mg PO DAILY #90 tab 01/12/20 09/30/21 Rx budesonide-formoterol HFA 80 2 puff INHALATION BID #10.2 g 08/09/20 09/30/21 Rx mcg-4.5 mcg/actuation aerosol inhaler omeprazole 20 mg capsule,delayed 20 mg PO DAILY #90 cap 03/19/21 09/30/21 Rx release tizanidine 4 mg capsule 4 mg PO BID PRN #180 cap 03/19/21 09/30/21 Rx nitroglycerin 0.4 mg sublingual 0.4 mg SUBLINGUAL Q5MINP PRN #25 04/22/21 09/30/21 Rx tablet tab bisoprolol fumarate 10 mg tablet 10 mg PO BID #60 tab 07/31/21 09/30/21 Rx hydrocodone 7.5 mg-acetaminophen 1 tab PO QID PRN #120 tab 09/02/21 09/30/21 Rx 325 mg tablet Amitriptyline HCl 100 mg PO HS 09/30/21 09/30/21 History Buspirone HCl [Buspar 10mg 10 mg PO BID 09/30/21 09/30/21 History tablet] Gabapentin [Gabapentin 400mg Cap] 400 mg PO QID 09/30/21 09/30/21 History Quetiapine Fumarate 100 mg PO HS 09/30/21 09/30/21 History clonazePAM [Clonazepam] 0.5 mg PO TID 09/30/21 09/30/21 History lisinopriL [Lisinopril] 5 mg PO BID 09/30/2109/04
[2021-09-30 21:41] LABS: Troponin I < 0.01 ng/ml (0.00-0.034)
[2021-10-01] VITALS: BP 142/91; PULSE 70; RESP 16; TEMP 36.8; O2SAT 94
[2021-10-01 00:15] LABS: Troponin I < 0.01 ng/ml (0.00-0.034)
[2021-10-01 04:00] VITALS: BP 165/88; PULSE 60; PULSE 76; RESP 16; TEMP 36.4; O2SAT 94
[2021-10-01 05:53] VITALS: BMI 28.1
--- NOTE | 2021-10-01 07:23 | HMH.PHAINT ---
Home med rec complete
[2021-10-01 08:00] VITALS: BP 142/84; PULSE 64; RESP 16; TEMP 36.7; O2SAT 64; O2SAT 95
[2021-10-01 09:16] LABS: Chloride 99 mmol/L (98-107); Potassium 3.8 mmoL/L (3.5-5.1); Sodium 131 mmol/L (136-145)
[2021-10-01 09:18] LABS: Blood Urea Nitrogen 11 mg/dl (7-17); Creatinine Clearance Estimated 103 mL/min (50-200); Estimated Glomerular Filt Rate 85 ml/min (>60); GFR (African American) 103 ML/MIN (>60)
[2021-10-01 09:19] LABS: Anion Gap 9.8 mEq/L (5-15); Carbon Dioxide 26 mmol/L (22.0-30.0); Glucose 86 mg/dl (74-100)
[2021-10-01 10:16] VITALS: BMI 28.1
--- NOTE | 2021-10-01 10:40 | HMH.PNCARD ---
Subjective Date: 10/01/21 Time: 10:30 Principal diagnosis: Chest pain Interval history: This is a 61-year-old female who was admitted from cardiology office yesterday for hypertension, tachycardia and angina. The patient ruled out for an ME. Her blood pressure is under much better control today. After a long discussion with the patient she does report that she has not been taking her medications as prescribed. Her angina was most likely from her hypertension and tachycardia. Her angina has resolved with better blood pressure control. She denies any chest pain or pressure this morning. She denies any shortness of breath or edema. She denies any fever, chills, nausea, vomiting, diarrhea, PND or orthopnea. Exam Vital signs and Labs for Last 24 Hours: Temp Pulse Resp BP Pulse Ox 98.1 F 64 16 142/84 H 95 10/01/21 08:00 10/01/21 08:00 10/01/21 08:00 10/01/21 08:00 10/01/21 08:00 Laboratory Results - last 24 hr 09/30/21 14:28: SARS-CoV-2 (PCR) Not detected, Influenza A Untype (PCR) Not detected, Influenza Type B (PCR) Not detected 09/30/21 14:59: WBC 13.4 H, RBC 4.73, Hgb 14.9, Hct 43.8, MCV 92.7, MCH 31.4 H, MCHC 33.9, RDW 15.4, Plt Count 296, MPV 8.9, Neut % (Auto) 83.0 H, Lymph % (Auto) 12.2, [place] % (Auto) 3.6, Eos % (Auto) 0.8, Baso % (Auto) 0.4, Neut # (Auto) 11.1 H, Lymph # (Auto) 1.6, [place] # (Auto) 0.5, Eos # (Auto) 0.1, Baso # (Auto) 0.1 09/30/21 14:59: Sodium 127 L, Potassium 5.6 H, Chloride 97 L, Carbon Dioxide 25, Anion Gap 10.6, BUN 7, Creatinine 0.50 L, Estimated Creat Clear 134, Estimated GFR 126, Est GFR ( Amer) 152, Glucose 88, Calcium 8.1 L, Total Bilirubin 1.0, AST 43 H, ALT 23, Alkaline Phosphatase 145 H, Troponin I < 0.01, Total Protein 7.9, Albumin 4.1, Globulin 3.8 H, Albumin/Globulin Ratio 1.1, Triglycerides 174 H, Cholesterol 226 H, LDL Cholesterol Direct 112.01, VLDL Cholesterol 35, HDL Cholesterol 71 H, Cholesterol/HDL Ratio 3.2 09/30/21 17:50: Troponin I < 0.01 09/30/21 20:55: Troponin I < 0.01 09/30/21 23:48: Troponin I < 0.01 10/01/21 23:48: Sodium 131 L, Potassium 3.8 D, Chloride 99, Carbon Dioxide 26, Anion Gap 9.8, BUN 11 D, Creatinine 0.70 D, Estimated Creat Clear 103, Estimated GFR 85, Est GFR ( Amer) 103 D, Glucose 86, Calcium 8.0 L I & O for Last 24 hours: Intake & Output 09/28/21 09/29/21 09/30/21 10/01/21 23:59 23:59 23:59 23:59 Intake Total 240 / 240 480 / 480 Balance 240 / 240 480 / 480 Weight 156 lb 8 oz 168 lb 14.338 oz Narrative: Telemetry strip is sinus rhythm with a rate of 64. - Constitutional no acute distress, average body habitus - *Routine HEENT Exam Head: Present: normocephalic, atraumatic Eye: Present: EOMI, PERRL ENT: Present: mucous membranes moist - *Routine Neck Exam Present: supple, full ROM, normal carotid upstroke. Absent: JVD, carotid bruit, lymphadenopathy - *Routine Respiratory Exam Present: CTA bilaterally - *Routine Cardiovascular Exam Present: RRR, Normal S1, Normal S2. Absent: murmur - *Routine Abdominal Exam Present: soft, normoactive bowel sounds. Absent: tenderness, distended - *Routine Extremities Exam Present: full ROM, pulses intact, normal capillary refill. Absent: cyanosis, clubbing, edema - *Routine Skin Exam Present: intact, warm. Absent: erythema, rash - *Routine Neurological Exam Present: alert, oriented X3, CN II-XII intact. Absent: sensory deficit, motor deficit Progress Note: A&P (1) Chest pain Status: Resolved (2) CAD (coronary artery disease) of artery bypass graft Status: Chronic (3) HHD (hypertensive heart disease) Status: Chronic (4) HLD (hyperlipidemia) Status: Chronic (5) History of coronary artery bypass graft Status: Chronic (6) Tobacco use Status: Chronic (7) Hyponatremia Status: Acute (8) COPD (chronic obstructive pulmonary disease) Status: Acute Assessment and Plan for All Diagnoses:: Plan: 1. The patient was admitted from car
--- NOTE | 2021-10-01 10:42 | HMH.DCSUM ---
General - General Admission date:: 09/30/21 Discharge date: 10/01/21 HPI HPI: this patient had episode of chest pain and was seen by card- was seen in the office today. Note is as follows below: Urgent visit for chest pain Does have cp & pressure with activity & at rest as per HPI. SOB with activity Dizziness & lightheadedness when stands up, feels like could pass out Denies swelling Denies numbness Denies fatigue CAD-Hx RAEANN 10/2018. CABG (2015)DAPT Plavix/ASA. HTN-BP is elevated today. Pt wt down 1 lb LDL goal is <55. LDL 53. Statin therapy. Managed by PCP. Tobacco abuse present Tobacco cessation advised and counseled. Hypertensive, tachycardic, active angina during office visit. Offered hospital admission, patient agrees. pt was admitted for card [facility] Hospital Course Hospital Course: 61-year-old female patient admitted from the cardiology clinic for reports of chest pain. She does report chest pain chest pressure with activity and at rest during these episodes she also reports shortness of breath, dizziness and lightheadedness when standing up. She denies any swelling, numbness, or fatigue. Patient mated for further cardiac work-up 09/30/21 CXR: FINDINGS: A single view of the chest was obtained. The heart is normal in size. The patient is status post median sternotomy. There is persistent elevation of the left hemidiaphragm. There is bibasilar atelectasis. There is no pleural effusion. There is no pneumothorax. There is no acute osseous abnormality. IMPRESSION: Bibasilar atelectasis. Persistent elevation of left hemidiaphragm. Reviewed, Interpreted and Dictated by Buddy Kang III, MD Cardiology has seen and recommends: Plan: 1. The patient was admitted from cardiology clinic yesterday for hypertension, tachycardia and angina. The patient has ruled out for an GA. No plans for invasive left cardiac catheterization at this time. 2. Coronary artery disease is present. This is likely stable. 3. Her blood pressure is under much better control. However, we would like to see her blood pressure a little bit lower than in the 140s systolic. We will add hydrochlorothiazide 12.5 mg p.o. daily. 4. Her LDL goal is less than 55. Her LDL is 112. We will restart her Lipitor 80 mg p.o. nightly. 5. I have had a long discussion with the patient about being compliant with her medications. After a long discussion she states that she is probably not taking her medicines as prescribed. Her symptoms were most likely from her hypertension and tachycardia. The patient states that she will be compliant with her medications and we will give her med list prior to discharge home. 6. The patient would benefit from having a renal duplex. I did have this set up to have completed while she was inpatient but the patient states that she would like to have this done at another time. We will set this up for an outpatient basis. 7. The patient is stable for discharge home today from a cardiac standpoint. She will need to follow-up in cardiology clinic in 1 to 2 weeks on an outpatient basis. She will need to go home on the following cardiac medications: Aspirin 81 mg daily, Lipitor 80 mg daily, bisoprolol 10 mg p.o. twice daily, Plavix 75 mg daily, hydrochlorothiazide 12.5 mg daily and lisinopril 10 mg p.o. twice daily. 61-year-old female patient resting quietly in bed, she does report some squeezing chest pain during the night but is pain-free at the moment. Oxygen saturation 95% on room air discussed discharge home, she is in agreement with this. Long discussion regarding importance of taking medication per instruction and she verbalizes she will be at follow-up appointments. PLAN: 1. Discharge home today 2. Aspirin 81 mg daily, 3. Lipitor 80 mg daily, 4. bisoprolol 10 mg p.o. twice daily, 5. Plavix 75 mg daily, 6. hydrochlorothiazide 12.5 mg daily and 7. lisinopril 10 mg p.o. twice daily 8. F/U PCP 1 week
[2021-10-01 11:40] VITALS: BP 184/96; PULSE 65; RESP 16; TEMP 36.7; O2SAT 96
--- NOTE | 2021-10-01 13:13 | PC.NURSE ---
Patient stated she was still waiting on her family to pick her up for discharge. She stated family lives in [place].
== END 2021-10-01 13:23 | disposition home or self-care (01) ==
PROVIDERS: Nurse Practitioner Family; Physician Assistant; Admitting Provider Emergency Medicine; PCP Emergency Medicine; Visit Provider Emergency Medicine
DX: I25.118 Atherosclerotic heart disease of native coronary artery with other forms of angina pectoris (principal); I25.708 Atherosclerosis of coronary artery bypass graft(s), unspecified, with other forms of angina pectoris; E87.1 Hypo-osmolality and hyponatremia; I48.91 Unspecified atrial fibrillation; I11.0 Hypertensive heart disease with heart failure; I50.9 Heart failure, unspecified; F17.210 Nicotine dependence, cigarettes, uncomplicated; Z95.0 Presence of cardiac pacemaker; Z95.5 Presence of coronary angioplasty implant and graft; K21.9 Gastro-esophageal reflux disease without esophagitis; Z79.899 Other long term (current) drug therapy; Z79.01 Long term (current) use of anticoagulants; R07.9 Chest pain, unspecified; Z20.822 Contact with and (suspected) exposure to COVID-19
CPT/HCPCS: G0378; G0379; 36415; 71045; 80048; 80053; 80061; 84484; 85025; C9803; U0003; U0005

== ENCOUNTER → 2021-10-29 16:00 | Outpatient (CLI) | payer MEDICARE, MEDICAID, SELFPAY ==
[2021-10-29 18:15] LABS: Amphetamine/Metha Screen,Urine Negative ng/ml (<1000)
[2021-10-29 18:16] LABS: Barbiturates Screen,Urine Negative ng/ml (<200); Benzodiazepines Screen,Urine Negative ng/ml (<200)
[2021-10-29 18:17] LABS: Cannabinoid Screen,Urine Negative ng/ml (<50)
[2021-10-29 18:18] LABS: Cocaine Screen,Urine Negative ng/ml (<300); Methadone Screen,Urine Negative ng/ml (<300)
[2021-10-29 18:19] LABS: Opiate Screen,Urine Positive ng/ml (<300)
[2021-10-29 18:20] LABS: Phencyclidine Screen,Urine Negative ng/ml (<25)
== END ==
PROVIDERS: Visit Provider Emergency Medicine
DX: Z79.899 Other long term (current) drug therapy (principal)
CPT/HCPCS: 80305

== ENCOUNTER 2021-12-24 14:58 | Inpatient (IN) | payer MEDICARE, MEDICAID, SELFPAY ==
[2021-12-24 14:59] VITALS: BP 163/107; PULSE 107; RESP 18; TEMP 36.8; O2SAT 96; BMI 25.0
--- NOTE | 2021-12-24 15:05 | PC.NURSE ---
AAYUSH PEARSON at
--- NOTE | 2021-12-24 15:13 | HMH.EDABDPAI ---
ED Disposition Clinical Impression: Partial small bowel obstruction CAP (community acquired pneumonia) Qualifiers: Laterality: right Lung location: lower lobe of lung Qualified Code(s): J18.9 - Pneumonia, unspecified organism Disposition: Admitted As Inpatient Condition on Discharge: Good Referrals: Garrison Morales MD [Primary Care Provider] - - Critical Care Critical Care Time: No Attestation: On 12/24/21, the high probability of a clinically significant, sudden or life threatening deterioration of the following system(s) required my full and direct attention, intervention and personal management. The time I documented below is in addition to time spent performing reported procedures but includes the following listed in this critical care notation. Medical Decision Making - Medical Records Medical records reviewed: Yes: I reviewed the patient's medical records. - [place] Inquiry Pt receiving controlled substance: No Vital Signs: 12/24/21 14:59 12/24/21 16:57 12/24/21 17:31 Temperature 98.2 F Temperature Source Oral Pulse Rate 113 H 118 H Pulse Rate [Right Radial] 107 H Respiratory Rate 18 18 Blood Pressure 173/114 H 180/89 H Blood Pressure [Right Arm] 163/107 H Blood Pressure Mean 138 Blood Pressure Mean [Right Arm] 125 Blood Pressure Source [Right Arm] Automatic Cuff Blood Pressure Position [Right Arm] Sitting 02 Sat by Pulse Oximetry 96 99 96 Oxygen Delivery Method Room Air Room Air 12/24/21 18:00 Temperature Temperature Source Pulse Rate 118 H Pulse Rate [Right Radial] Respiratory Rate Blood Pressure 180/98 H Blood Pressure [Right Arm] Blood Pressure Mean Blood Pressure Mean [Right Arm] Blood Pressure Source [Right Arm] Blood Pressure Position [Right Arm] 02 Sat by Pulse Oximetry 98 Oxygen Delivery Method - Lab Data Lab Results 12/24/21 15:23: SARS-CoV-2 (PCR) Not detected, Influenza A Untype (PCR) Not detected, Influenza Type B (PCR) Not detected 12/24/21 16:44: WBC 13.9 H, RBC 5.50 H, Hgb 17.0 H, Hct 51.0 H, MCV 92.7, MCH 30.8, MCHC 33.2, RDW 15.3, Plt Count 416, MPV 8.5, Neut % (Auto) 87.0 H, Lymph % (Auto) 7.8 L, [place] % (Auto) 3.7, Eos % (Auto) 0.3, Baso % (Auto) 1.3, Neut # (Auto) 12.1 H, Lymph # (Auto) 1.1, [place] # (Auto) 0.5, Eos # (Auto) 0.0, Baso # (Auto) 0.2 12/24/21 16:44: Sodium 139, Potassium 4.2, Chloride 98, Carbon Dioxide 31 H, Anion Gap 14.2, BUN 18 H, Creatinine 1.00, Estimated Creat Clear 64, Estimated GFR 57 L, Est GFR ( Amer) 68, Glucose 137 H, Calcium 9.9, Total Bilirubin 0.5, AST 43 H, ALT 35, Alkaline Phosphatase 160 H, Troponin I < 0.01, Total Protein 8.2, Albumin 4.3, Globulin 3.9 H, Albumin/Globulin Ratio 1.1, Lipase 31 Result diagrams: 12/24/21 16:44 12/24/21 16:44 Orders (Tests/Meds): ED MEDICATIONS Generic Name Dose Route Start Last Admin Trade Name Freq PRN Reason Stop Dose Admin Ceftriaxone Sodium 1 gm/ 50 mls @ 100 mls/hr 12/24/21 18:45 Sodium Chloride IV 01/07/22 18:44 Q24H LUCY Azithromycin 500 mg/ Sodium 250 mls @ 250 mls/hr 12/24/21 18:45 Chloride IV 01/07/22 18:44 Q24H LUCY Discontinued Medications Generic Name Dose Route Start Last Admin Trade Name Freq PRN Reason Stop Dose Admin Sodium Chloride 1,000 mls @ 999 mls/hr 12/24/21 15:15 12/24/21 15:36 Sod Chlor 0.9% 1000ml Bag IV 12/24/21 16:15 999 mls/hr .Q1H1M LUCY Administration Metoclopramide HCl 10 mg 12/24/21 15:09 12/24/21 15:35 Metoclopramide Hcl 10mg/2ml Vial IVP 12/24/21 15:10 10 mg ONCE ONE Administration Morphine Sulfate 2 mg 12/24/21 15:09 12/24/21 15:35 Morphine 2mg/Ml Syringe IV 12/24/21 15:10 2 mg ONCE ONE Administration Morphine Sulfate 2 mg 12/24/21 18:15 12/24/21 18:17 Morphine 2mg/Ml Syringe IV 12/24/21 18:16 2 mg ONCE ONE Administration Ondansetron HCl 8 mg 12/24/21 15:09 12/24/21 15:35 Ondansetron 4mg/2ml Vial IV 12/24/21 15:10 8 mg ONCE ONE Adm
--- NOTE | 2021-12-24 15:26 | PC.NURSE ---
contacted lab for blood draw, was unable to obtain blood with IV start.
[2021-12-24 15:27] VITALS: BMI 25.0
--- NOTE | 2021-12-24 15:27 | PC.NURSE ---
pt given warm blanket
--- NOTE | 2021-12-24 15:28 | PC.NURSE ---
covid swab sent to lab
[2021-12-24 15:36] LABS: Coronavirus 19, PCR Not Detected (NotDetected); Influenza A, PCR Not Detected (NotDetected); Influenza B, PCR Not Detected (NotDetected)
--- NOTE | 2021-12-24 15:55 | PC.NURSE ---
lab was at [facility], was unsuccessful, states will send another staff member down to try to obtain blood.
--- NOTE | 2021-12-24 16:37 | ECG_ITS ---
APPROVED REPORT Exam: Resting ECG HR:113 bpm ECG Measurements Heart Rate 113 AXES NV 134 P 60 QRSd 94 QRS 42 QT 316 T 52 QTc 383 Conclusion SINUS TACHYCARDIA WITH OCCASIONAL VENTRICULAR PREMATURE COMPLEXES LEFT ATRIAL ENLARGEMENT [-0.15mV P-WAVE IN V1/V2] POSSIBLE RIGHT VENTRICULAR CONDUCTION DELAY [RSR (QR) IN V1/V2] MODERATE ST DEPRESSION [0.05+ mV ST DEPRESSION] ABNORMAL ECG UNCONFIRMED REPORT Electronically signed by : Rafi Levine MD 12/27/2021 10:33:25
[2021-12-24 16:57] VITALS: BP 173/114; PULSE 113; RESP 18; O2SAT 99
[2021-12-24 17:02] LABS: Basophils # 0.2 K/mm3 (0-0.2); Basophils % 1.3 % (0.1-2.0); Eosinophils % 0.3 % (0.1-12.0); Lymphocytes # 1.1 K/mm3 (0.7-4.5); Lymphocytes % 7.8 % (10-50); Mean Corpuscular HGB Conc 33.2 g/dL (31.8-35.4); Mean Corpuscular Hemoglobin 30.8 pg (27.0-31.2); Mean Corpuscular Volume 92.7 fl (81-99); Mean Platelet Volume 8.5 fl (7.4-10.4); Monocytes # 0.5 K/mm3 (0.1-1.0); Monocytes % 3.7 % (1.7-9.3); Neutrophils # 12.1 K/mm3 (1.8-7.8); Platelet Count 416 K/mm3 (142-424); Red Cell Distribution Width 15.3 % (11.5-17.5); White Blood Count 13.9 K/mm3 (4.8-10.8)
[2021-12-24 17:04] LABS: Alanine Aminotransferase 35 U/L (12-78); Albumin Level 4.3 g/dl (3.5-5.0); Albumin/Globulin Ratio 1.1 (1.1-1.8); Alkaline Phosphatase 160 U/L (38-126); Anion Gap 14.2 mEq/L (5-15); Aspartate Amino Transferase 43 U/L (14-36); Bilirubin,Total 0.5 mg/dl (0.2-1.3); Blood Urea Nitrogen 18 mg/dl (7-17); Calcium 9.9 mg/dl (8.4-10.2); Carbon Dioxide 31 mmol/L (22.0-30.0); Chloride 98 mmol/L (98-107); Creatinine Clearance Estimated 64 mL/min (50-200); Estimated Glomerular Filt Rate 57 ml/min (>60); GFR (African American) 68 ML/MIN (>60); Globulin 3.9 g/dL (1.3-3.2); Glucose 137 mg/dl (74-100); Lipase 31 U/L (23-300); MANUAL DIFFERENTIAL MANUAL DIFFERENTIAL (MANUAL DIFF); Potassium 4.2 mmoL/L (3.5-5.1); Sodium 139 mmol/L (136-145); Total Protein,Serum 8.2 g/dl (6.3-8.2)
[2021-12-24 17:21] LABS: Troponin I < 0.01 ng/ml (0.00-0.034)
[2021-12-24 17:31] VITALS: BP 180/89; PULSE 118; O2SAT 96
--- NOTE | 2021-12-24 17:37 | CT_ITS ---
PROCEDURE INFORMATION: Exam: CT Abdomen And Pelvis Without Contrast Exam date and time: 12/24/2021 5:42 PM Age: 61 years old Clinical indication: Abdominal pain; Epigastric; Additional info: Abd pain TECHNIQUE: Imaging protocol: Computed tomography of the abdomen and pelvis without contrast. Radiation optimization: All CT scans at this facility use at least one of these dose optimization techniques: automated exposure control; mA and/or kV adjustment per patient size (includes targeted exams where dose is matched to clinical indication); or iterative reconstruction. COMPARISON: CT ABDOMEN PELVIS W CON 10/15/2020 3:47 PM FINDINGS: Lungs: Atelectatic and/or early infiltrative changes noted within the left lung base. Heart: There is moderate atherosclerotic calcification of the coronary arteries. Liver: Normal. No mass. Gallbladder and bile ducts: Sludge is noted within the gallbladder. Pancreas: Normal. No ductal dilation. Spleen: Normal. No splenomegaly. Adrenal glands: Normal. No mass. Kidneys and ureters: Normal. No hydronephrosis. Stomach and bowel: Multiple fluid-filled loops of small bowel are present measuring up to 3.5 cm in diameter. There is abrupt narrowing of the small bowel present within the left lower quadrant. Findings may be consistent with developing small bowel obstruction. Area of narrowing of the small bowel is best seen on series 1001 images 25-27 and series 3 images 92-94. A large amount of stool is noted throughout the colon. Appendix: No evidence of appendicitis. Intraperitoneal space: Normal. No significant fluid collection. Vasculature: The vasculature demonstrates diffuse mild atherosclerotic calcification. Lymph nodes: Unremarkable. No enlarged lymph nodes. Urinary bladder: Unremarkable as visualized. Reproductive: Unremarkable as visualized. Bones/joints: The lumbar spine demonstrates mild degenerative changes at multiple levels. Soft tissues: Soft tissues are normal. Other findings: Lack of IV contrast limits the study as well as decreases sensitivity and specificity. IMPRESSION: 1. Multiple fluid-filled loops of small bowel are present measuring up to 3.5 cm in diameter. There is abrupt narrowing of the small bowel present within the left lower quadrant. Findings may be consistent with developing small bowel obstruction. 2. Atelectatic and/or early infiltrative changes noted within the left lung base. 3. Sludge is noted within the gallbladder. 4. A large amount of stool is noted throughout the colon.
--- NOTE | 2021-12-24 17:50 | PC.NURSE ---
pt to CT
--- NOTE | 2021-12-24 17:55 | PC.NURSE ---
pt returned from CT
[2021-12-24 18:00] VITALS: BP 180/98; PULSE 118; O2SAT 98
--- NOTE | 2021-12-24 18:27 | PC.NURSE ---
report given to ivett,rn
--- NOTE | 2021-12-24 18:31 | PC.NURSE ---
spoke with [facility]. Reports pneumonia and partial small bowel obstruction. Dr. Morales paged at this time
--- NOTE | 2021-12-24 18:33 | PC.NURSE ---
speaking with Dr. Morales and notified lab of blood culture order
--- NOTE | 2021-12-24 18:36 | PC.NURSE ---
Notified house of admission
--- NOTE | 2021-12-24 18:49 | PC.NURSE ---
184 bed assignment requested, room 203 all staff notified
--- NOTE | 2021-12-24 19:00 | PC.NURSE ---
pt provided with oral swabs and updated on POC, no new needs at this time. Advised pt we would be calling report shortly.
[2021-12-24 19:10] VITALS: BMI 26.2
[2021-12-24 19:17] LABS: Eosinophils % 1 % (0-3); Lymphocytes % 7 % (10-50); Monocytes % 4 % (2-9); Neutrophils % 88 % (42-76); Platelet Estimate Normal; Total Cells Counted 100
[2021-12-24 20:00] VITALS: BP 154/78; PULSE 114; RESP 16; TEMP 36.8; O2SAT 95
--- NOTE | 2021-12-24 20:08 | PC.NURSE ---
patient up to floor via wheelchair @ this time
[2021-12-24 20:12] VITALS: BP 174/91; PULSE 115; RESP 18; TEMP 36.8; O2SAT 98
[2021-12-25] VITALS (7 sets, daily range): BP systolic 124–157; BP diastolic 75–87; PULSE 83–112; RESP 16–17; TEMP 36.6–37.1; O2SAT 91–96; BMI 26.0
[2021-12-25 06:55] LABS: Basophils # 0.2 K/mm3 (0-0.2); Basophils % 1.4 % (0.1-2.0); Eosinophils # 0.2 K/mm3 (0.0-0.4); Eosinophils % 1.5 % (0.1-12.0); Hematocrit 44.7 % (37.0-47.0); Lymphocytes # 3.3 K/mm3 (0.7-4.5); Lymphocytes % 29.8 % (10-50); Mean Corpuscular Volume 93.8 fl (81-99); Mean Platelet Volume 8.6 fl (7.4-10.4); Monocytes # 0.7 K/mm3 (0.1-1.0); Monocytes % 6.6 % (1.7-9.3); Neutrophils # 6.6 K/mm3 (1.8-7.8); Neutrophils % 60.8 % (37.0-80.0); Platelet Count 362 K/mm3 (142-424); Red Blood Count 4.76 M/mm3 (4.20-5.40); Red Cell Distribution Width 15.5 % (11.5-17.5); White Blood Count 10.9 K/mm3 (4.8-10.8)
[2021-12-25 07:01] LABS: Hemoglobin 14.8 g/dL (12.2-16.2)
[2021-12-25 07:02] LABS: Anion Gap 11.7 mEq/L (5-15); Blood Urea Nitrogen 19 mg/dl (7-17); Calcium 8.8 mg/dl (8.4-10.2); Carbon Dioxide 26 mmol/L (22.0-30.0); Chloride 104 mmol/L (98-107); Creatinine Clearance Estimated 67 mL/min (50-200); Estimated Glomerular Filt Rate 57 ml/min (>60); GFR (African American) 68 ML/MIN (>60); Glucose 105 mg/dl (74-100); Potassium 3.7 mmoL/L (3.5-5.1); Sodium 138 mmol/L (136-145)
--- NOTE | 2021-12-25 07:09 | PC.NURSE ---
Discussed with patient about sbo and treatement options. Pt stated that she was curious of what they would do for it. Pt stated that she had bowel surgery as a child and wondered if that was the cause of her issues. Pt reported pain in her abd. several times and was given morphine which was effective. Pt npo since arrival and awaiting for the MD to discuss POC and the next step.
--- NOTE | 2021-12-25 07:33 | XR_ITS ---
PROCEDURE INFORMATION: Exam: XR Chest Exam date and time: 12/25/2021 12:05 PM Age: 61 years old Clinical indication: Shortness of breath; Prior surgery; Surgery type: Open heart; Additional info: SOB TECHNIQUE: Imaging protocol: XR of the chest. Views: 1 view. COMPARISON: CR XR CHEST PORTABLE 09/30/2021 3:37 PM FINDINGS: Tubes, catheters and devices: Again noted are sternal wires. Lungs: Small amount of airspace consolidation at the left lung base adjacent to the elevated hemidiaphragm, probably representing atelectasis. The remaining pulmonary parenchyma is clear. No other pulmonary infiltrate or consolidation. Pleural spaces: Unremarkable. No pleural effusion. No pneumothorax. Heart/Mediastinum: The cardiac silhouette is obscured but probably normal in size. Diaphragm: Elevation of the left hemidiaphragm again noted. This finding is probably reflective of diaphragmatic paralysis. Bones/joints: Unremarkable. IMPRESSION: No acute cardiopulmonary disease.
--- NOTE | 2021-12-25 07:48 | P.CONPHA_ITS ---
[facility] Pharmacy VTE Monitoring - Patient Demographics Admission date: 12/25/21 Report Date: 12/25/21 Time: 07:48 Allergies/Adverse Reactions: Patient Allergies bupropion [From Wellbutrin] Allergy (Intermediate, Verified 12/24/21 14:39) Rash levofloxacin Allergy (Unknown, Verified 12/24/21 14:39) venlafaxine Allergy (Unknown, Verified 12/24/21 14:39) Height: 1.65 m Weight: 71.214 kg Patient Problems: Current Active Problems Partial small bowel obstruction (Acute) Community acquired pneumonia (Acute) - VTE Risk Labs: VTE Related Lab Results Hgb 14.8 g/dL (12.2-16.2) D 12/25/21 06:20 Hct 44.7 % (37.0-47.0) 12/25/21 06:20 Plt Count 362 K/mm3 (142-424) 12/25/21 06:20 BUN 19 mg/dl (7-17) H 12/25/21 06:20 Creatinine 1.00 mg/dl (0.52-1.04) 12/25/21 06:20 Estimated Creat Clear 67 mL/min (50-200) 12/25/21 06:20 Was VTE Risk Assessment Performed: Yes VTE Score: 5 VTE Risk Level: Low Risk Clinical Trial Participant: No - Prophylaxis VTE Prophylaxis Ordered?: Yes Types of VTE Prophylaxis: TEDS Knee High
--- NOTE | 2021-12-25 08:08 | PC.NURSE ---
call office and spoke with viola about consult (general surgeon distribution driver Dr. Vidal)
--- NOTE | 2021-12-25 08:21 | HMH.GSCON ---
*Admission Date: 12/25/21 *Reason for consult:: Small bowel obstruction *History of present illness: This is a 61-year-old female seen in consultation of Dr. Morales for evaluation regarding small bowel obstruction. She presented to the emergency department with increasing abdominal pain. Please see HPI from emergency department evaluation forwarded below. She states that she had a somewhat firm bowel movement yesterday morning. She has not passed flatus or had a bowel movement since this time. She did have some intermittent nausea and vomiting but states that she is not really that nauseous now . She states that she has not thrown up for a while . Overall, she currently feels better than last night . She reports bowel surgery at the age of 9 . She states that she had too much colon . Forwarded from emergency department evaluation: Abdominal Pain HPI - General Stated Complaint: abd pain, vomiting Time Seen by Provider: 12/24/21 15:13 - History of Present Illness HPI narrative: generalized abd cramping n/v/d, chills, few days Onset (ago): day(s) Consistency: constant, intermittent Severity: moderate Quality: cramping Radiation: back Relieving factors: nothing Exacerbating factors: eating Associated symptoms: denies other symptoms Review of Systems - Constitutional Denies chills - ENT Denies difficulty swallowing - *Cardiovascular Denies chest pain - *Respiratory Denies cough - *Gastrointestinal Reports abdominal pain, Reports nausea, Reports vomiting - Hematologic/Lymphatic Denies easy bleeding HMH History Medical History: Reports:: Anxiety, Atrial Fibrillation, Congestive Heart Failure, Chronic Obstructive Pulmonary Disease (COPD), Coronary Artery Disease, Depression, Gastroesophageal Reflux Disease(GERD), Hyperlipidemia, Hypertension, Myocardial Infarction Denies:: Cancer, Diabetes Mellitus Type 1, Diabetes Mellitus Type 2, Internal Pacemaker, MRSA, Seizures *Have you ever received a pneumonia vaccine?: Yes *Have you received a flu vaccine this season?: Yes Other Medical History: Reports: Arthritis, Other Other Surgeries: Yes: Angioplasty, Bariatric Surgery, CABG, Cardiac Catheterization, Cardiac Surgery, Colon Resection, Coronary Stent, , Hysterectomy-Total, Other. No: Pacemaker Amputation: No Fractures: No - *Social History Smoking Status: Current every day smoker Tobacco Type: cigarettes # Packs/Day (cigarettes): 1 Alcohol Intake: never Substance Use Type: sedatives, opiates, former substance user *Occupational Status:: disabled Housing: house Household Members: none *Travel in the last 8 weeks: None - Psychiatric History Pschychiatric History:: Reports:: Anxiety, Depression Family Hx:: Cancer, Heart Attack, Hypertension Meds Home Medications Medication Instructions Recorded Confirmed Type aspirin 81 mg tablet,delayed 81 mg PO DAILY 08/13/17 12/25/21 History release Clopidogrel Bisulfate [Plavix 75mg 75 mg PO DAILY 02/03/19 12/25/21 History Tab] budesonide-formoterol HFA 80 2 puff INHALATION BID #10.2 g 08/09/20 12/25/21 Rx mcg-4.5 mcg/actuation aerosol inhaler tizanidine 4 mg capsule 4 mg PO BID PRN #180 cap 03/19/21 12/25/21 Rx nitroglycerin 0.4 mg sublingual 0.4 mg SUBLINGUAL Q5MINP PRN #25 04/22/21 12/25/21 Rx tablet tab amitriptyline 100 mg tablet 100 mg PO HS #30 tab 10/29/21 12/25/21 Rx buspirone 10 mg tablet 10 mg PO BID #60 tab 10/29/21 12/25/21 Rx lisinopril 20 mg tablet 20 mg PO BID 10/29/21 12/25/21 History metoprolol succinate 50 mg 50 mg PO DAILY 10/29/21 12/25/21 History tablet,extended release 24 hr clonazepam 0.5 mg tablet 0.5 mg PO TID #90 tab 12/24/21 12/25/21 Rx Atorvastatin Calcium [Lipitor 80mg 80 mg PO HS 12/25/21 12/25/21 History Tablet*] Gabapentin [Gabapentin 400mg
--- NOTE | 2021-12-25 09:00 | HMH.HP ---
*Admission Date: 12/25/21 *Chief complaint: abd pain *History of present illness: 61 yr old female presented to the emergency department with increasing abdominal pain, nausea and vomiting. Patient states that she had a somewhat firm bowel movement yesterday morning. She has not passed flatus or had a bowel movement since this time. Patient states she was unable to keep any food or liquids down and the pain kept increasing. Ct shows Findings may be consistent with developing small bowel obstruction and large amt retained stool. Patient was admitted for surgery consult. Patient reports a prior surgery to have part of her bowels removed when she was 9 yrs old. [facility] History I have reviewed the patient's past medical history: Yes Medical History: Reports:: Anxiety, Atrial Fibrillation, Congestive Heart Failure, Chronic Obstructive Pulmonary Disease (COPD), Coronary Artery Disease, Depression, Gastroesophageal Reflux Disease(GERD), Hyperlipidemia, Hypertension, Myocardial Infarction Denies:: Cancer, Diabetes Mellitus Type 1, Diabetes Mellitus Type 2, Internal Pacemaker, MRSA, Seizures *Have you ever received a pneumonia vaccine?: Yes *Have you received a flu vaccine this season?: Yes Other Medical History: Reports: Arthritis, Other Other Surgeries: Yes: Angioplasty, Bariatric Surgery, CABG, Cardiac Catheterization, Cardiac Surgery, Colon Resection, Coronary Stent, , Hysterectomy-Total, Other. No: Pacemaker Amputation: No Fractures: No - *Social History Smoking Status: Current every day smoker Tobacco Type: cigarettes # Packs/Day (cigarettes): 1 Alcohol Intake: never Substance Use Type: sedatives, opiates, former substance user *Occupational Status:: disabled Housing: house Household Members: none *Travel in the last 8 weeks: None - Psychiatric History Pschychiatric History:: Reports:: Anxiety, Depression Family Hx:: Cancer, Heart Attack, Hypertension Review of Systems - Review of Systems Review of systems:: pertinent systems reviewed and negative unless documented below - Constitutional Denies body ache(s), Denies fatigue, Denies weight gain - Eyes Denies blurry vision - ENT Denies bleeding gums - *Cardiovascular Denies chest pain at rest - *Respiratory Denies chest congestion - *Gastrointestinal Reports abdominal pain, Reports bloating, Reports change in bowel habits, Reports nausea, Reports vomiting - *Genitourinary Denies urinary urgency - *Musculoskeletal Denies joint pain - Integumentary/Breasts Denies bleeding lesions, Denies rash - *Neurologic Denies dizziness - Psychiatric Denies lack of enjoyment - Endocrine Denies excessive sweating - Hematologic/Lymphatic Denies easy bruising - Allergic/Immunologic Denies itchy eyes Meds Home Medications Medication Instructions Recorded Confirmed Type aspirin 81 mg tablet,delayed 81 mg PO DAILY 08/13/17 12/25/21 History release Clopidogrel Bisulfate [Plavix 75mg 75 mg PO DAILY 02/03/19 12/25/21 History Tab] budesonide-formoterol HFA 80 2 puff INHALATION BID #10.2 g 08/09/20 12/25/21 Rx mcg-4.5 mcg/actuation aerosol inhaler tizanidine 4 mg capsule 4 mg PO BID PRN #180 cap 03/19/21 12/25/21 Rx nitroglycerin 0.4 mg sublingual 0.4 mg SUBLINGUAL Q5MINP PRN #25 04/22/21 12/25/21 Rx tablet tab amitriptyline 100 mg tablet 100 mg PO HS #30 tab 10/29/21 12/25/21 Rx buspirone 10 mg tablet 10 mg PO BID #60 tab 10/29/21 12/25/21 Rx lisinopril 20 mg tablet 20 mg PO BID 10/29/21 12/25/21 History metoprolol succinate 50 mg 50 mg PO DAILY 10/29/21 12/25/21 History tablet,extended release 24 hr clonazepam 0.5 mg tablet 0.5 mg PO TID #90 tab 12/24/21 12/25/21 Rx Atorvastatin Calcium [Lipitor 80mg 80 mg PO HS 12/25/21 12/25/21 History Tablet*] Gabapentin [Gabapentin 400mg Cap] 400 mg PO QID 12/25/21 12/25/21 History Hydrocodone/Acetaminophen 1 tab PO QIDP PRN 12/25/21 12/25/21 History [Hydrocodone-Acetamin 7.5-325] [place]
--- NOTE | 2021-12-25 11:22 | PC.NURSE ---
Gave pt a cup to collect sputum. She stated that she doesn't feel like she will be able to do it just yet, but will try.
--- NOTE | 2021-12-25 20:07 | PC.NURSE ---
Pt had a very uneventful day. Nothing has change since previous assessment.
[2021-12-26] VITALS: BP 174/98; PULSE 83; RESP 16; TEMP 36.6; O2SAT 98
[2021-12-26 04:00] VITALS: BP 154/92; PULSE 84; RESP 16; TEMP 36.7; O2SAT 95
[2021-12-26 04:28] VITALS: BMI 26.6
--- NOTE | 2021-12-26 04:51 | PC.NURSE ---
pt has rested some through the night between pain medication administration, pt rates pain 8 on scale 1-10; pt states pain is somewhat worse after urination that radiates to back; active bowel sounds noted, pt states last bm was 2 days ago, denies passing any flatus, pt remains npo, vss, no other issues noted this shift
--- NOTE | 2021-12-26 07:10 | XR_ITS ---
FINAL REPORT CLINICAL HISTORY: Ileus versus partial small bowel obstruction COMPARISON: Chest radiograph dated December 25, [address] abdomen and pelvis dated December 24, 2021 FINDINGS: A PA view of the chest was obtained. There has been median sternotomy. The cardiac and mediastinal silhouettes are within normal limits. There is no change in the left basilar opacity or left pleural effusion. There is no free air beneath the diaphragm. Upright and supine views of the abdomen reveal little distal bowel gas. There are dilated small bowel loops which is more pronounced in the left abdomen. There are no pathologic calcifications. No acute osseous abnormalities identified. IMPRESSION: Findings favor small-bowel obstruction over ileus. Reviewed, Interpreted and Dictated by Diane Garsia MD Transcribed by Harriett Perez Authenticated by Diane Garsia MD on 12/26/2021 10:04:58 AM [facility]
--- NOTE | 2021-12-26 07:14 | HMH.GSPN ---
Subjective Narrative: She states that she has had no significant nausea and no emesis since prior to admission. She has yet to pass flatus. She does have some intermittent increased abdominal pain. Progress Note: A&P (1) Partial small bowel obstruction Status: Acute Assessment and plan: Abdomen remains soft. No increased nausea and no emesis for least 24 hours. Tenderness remains. Overall, her clinical picture remains equivocal. Flat/upright films ordered for this morning Continue NPO/IV fluids for now Exam Vital signs and Labs for Last 24 Hours: Temp Pulse Resp BP Pulse Ox 98.1 F 84 16 154/92 H 95 12/26/21 04:00 12/26/21 04:00 12/26/21 04:00 12/26/21 04:00 12/26/21 04:00 I & O for Last 24 hours: Intake & Output 12/23/21 12/24/21 12/25/21 12/26/21 11:59 11:59 11:59 11:59 Intake Total 1167 / 1167 1200 / 1200 Output Total 0 / 0 700 / 700 Balance 1167 / 1167 500 / 500 Weight 156 lb 8.451 oz 160 lb 1.6 oz - Constitutional no acute distress - *Routine Respiratory Exam Absent: respiratory distress - *Routine Cardiovascular Exam Absent: tachycardia - *Routine Abdominal Exam Present: soft. Absent: distended, rebound, guarding Comments: Her abdomen remains very soft. Her tenderness persists.
[2021-12-26 07:21] LABS: Basophils # 0.1 K/mm3 (0-0.2); Basophils % 1.5 % (0.1-2.0); Eosinophils # 0.2 K/mm3 (0.0-0.4); Eosinophils % 2.9 % (0.1-12.0); Hemoglobin 13.6 g/dL (12.2-16.2); Lymphocytes # 1.7 K/mm3 (0.7-4.5); Lymphocytes % 23.4 % (10-50); Mean Corpuscular HGB Conc 32.4 g/dL (31.8-35.4); Mean Corpuscular Hemoglobin 30.2 pg (27.0-31.2); Mean Corpuscular Volume 93.3 fl (81-99); Mean Platelet Volume 8.7 fl (7.4-10.4); Monocytes # 0.5 K/mm3 (0.1-1.0); Monocytes % 6.7 % (1.7-9.3); Neutrophils # 4.9 K/mm3 (1.8-7.8); Neutrophils % 65.6 % (37.0-80.0); Platelet Count 232 K/mm3 (142-424); Red Cell Distribution Width 15.3 % (11.5-17.5); White Blood Count 7.4 K/mm3 (4.8-10.8)
[2021-12-26 08:00] VITALS: BP 145/79; PULSE 89; RESP 16; TEMP 36.7; O2SAT 96
[2021-12-26 09:06] LABS: Anion Gap 10.9 mEq/L (5-15); Blood Urea Nitrogen 13 mg/dl (7-17); Calcium 8.2 mg/dl (8.4-10.2); Carbon Dioxide 21 mmol/L (22.0-30.0); Chloride 107 mmol/L (98-107); Creatinine Clearance Estimated 114 mL/min (50-200); Estimated Glomerular Filt Rate 102 ml/min (>60); GFR (African American) 123 ML/MIN (>60); Glucose 68 mg/dl (74-100); Potassium 3.9 mmoL/L (3.5-5.1); Sodium 135 mmol/L (136-145)
--- NOTE | 2021-12-26 09:07 | P.PN_ITS ---
Internal Medicine - PN: Subj *Date: 12/26/21 *Time: 09:13 Interval history: 61-year-old female patient sitting up in bed resting quietly with eyes closed, awakens to verbal stimuli. She reports less nausea today than yesterday, but abdominal area is photographer still. She has not passed flatus nor had bowel movement. She does complain of abdominal pain radiating from left side abdomen to back, flat/upright x-rays have been ordered. Exam Vital signs and Labs for Last 24 Hours: Temp Pulse Resp BP Pulse Ox 98.1 F 84 16 154/92 H 95 12/26/21 04:00 12/26/21 04:00 12/26/21 04:00 12/26/21 04:00 12/26/21 04:00 Laboratory Results - last 24 hr 12/26/21 06:55: WBC 7.4 D, RBC 4.50, Hgb 13.6, Hct 42.0, MCV 93.3, MCH 30.2, MCHC 32.4, RDW 15.3, Plt Count 232 D, MPV 8.7, Neut % (Auto) 65.6, Lymph % (Auto) 23.4, [place] % (Auto) 6.7, Eos % (Auto) 2.9, Baso % (Auto) 1.5, Neut # (Auto) 4.9, Lymph # (Auto) 1.7, [place] # (Auto) 0.5, Eos # (Auto) 0.2, Baso # (Auto) 0.1 I & O for Last 24 hours: Intake & Output 12/23/21 12/24/21 12/25/21 12/26/21 23:59 23:59 23:59 23:59 Intake Total 1167 / 1167 1200 / 1200 Output Total 0 / 0 700 / 700 Balance 1167 / 1167 500 / 500 Weight 157 lb 156 lb 8.451 oz 160 lb 1.6 oz - Constitutional no acute distress, chronically ill appearing - *Routine HEENT Exam Head: Present: normocephalic Eye: Present: EOMI ENT: Present: mucous membranes moist - *Routine Neck Exam Present: trachea midline. Absent: tracheal deviation - *Routine Respiratory Exam Present: CTA bilaterally. Absent: accessory muscle use - *Routine Cardiovascular Exam Present: RRR - *Routine Abdominal Exam Present: soft, normoactive bowel sounds, tenderness. Absent: guarding, firm - *Routine Extremities Exam Present: full ROM, normal capillary refill. Absent: cyanosis, clubbing - *Routine Skin Exam Present: intact, dry. Absent: cyanosis, erythema - *Routine Neurological Exam Present: alert, oriented X3. Absent: motor deficit - Routine Psychiatric Exam Present: normal affect, normal thought process. Absent: auditory hallucinations Assessment and Plan (1) Partial small bowel obstruction Status: Acute Category: Medical Code(s): K56.600 - Partial intestinal obstruction, unspecified as to cause - Assessment and plan all Dx Assessment and Plan for all problems:: Rounded with Dr. Mosley, all orders for Dr. Mosley: 1. Flat/upright x-rays 2. Continue n.p.o. 3. General surgery following
--- NOTE | 2021-12-26 09:23 | FL_ITS ---
FINAL REPORT TECHNIQUE: Gastrografin was administered through the patient's indwelling NG tube. Images were obtained intermittently until contrast reached colon. CLINICAL HISTORY: 19 hours small bowel follow through. FINDINGS: Images reveal dilated small bowel loops in the abdomen and left pelvis. No discrete transition point is identified. Contrast does not reach the colon until the 19 hour film. This is a very delayed transit time. There is some gas in the colon throughout the exam. IMPRESSION: Small bowel dilatation with delayed transit time. Exact transition point is not identified. Findings are concerning for a partial small bowel obstruction. Authenticated by Diane Garsia MD on 12/27/2021 09:35:16 AM [facility]
--- NOTE | 2021-12-26 10:42 | ECG_ITS ---
APPROVED REPORT Exam: Resting ECG HR:89 bpm ECG Measurements Heart Rate 89 AXES FL 130 P 60 QRSd 98 QRS 13 QT 359 T 41 QTc 405 Conclusion SINUS RHYTHM NORMAL ECG UNCONFIRMED REPORT Electronically signed by : Rafi Levine MD 12/27/2021 10:31:20
--- NOTE | 2021-12-26 10:51 | PC.NURSE ---
1035 - Pt reported to JEB Rajput that she was having intermittent chest pain. I went to assess patient and she told me she's been having occasional chest pain for several days. She says it feels like a pressure in the epigastric area, it doesn't radiate anywhere, she's not been diaphoretic and no vomiting. I obtained VS, BP 135/81, HR 89, O2 95% on RA, R 18. Stat EKG obtained and taken to ER MD to read immediately which he said was OK, Dr Vidal and Noel Gomez APRN notified. Noel stated he was going to talk to Dr Mosley to see if he wanted any other interventions ordered.
[2021-12-26 11:11] LABS: Microscopic, Urine URINE MICROSCOPIC (MICROSCOPIC)
[2021-12-26 11:44] LABS: Appearance,Urine CLEAR (Clear); Bilirubin,Urine Negative (Negative); Blood, Urine TRACE-I (Negative); Color,Urine YELLOW (Yellow); Glucose,Urine (UA) Negative (Negative); Ketones,Urine 1+ (Negative); Leukocyte Esterase,Urine 3+ (Negative); Nitrate,Urine Negative (Negative); PH,Urine 6.5 (5.0-8.5); Protein,Urine Negative (Negative); Specific Gravity, Urine 1.015 (1.005-1.030); Urobilinogen,Urine 0.2 EU/dl (0.2)
[2021-12-26 12:18] LABS: Bacteria,Urine 2+ /lpf; Squamous Epithelial Cell,Urine 20-50 #/hpf (0-5); WBC,Urine 20-50 #/hpf (0-3)
--- NOTE | 2021-12-26 13:46 | HMH.CNCARD ---
History of Present Illness Consult date: 12/26/21 Consult reason: chest pain Chief complaint: epigastric pain with nausea and vomiting, chest pain Additional Medical History:: Prior hx of CABG 2016 HTN HLD COPD 1 ppd GERD History of present illness: 61 year old female with past medical hx of CABG in 2015 with a medical management only cath in 08/23, htn, hld, and current 1 ppd smoker presented to ER on 12/24 with complaint of epigastic pain, nausea and vomiting, and decreased appetite over the past week. patient reported hard stools the week leading up to pain. CT abdomen and pelvis were concerning for developing SBO and showed a large amount of stool. Questionable pneumonia noted on chest xray. patient was admitted for surgery consult and treatment for CAP. currently has NG tube in place. Cardiology was asked to consult today for chest pain. Patient reports she has had intermittent burning in chest since abdominal pain started. Denies any associated soa. reports she thinks the pain is related to her stomach issues currently going on. upon assessment patient states she is pain free. [facility] History Medical History: Reports:: Anxiety, Atrial Fibrillation, Congestive Heart Failure, Chronic Obstructive Pulmonary Disease (COPD), Coronary Artery Disease, Depression, Gastroesophageal Reflux Disease(GERD), Hyperlipidemia, Hypertension, Myocardial Infarction Denies:: Cancer, Diabetes Mellitus Type 1, Diabetes Mellitus Type 2, Internal Pacemaker, MRSA, Seizures *Have you ever received a pneumonia vaccine?: Yes *Have you received a flu vaccine this season?: Yes Other Medical History: Reports: Arthritis, Other Other Surgeries: Yes: Angioplasty, Bariatric Surgery, CABG, Cardiac Catheterization, Cardiac Surgery, Colon Resection, Coronary Stent, , Hysterectomy-Total, Other. No: Pacemaker Amputation: No Fractures: No - *Social History Smoking Status: Current every day smoker Tobacco Type: cigarettes # Packs/Day (cigarettes): 1 Alcohol Intake: never Substance Use Type: sedatives, opiates, former substance user *Occupational Status:: disabled Housing: house Household Members: none *Travel in the last 8 weeks: None - Psychiatric History Pschychiatric History:: Reports:: Anxiety, Depression Family Hx:: Cancer, Heart Attack, Hypertension Meds Home Medications Medication Instructions Recorded Confirmed Type aspirin 81 mg tablet,delayed 81 mg PO DAILY 08/13/17 12/25/21 History release Clopidogrel Bisulfate [Plavix 75mg 75 mg PO DAILY 02/03/19 12/25/21 History Tab] tizanidine 4 mg capsule 4 mg PO BID PRN #180 cap 03/19/21 12/25/21 Rx amitriptyline 100 mg tablet 100 mg PO HS #30 tab 10/29/21 12/25/21 Rx buspirone 10 mg tablet 10 mg PO BID #60 tab 10/29/21 12/25/21 Rx lisinopril 20 mg tablet 20 mg PO BID 10/29/21 12/25/21 History metoprolol succinate 50 mg 50 mg PO DAILY 10/29/21 12/25/21 History tablet,extended release 24 hr clonazepam 0.5 mg tablet 0.5 mg PO TID #90 tab 12/24/21 12/25/21 Rx Atorvastatin Calcium [Lipitor 80mg 80 mg PO HS 12/25/21 12/25/21 History Tablet*] Gabapentin [Gabapentin 400mg Cap] 400 mg PO QID 12/25/21 12/25/21 History Hydrocodone/Acetaminophen 1 tab PO QIDP PRN 12/25/21 12/25/21 History [Hydrocodone-Acetamin 7.5-325] Pantoprazole Sodium [Protonix 40mg 40 mg PO HS 12/25/21 12/25/21 History tablet] Prazosin HCl [Minipress] 1 mg PO HS 12/25/21 12/25/21 History Budesonide/Formoterol Fumarate 2 puff IH BID 12/26/21 12/26/21 History [Budesonide-Formoterol 80-4.5] Nitroglycerin 0.4 mg SL Q5MINP PRN 12/26/21 12/26/21 History Allergies Allergy/AdvReac Type Severity Reaction Status Date / Time bupropion [From Wellbutrin] Allergy Intermediate Rash Verified 12/24/21 14:39 levofloxacin Allergy Unknown Verified 12/24/21 14:39 venlafaxine Allergy Unknown Verified 12/24/21 14:39 Exam Vital signs and Labs for Last 24 Hours: Temp Pulse Resp BP Pulse Ox 98.1 F 89 16
--- NOTE | 2021-12-26 14:08 | PC.NURSE ---
rounded on patient. no concerns noted. some complaints of nausea. patient had just returned from small bowel follow through. educated that hopefully once hooked back up to suction would find some more relief then. has been medicated per mar. primary nurse aware. also produced a urine and sample sent down to lab. no concerns about plan of care or medications.
[2021-12-26 15:54] VITALS: BP 157/81; PULSE 104; RESP 19; TEMP 37; O2SAT 94
--- NOTE | 2021-12-26 15:58 | PC.NURSE ---
Pt is alert and oriented x4. Abdomen is distended and tender to palpation. She has had 1 episode of vomiting but has reported nausea t/o the whole shift. Her NG is to continuous low wall suction. She has had about 1L of yellowish fluid out thus far. Morphine administered q2-3hrs for abdominal pain. She reports some relief on reassessment. She has denied any chest pain since previous report (see note). Bed is locked in lowest position, call light within reach.
[2021-12-26 20:00] VITALS: BP 152/85; PULSE 107; PULSE 108; RESP 20; TEMP 37; O2SAT 94
[2021-12-27] VITALS (23 sets, daily range): BP systolic 141–172; BP diastolic 54–98; PULSE 87–117; RESP 14–20; TEMP 36.6–43; O2SAT 93–100; BMI 24.4
--- NOTE | 2021-12-27 04:00 | PC.NURSE ---
pt has required morphine several times through the night for pain rated 8, abdominal pain and nausea occassionaly, and heartburn, ng to left nares intact to LWS, noted green colored gastric content, vss, urine gonzalo and cloudy, will continue to monitor.
--- NOTE | 2021-12-27 05:48 | PC.NURSE ---
PT IS OFF FLOOR VIA W/C WITH RADIOLOGY AT THIS TIME.
--- NOTE | 2021-12-27 05:52 | PC.NURSE ---
pt to radiology for films
--- NOTE | 2021-12-27 05:58 | PC.NURSE ---
PT BACK TO FLOOR @ THIS TIME.
--- NOTE | 2021-12-27 06:00 | XR_ITS ---
PROCEDURE INFORMATION: Exam: XR Complete Acute Abdomen Series Including Chest Exam date and time: 12/27/2021 5:43 AM Age: 61 years old Clinical indication: Condition or disease; Intestinal condition; Obstruction; Additional info: Profound ileus vs. Sbo TECHNIQUE: Imaging protocol: XR complete acute abdomen series, including 2 or more views of the abdomen and a single view chest. COMPARISON: CR XR ACUTE ABDOMEN SERIES 12/26/2021 1:53 PM FINDINGS: Lungs: Normal. No consolidation. Pleural spaces: Normal. No pleural effusions. No pneumothorax. Heart/Mediastinum: Hiatal hernia is present. Diaphragm: Elevation left hemidiaphragm is seen. Gastrointestinal tract: Some air-filled loops of small bowel are seen in the abdomen. Intraperitoneal space: Normal. No free air. Bones/joints: Patient is status post median sternotomy. Soft tissues: Normal. IMPRESSION: Left lower lobe atelectasis with diaphragmatic elevation. Air-filled loops of small bowel in the abdomen ileus versus small bowel obstruct
[2021-12-27 06:52] LABS: Basophils # 0.1 K/mm3 (0-0.2); Basophils % 1.1 % (0.1-2.0); Eosinophils # 0.2 K/mm3 (0.0-0.4); Eosinophils % 2.2 % (0.1-12.0); Hematocrit 40.4 % (37.0-47.0); Hemoglobin 13.7 g/dL (12.2-16.2); Lymphocytes # 1.7 K/mm3 (0.7-4.5); Mean Corpuscular Hemoglobin 31.7 pg (27.0-31.2); Mean Corpuscular Volume 93.3 fl (81-99); Mean Platelet Volume 8.5 fl (7.4-10.4); Monocytes # 0.5 K/mm3 (0.1-1.0); Monocytes % 6.3 % (1.7-9.3); Neutrophils # 5.8 K/mm3 (1.8-7.8); Neutrophils % 70.4 % (37.0-80.0); Platelet Count 288 K/mm3 (142-424); Red Blood Count 4.33 M/mm3 (4.20-5.40); Red Cell Distribution Width 14.9 % (11.5-17.5); White Blood Count 8.3 K/mm3 (4.8-10.8)
--- NOTE | 2021-12-27 07:17 | P.PN_ITS ---
Subjective Narrative: Patient is still not passing flatus. Nasogastric decompression continues for now. Her pain is essentially unchanged. Abdominal films this morning revealed persistent distention and air-fluid levels; however, there does appear to be increased air and some contrast within the colon. Progress Note: A&P (1) Partial small bowel obstruction Status: Acute (2) Chest pain Status: Acute Assessment and Plan for All Diagnoses:: Follow-up abdominal films show changes somewhat more consistent with profound ileus (persistent distention yet apparent increased air and some contrast within colon); however, she continues to show no clinical improvement and may in fact have a complex partial obstruction still requiring operative intervention. Tentatively, the plan is to schedule exploratory laparotomy for later today with follow-up films and serial exams in the interim. Exam Vital signs and Labs for Last 24 Hours: Temp Pulse Resp BP Pulse Ox 98.3 F 87 20 171/80 H 95 12/27/21 04:00 12/27/21 04:00 12/27/21 04:00 12/27/21 04:00 12/27/21 04:00 Laboratory Results - last 24 hr 12/26/21 06:55: WBC 7.4 D, RBC 4.50, Hgb 13.6, Hct 42.0, MCV 93.3, MCH 30.2, MCHC 32.4, RDW 15.3, Plt Count 232 D, MPV 8.7, Neut % (Auto) 65.6, Lymph % (Auto) 23.4, [place] % (Auto) 6.7, Eos % (Auto) 2.9, Baso % (Auto) 1.5, Neut # (Auto) 4.9, Lymph # (Auto) 1.7, [place] # (Auto) 0.5, Eos # (Auto) 0.2, Baso # (Auto) 0.1 12/26/21 06:55: Sodium 135 L, Potassium 3.9, Chloride 107, Carbon Dioxide 21 L, Anion Gap 10.9, BUN 13 D, Creatinine 0.60 D, Estimated Creat Clear 114, Estimated GFR 102, Est GFR ( Amer) 123 D, Glucose 68 L, Calcium 8.2 L 12/26/21 10:55: Urine Color Yellow, Urine Appearance Clear, Urine pH 6.5, Ur Specific [place] 1.015, Urine Protein Negative, Urine Glucose (UA) Negative, Urine Ketones 1+, Urine Blood Trace-i, Urine Nitrate Negative, Urine Bilirubin Negative, Urine Urobilinogen 0.2, Ur Leukocyte Esterase 3+ A, Urine RBC 3-5, Urine WBC 20-50, Ur Squamous Epith Cells 20-50, Urine Bacteria 2+ 12/27/21 06:40: WBC 8.3, RBC 4.33, Hgb 13.7, Hct 40.4, MCV 93.3, MCH 31.7 H, MCHC 34.0, RDW 14.9, Plt Count 288, MPV 8.5, Neut % (Auto) 70.4, Lymph % (Auto) 20.0, [place] % (Auto) 6.3, Eos % (Auto) 2.2, Baso % (Auto) 1.1, Neut # (Auto) 5.8, Lymph # (Auto) 1.7, [place] # (Auto) 0.5, Eos # (Auto) 0.2, Baso # (Auto) 0.1 I & O for Last 24 hours: Intake & Output 12/24/21 12/25/21 12/26/21 12/27/21 11:59 11:59 11:59 11:59 Intake Total 1167 / 1167 1200 / 1200 2026 / 2026 Output Total 350 / 350 700 / 700 2600 / 2600 Balance 817 / 817 500 / 500 -573 / -573 Weight 156 lb 8.451 oz 160 lb 1.6 oz 146 lb 12.8 oz Microbiology Reports for the Last 24 Hours: Microbiology 12/24/21 18:55 Blood Blood Culture - Preliminary NO GROWTH AFTER 48 HOURS 12/24/21 18:55 Blood Blood Culture - Preliminary NO GROWTH AFTER 48 HOURS - Constitutional no acute distress - *Routine Respiratory Exam Absent: respiratory distress - *Routine Cardiovascular Exam Absent: tachycardia - *Routine Abdominal Exam Present: soft, tenderness
[2021-12-27 07:32] LABS: Anion Gap 13.5 mEq/L (5-15); Blood Urea Nitrogen 11 mg/dl (7-17); Calcium 8.5 mg/dl (8.4-10.2); Carbon Dioxide 22 mmol/L (22.0-30.0); Chloride 105 mmol/L (98-107); Creatinine Clearance Estimated 126 mL/min (50-200); Estimated Glomerular Filt Rate 126 ml/min (>60); GFR (African American) 152 ML/MIN (>60); Glucose 68 mg/dl (74-100); Potassium 3.5 mmoL/L (3.5-5.1); Sodium 137 mmol/L (136-145)
--- NOTE | 2021-12-27 08:48 | HMH.ACPN2 ---
Internal Medicine - PN: Willie *Date: 12/27/21 *Time: 08:00 Interval history: pt with ng in place. Exam Vital signs and Labs for Last 24 Hours: Temp Pulse Resp BP Pulse Ox 98.2 F 91 H 18 145/88 H 95 12/27/21 08:00 12/27/21 08:00 12/27/21 08:00 12/27/21 08:00 12/27/21 08:00 Laboratory Results - last 24 hr 12/26/21 06:55: Sodium 135 L, Potassium 3.9, Chloride 107, Carbon Dioxide 21 L, Anion Gap 10.9, BUN 13 D, Creatinine 0.60 D, Estimated Creat Clear 114, Estimated GFR 102, Est GFR ( Amer) 123 D, Glucose 68 L, Calcium 8.2 L 12/26/21 10:55: Urine Color Yellow, Urine Appearance Clear, Urine pH 6.5, Ur Specific [place] 1.015, Urine Protein Negative, Urine Glucose (UA) Negative, Urine Ketones 1+, Urine Blood Trace-i, Urine Nitrate Negative, Urine Bilirubin Negative, Urine Urobilinogen 0.2, Ur Leukocyte Esterase 3+ A, Urine RBC 3-5, Urine WBC 20-50, Ur Squamous Epith Cells 20-50, Urine Bacteria 2+ 12/27/21 06:40: WBC 8.3, RBC 4.33, Hgb 13.7, Hct 40.4, MCV 93.3, MCH 31.7 H, MCHC 34.0, RDW 14.9, Plt Count 288, MPV 8.5, Neut % (Auto) 70.4, Lymph % (Auto) 20.0, [place] % (Auto) 6.3, Eos % (Auto) 2.2, Baso % (Auto) 1.1, Neut # (Auto) 5.8, Lymph # (Auto) 1.7, [place] # (Auto) 0.5, Eos # (Auto) 0.2, Baso # (Auto) 0.1 12/27/21 06:40: Sodium 137, Potassium 3.5, Chloride 105, Carbon Dioxide 22, Anion Gap 13.5, BUN 11, Creatinine 0.50 L, Estimated Creat Clear 126, Estimated GFR 126, Est GFR ( Amer) 152 D, Glucose 68 L, Calcium 8.5 I & O for Last 24 hours: Intake & Output 12/24/21 12/25/21 12/26/21 12/27/21 11:59 11:59 11:59 11:59 Intake Total 1167 / 1167 1200 / 1200 2026 Output Total 350 / 350 700 / 700 2600 / 2600 Balance 817 / 817 500 / 500 -573 / -573 Weight 156 lb 8.451 oz 160 lb 1.6 oz 146 lb 12.8 oz Microbiology Reports for the Last 24 Hours: Microbiology 12/24/21 18:55 Blood Blood Culture - Preliminary NO GROWTH AFTER 48 HOURS 12/24/21 18:55 Blood Blood Culture - Preliminary NO GROWTH AFTER 48 HOURS - Constitutional no acute distress - *Routine HEENT Exam Head: Present: normocephalic Eye: Present: PERRL ENT: Present: mucous membranes moist - *Routine Neck Exam Present: supple. Absent: lymphadenopathy - *Routine Respiratory Exam Present: CTA bilaterally - *Routine Cardiovascular Exam Present: RRR - *Routine Abdominal Exam Present: soft, normoactive bowel sounds, tenderness - *Routine Extremities Exam Absent: cyanosis, clubbing, edema - *Routine Skin Exam Present: warm. Absent: rash - *Routine Neurological Exam Present: alert, oriented X3 Assessment and Plan (1) Partial small bowel obstruction Status: Acute Category: Medical Code(s): K56.600 - Partial intestinal obstruction, unspecified as to cause (2) Chest pain Status: Acute Category: Medical Code(s): R07.9 - Chest pain, unspecified - Assessment and plan all Dx Assessment and Plan for all problems:: rounded with dr jay all orders per dr jay surgery to follow exp lap today
--- NOTE | 2021-12-27 12:00 | XR_ITS ---
FINAL REPORT CLINICAL HISTORY: Profound ileus versus obstruction COMPARISON: December 26, 2021 FINDINGS: A PA view of the chest was obtained. The cardiac and mediastinal silhouettes are within normal limits. There is been sternotomy. An NG tube is present with the tip likely in the stomach. There is elevation of the left hemidiaphragm. The lungs are hypoinflated. There are left greater than right basilar opacities that could represent atelectasis versus pneumonia. There are small pleural effusions. There is no free air beneath the diaphragm. Upright and supine views of the abdomen reveal dilatation of small-bowel loops. The dilatation is similar to the prior exam. Contrast is seen in the colon. There are no pathologic calcifications. No acute osseous abnormalities identified. IMPRESSION: Stable small bowel dilatation with contrast in the colon favors partial small bowel obstruction. Reviewed, Interpreted and Dictated by Diane Garsia MD Transcribed by Martinez Seth Authenticated by Diane Garsia MD on 12/27/2021 01:00:32 PM [facility]
--- NOTE | 2021-12-27 13:30 | HMH.ANESCL ---
[facility] Anesthesia Checklist - Structural Data Admitted From: Inpatient Planned Operative Procedure/s: explatory laparotomy Consent for Planned Operative Procedure(s) Verified: Yes - Airway Assessment C-Spine Mobility Assessed: Yes TMJ Mobility Assessed: Yes Dentition: Edentulous - Neurological Assessment Level of Consciousness: Awake, Alert, Appropriate - Anesthesia Plan Anesthesia Risk discussed: Yes Anesthesia Plan: Verified ASA Class: III Anesthesia Type: General [facility] History I have reviewed the patient's past medical history: Yes Medical History: Reports:: Anxiety, Atrial Fibrillation, Congestive Heart Failure, Chronic Obstructive Pulmonary Disease (COPD), Coronary Artery Disease, Depression, Gastroesophageal Reflux Disease(GERD), Hyperlipidemia, Hypertension, Myocardial Infarction Denies:: Cancer, Diabetes Mellitus Type 1, Diabetes Mellitus Type 2, Internal Pacemaker, MRSA, Seizures *Have you ever received a pneumonia vaccine?: Yes *Have you received a flu vaccine this season?: Yes Other Medical History: Reports: Arthritis, Other Anesthesia experience/problems:: none Other Surgeries: Yes: Angioplasty, Bariatric Surgery, CABG, Cardiac Catheterization, Cardiac Surgery, Colon Resection, Coronary Stent, , Hysterectomy-Total, Other. No: Pacemaker Amputation: No Fractures: No - *Social History Smoking Status: Current every day smoker Tobacco Type: cigarettes # Packs/Day (cigarettes): 1 Alcohol Intake: never Substance Use Type: sedatives, opiates, former substance user *Occupational Status:: disabled Housing: house Household Members: none *Travel in the last 8 weeks: None - Psychiatric History Pschychiatric History:: Reports:: Anxiety, Depression Family Hx:: Cancer, Heart Attack, Hypertension
--- NOTE | 2021-12-27 14:10 | PC.NURSE ---
Pt's ring is locked in the pt forensic materials engineer the room I verified with Meng COX.
--- NOTE | 2021-12-27 14:10 | PC.NURSE ---
Pt went down for surgery [id number]
--- NOTE | 2021-12-27 14:23 | P.PN_ITS ---
[facility] Anesthesia Checklist - Structural Data Admitted From: Inpatient Planned Operative Procedure/s: ex lap Consent for Planned Operative Procedure(s) Verified: Yes - Airway Assessment C-Spine Mobility Assessed: Yes TMJ Mobility Assessed: Yes Dentition: Edentulous - Neurological Assessment Level of Consciousness: Awake, Alert, Appropriate - Anesthesia Plan Anesthesia Risk discussed: Yes Anesthesia Plan: Verified ASA Class: III Anesthesia Type: General [facility] History I have reviewed the patient's past medical history: Yes Medical History: Reports:: Anxiety, Atrial Fibrillation, Congestive Heart Failure, Chronic Obstructive Pulmonary Disease (COPD), Coronary Artery Disease, Depression, Gastroesophageal Reflux Disease(GERD), Hyperlipidemia, Hypertension, Myocardial Infarction Denies:: Cancer, Diabetes Mellitus Type 1, Diabetes Mellitus Type 2, Internal Pacemaker, MRSA, Seizures *Have you ever received a pneumonia vaccine?: Yes *Have you received a flu vaccine this season?: Yes Other Medical History: Reports: Arthritis, Other Anesthesia experience/problems:: none Other Surgeries: Yes: Angioplasty, Bariatric Surgery, CABG, Cardiac Catheterization, Cardiac Surgery, Colon Resection, Coronary Stent, , Hysterectomy-Total, Other. No: Pacemaker Amputation: No Fractures: No - *Social History Smoking Status: Current every day smoker Tobacco Type: cigarettes # Packs/Day (cigarettes): 1 Alcohol Intake: never Substance Use Type: sedatives, opiates, former substance user *Occupational Status:: disabled Housing: house Household Members: none *Travel in the last 8 weeks: None - Psychiatric History Pschychiatric History:: Reports:: Anxiety, Depression Family Hx:: Cancer, Heart Attack, Hypertension
--- NOTE | 2021-12-27 16:49 | SUR.OPER ---
1518-300 ml's of sterile saline irrigated into pt's bladder via ulloa catheter per Dr. Lucas and Dr. Vidal's orders. okayed for pt's f/c to be hooked back up to drainge bag and to continue to monitor pt's urine output, clear/yellow urine noted to drainage bag after irrigating
[2021-12-27 17:23] LABS: Microscopic,Cath URINE MICROSCOPIC (MICROSCOPIC)
[2021-12-27 17:36] LABS: Appearance,Urine/Cath CLEAR (Clear); Bilirubin,Cath Negative (Negative); Blood, Urine/Cath Negative (Negative); Color,Urine/Cath YELLOW (Yellow); Glucose,Urine/Cath (UA) Negative (Negative); Ketones,Urine/Cath 3+ (Negative); Leukocyte Esterase,Cath Negative (Negative); Nitrate,Cath Negative (Negative); PH,Urine/Cath 6.5 (5.0-8.5); Protein,Urine/Cath Negative (Negative); Specific Gravity, Urine/Cath 1.025 (1.005-1.030); Urobilinogen,Cath 0.2 EU/dl (0.2)
--- NOTE | 2021-12-27 17:37 | PC.NURSE ---
Gave her mother her keys that she asked me to give her. Bee burgess clerk witnessed me giving to the mother in front of family friend Jasmin.
[2021-12-27 17:43] LABS: Bacteria,Urine/Cath TRACE /lpf
--- NOTE | 2021-12-27 18:20 | P.PN_ITS ---
[facility] Anesthesia Record Part I Intake, IV Amount: 3,000 Estimated blood loss (mL): 300 Urine output (mL): 900 Blood Pressure: 166/94 SaO2: 95 Pulse Rate: 103 Respiratory Rate: 16 Temperature: 98 F Patient is:: Drowsy, Stable Stable to PACU at:: 18:10
--- NOTE | 2021-12-27 18:30 | HMH.OPNOTE ---
Date of procedure: 12/27/21 Pre-op Diagnosis:: Small bowel obstruction Post-op Diagnosis:: Same Procedure performed:: Exploratory laparotomy with extensive lysis of adhesions and distal small bowel resection Surgeon:: Walter Vidal MD STADIUM ATTENDANT:: Mejia Ames Anesthesia: GETA Estimated blood loss (mL): 300 Operative findings:: Extensive adhesions throughout abdomen Multiple adhesions of omentum, small bowel, and colon extending from the deep pelvis to the upper quadrant (left greater than right) Transverse colonic anastomosis in the pelvis (prior surgery at age 9) No obvious ureteral or bladder injury (intraoperative consultation with Dr. Lucas of the urology service) Operative note:: After informed consent was obtained the patient was taken to the operating room and placed in the supine position. General anesthesia was induced and her abdomen was prepped and draped in a sterile fashion. A midline laparotomy incision was made in the upper abdomen. The abdomen was carefully entered. Multiple loops of dilated small bowel were immediately encountered. The midline incision was extended to below the umbilicus. Dense adhesions were noted throughout. Interloop adhesions, as well as adhesions of the omentum and colon were also confirmed. The omentum, small bowel, and colon were also very densely adhesed deep within the pelvis. A combination of blunt dissection, dissection with Metzenbaum scissors, and electrocautery was utilized to take down extensive adhesions throughout. Particularly dense adhesions were noted deep within the pelvis with extension to the left upper quadrant. Careful dissection along the right lateral sidewall freed the colonic attachments and the transverse colon was then tracked along the midline to a pelvic anastomosis (patient reported extensive colonic resection at age 9, as well as prior bladder injury). The severe adhesions in the pelvis in combination with the patient's prior history of bladder injury were considered. An intraoperative consultation with Dr. Lucas was completed. The bladder was filled with saline and careful inspection revealed no obvious bladder injury. Inspection of the ureters also revealed no obvious injury. The distal small bowel was elevated as dense adhesions were carefully taken down. The most distal portion of the small bowel was posterior to the transverse colon. This was the site of a particularly tight adhesive band that was deemed most responsible for the patient's small bowel obstruction. This region was somewhat ischemic and the decision was made to proceed with a resection. A linear stapling device was utilized to resect each margin of the ischemic small bowel. The intervening mesentery was taken with the Enseal device. Once freed, the small bowel was run from ligament of Treitz to the resection site at the terminal ileum. A small serosal rent in the mid small bowel was closed with interrupted 3-0 Nurolon. No other obvious injury or sign of ischemia noted. As small portion of the distal ileum (essentially the terminal ileum) remained, the decision was made to proceed with the hand-sewn anastomosis (in lieu of a partial colon resection). A 2 layer [id number] handsewn anastomosis was completed with interrupted 3-0 Nurolon and running 3-0 Vicryl. The abdomen was thoroughly irrigated. No active bleeding or other sign of injury was noted. Fascia was reapproximated with #2 Novafil and skin was then closed with sondra. Dressings were applied and the patient was transferred recovery in stable condition. Condition: stable Disposition: PACU Specimens:: Distal small bowel Complications:: No immediate
--- NOTE | 2021-12-27 19:15 | SUR.PHASEI ---
1844 detailed report called and given to Stu Saavedra RN 1899 transported via bed to med/surg room. vital signs stable. resting in bed comfortably. left in stable condition with Stu Saavedra med/dental surgery doctor at bedside.
--- NOTE | 2021-12-27 20:20 | PC.NURSE ---
Verified DRIED YE[employer] SUPERVISOR pump, and set up with Yina COX
[2021-12-27 21:14] LABS: Hematocrit 38.6 % (37.0-47.0); Hemoglobin 12.6 g/dL (12.2-16.2)
--- NOTE | 2021-12-27 22:29 | PC.NURSE ---
Pt receiving IV Morphine CARBURETOR REPAIRER pump in L FA IV. No other IV access. Pt is refusing to for staff to attempt IV insertion unless it is ultra sound guided due to pt being hard stick and multiple staff tried this morning. House notified. ER staff to attempt ultra sound guided IV insertion when possible.
[2021-12-28] VITALS (12 sets, daily range): BP systolic 137–186; BP diastolic 62–90; PULSE 88–109; RESP 15–20; TEMP 36.4–36.8; O2SAT 93–98; BMI 27.5
[2021-12-28 06:20] LABS: Basophils % 0.2 % (0.1-2.0); Hematocrit 34.9 % (37.0-47.0); Hemoglobin 11.7 g/dL (12.2-16.2); Lymphocytes # 0.7 K/mm3 (0.7-4.5); Lymphocytes % 5.4 % (10-50); Mean Corpuscular HGB Conc 33.4 g/dL (31.8-35.4); Mean Corpuscular Volume 92.8 fl (81-99); Mean Platelet Volume 8.8 fl (7.4-10.4); Monocytes # 1.2 K/mm3 (0.1-1.0); Monocytes % 8.8 % (1.7-9.3); Neutrophils # 11.7 K/mm3 (1.8-7.8); Neutrophils % 85.5 % (37.0-80.0); Platelet Count 300 K/mm3 (142-424); Red Blood Count 3.76 M/mm3 (4.20-5.40); Red Cell Distribution Width 15.3 % (11.5-17.5); White Blood Count 13.7 K/mm3 (4.8-10.8)
[2021-12-28 06:23] LABS: MANUAL DIFFERENTIAL MANUAL DIFFERENTIAL (MANUAL DIFF)
[2021-12-28 06:28] LABS: Anion Gap 10.8 mEq/L (5-15); Blood Urea Nitrogen 10 mg/dl (7-17); Calcium 7.8 mg/dl (8.4-10.2); Carbon Dioxide 21 mmol/L (22.0-30.0); Chloride 106 mmol/L (98-107); Creatinine Clearance Estimated 142 mL/min (50-200); Estimated Glomerular Filt Rate 126 ml/min (>60); GFR (African American) 152 ML/MIN (>60); Glucose 140 mg/dl (74-100); Potassium 3.8 mmoL/L (3.5-5.1); Sodium 134 mmol/L (136-145)
[2021-12-28 06:51] LABS: Lymphocytes % 11 % (10-50); Neutrophils % 80 % (42-76); Platelet Estimate Normal; RBC Morphology Normal; Total Cells Counted 100
--- NOTE | 2021-12-28 07:46 | P.PN_ITS ---
Internal Medicine - PN: Subj *Date: 12/28/21 *Time: 07:46 Exam Vital signs and Labs for Last 24 Hours: Temp Pulse Resp BP Pulse Ox 98.3 F 100 H 20 186/90 H 96 12/28/21 06:00 12/28/21 06:00 12/28/21 06:00 12/28/21 06:00 12/28/21 06:00 Laboratory Results - last 24 hr 12/27/21 14:00: Urine Color Yellow, Urine Appearance Clear, Urine pH 6.5, Ur Specific [place] 1.025, Urine Protein Negative, Urine Glucose (UA) Negative, Urine Ketones 3+, Urine Blood Negative, Urine Nitrate Negative, Urine Bilirubin Negative, Urine Urobilinogen 0.2, Ur Leukocyte Esterase Negative, Urine RBC None, Urine WBC 3-5, Ur Squamous Epith Cells None, Urine Bacteria Trace 12/27/21 21:09: Hgb 12.6, Hct 38.6 12/28/21 05:27: WBC 13.7 H D, RBC 3.76 L, Hgb 11.7 L, Hct 34.9 L, MCV 92.8, MCH 31.0, MCHC 33.4, RDW 15.3, Plt Count 300, MPV 8.8, Neut % (Auto) 85.5 H, Lymph % (Auto) 5.4 L, [place] % (Auto) 8.8, Eos % (Auto) 0.0 L, Baso % (Auto) 0.2, Neut # (Auto) 11.7 H, Lymph # (Auto) 0.7, [place] # (Auto) 1.2 H, Eos # (Auto) 0.0, Baso # (Auto) 0.0, Total Counted 100, Neutrophils % (Manual) 80 H, Band Neutrophils % 9.0 H, Lymphocytes % (Manual) 11, Platelet Estimate Normal, RBC Morphology Normal 12/28/21 05:27: Sodium 134 L, Potassium 3.8, Chloride 106, Carbon Dioxide 21 L, Anion Gap 10.8, BUN 10, Creatinine 0.50 L, Estimated Creat Clear 142, Estimated GFR 126, Est GFR ( Amer) 152, Glucose 140 H D, Calcium 7.8 L I & O for Last 24 hours: Intake & Output 12/25/21 12/26/21 12/27/21 12/28/21 23:59 23:59 23:59 23:59 Intake Total 1167 / 1167 1904 / 1904 4323 / 4323 298 / 298 Output Total 350 / 350 2600 / 2600 1000 / 1000 Balance 817 / 817 -696 / -696 3323 / 3323 298 / 298 Weight 71 kg 72.62 kg 66.587 kg 74.933 kg Microbiology Reports for the Last 24 Hours: Microbiology 12/26/21 10:55 Urine,Clean Catch Urine Culture - Preliminary NO GROWTH AFTER 24 HOURS Assessment and Plan (1) Partial small bowel obstruction Status: Acute Category: Medical Code(s): K56.600 - Partial intestinal obstruction, unspecified as to cause (2) Chest pain Status: Acute Category: Medical Code(s): R07.9 - Chest pain, unspecified The patient's infection will respond to the chosen ABx?: Yes Is the patient receiving the right drug, dose, and route?: Yes Could a more targeted ABx be ordered?: No
--- NOTE | 2021-12-28 08:44 | HMH.GSPN ---
Subjective Narrative: Postoperative pain Progress Note: A&P (1) Partial small bowel obstruction Status: Acute Assessment and plan: Stable status post oratory laparotomy with partial small bowel resection. Ambulate Keep Mckee catheter for now secondary to dense adhesions deep within the pelvis to include overlying the bladder (noted intraoperatively) (2) Chest pain Status: Acute Exam Vital signs and Labs for Last 24 Hours: Temp Pulse Resp BP Pulse Ox 98.3 F 100 H 20 186/90 H 96 12/28/21 06:00 12/28/21 06:00 12/28/21 06:00 12/28/21 06:00 12/28/21 06:00 Laboratory Results - last 24 hr 12/27/21 14:00: Urine Color Yellow, Urine Appearance Clear, Urine pH 6.5, Ur Specific [place] 1.025, Urine Protein Negative, Urine Glucose (UA) Negative, Urine Ketones 3+, Urine Blood Negative, Urine Nitrate Negative, Urine Bilirubin Negative, Urine Urobilinogen 0.2, Ur Leukocyte Esterase Negative, Urine RBC None, Urine WBC 3-5, Ur Squamous Epith Cells None, Urine Bacteria Trace 12/27/21 21:09: Hgb 12.6, Hct 38.6 12/28/21 05:27: WBC 13.7 H D, RBC 3.76 L, Hgb 11.7 L, Hct 34.9 L, MCV 92.8, MCH 31.0, MCHC 33.4, RDW 15.3, Plt Count 300, MPV 8.8, Neut % (Auto) 85.5 H, Lymph % (Auto) 5.4 L, [place] % (Auto) 8.8, Eos % (Auto) 0.0 L, Baso % (Auto) 0.2, Neut # (Auto) 11.7 H, Lymph # (Auto) 0.7, [place] # (Auto) 1.2 H, Eos # (Auto) 0.0, Baso # (Auto) 0.0, Total Counted 100, Neutrophils % (Manual) 80 H, Band Neutrophils % 9.0 H, Lymphocytes % (Manual) 11, Platelet Estimate Normal, RBC Morphology Normal 12/28/21 05:27: Sodium 134 L, Potassium 3.8, Chloride 106, Carbon Dioxide 21 L, Anion Gap 10.8, BUN 10, Creatinine 0.50 L, Estimated Creat Clear 142, Estimated GFR 126, Est GFR ( Amer) 152, Glucose 140 H D, Calcium 7.8 L I & O for Last 24 hours: Intake & Output 12/25/21 12/26/21 12/27/21 12/28/21 11:59 11:59 11:59 11:59 Intake Total 1167 / 1167 1200 / 1200 2026 3298 / 3298 Output Total 350 / 350 700 / 700 2900 / 2900 Balance 817 / 817 500 / 500 -873 / -873 3298 / 3298 Weight 156 lb 8.451 oz 160 lb 1.6 oz 146 lb 12.8 oz 165 lb 3.2 oz Microbiology Reports for the Last 24 Hours: Microbiology 12/26/21 10:55 Urine,Clean Catch Urine Culture - Preliminary - Constitutional no acute distress - *Routine Respiratory Exam Absent: respiratory distress - *Routine Cardiovascular Exam Comments: Mildly tachycardic - *Routine Abdominal Exam Comments: Dressing in place. No cellulitis.
--- NOTE | 2021-12-28 09:17 | HMH.ANESII ---
[facility] Anesthesia Record Part II Discharge Time: 19:00 Destination: Medical Surgical Department PACU nurse assessment reviewed?: Yes Patient Condition:: Good Anesthesia Complications:: None Swallowing reflex intact?: Yes Cyanosis?: No Blood Pressure: 160/85 Pulse Rate: 109 Temperature: 98 F Mental Status: Alert & Oriented Pain level:: 5 Nausea and/or vomitting:: None Intake, IV Amount: 0
--- NOTE | 2021-12-28 11:43 | HMH.ACPN2 ---
Internal Medicine - PN: Subj *Date: 12/28/21 *Time: 11:43 Interval history: uneventful night ng remains op note reviewed Exam Vital signs and Labs for Last 24 Hours: Temp Pulse Resp BP Pulse Ox 98 F 109 H 15 160/85 H 94 L 12/28/21 09:18 12/28/21 09:18 12/28/21 08:00 12/28/21 09:18 12/28/21 08:00 Laboratory Results - last 24 hr 12/27/21 14:00: Urine Color Yellow, Urine Appearance Clear, Urine pH 6.5, Ur Specific [place] 1.025, Urine Protein Negative, Urine Glucose (UA) Negative, Urine Ketones 3+, Urine Blood Negative, Urine Nitrate Negative, Urine Bilirubin Negative, Urine Urobilinogen 0.2, Ur Leukocyte Esterase Negative, Urine RBC None, Urine WBC 3-5, Ur Squamous Epith Cells None, Urine Bacteria Trace 12/27/21 21:09: Hgb 12.6, Hct 38.6 12/28/21 05:27: WBC 13.7 H D, RBC 3.76 L, Hgb 11.7 L, Hct 34.9 L, MCV 92.8, MCH 31.0, MCHC 33.4, RDW 15.3, Plt Count 300, MPV 8.8, Neut % (Auto) 85.5 H, Lymph % (Auto) 5.4 L, [place] % (Auto) 8.8, Eos % (Auto) 0.0 L, Baso % (Auto) 0.2, Neut # (Auto) 11.7 H, Lymph # (Auto) 0.7, [place] # (Auto) 1.2 H, Eos # (Auto) 0.0, Baso # (Auto) 0.0, Total Counted 100, Neutrophils % (Manual) 80 H, Band Neutrophils % 9.0 H, Lymphocytes % (Manual) 11, Platelet Estimate Normal, RBC Morphology Normal 12/28/21 05:27: Sodium 134 L, Potassium 3.8, Chloride 106, Carbon Dioxide 21 L, Anion Gap 10.8, BUN 10, Creatinine 0.50 L, Estimated Creat Clear 142, Estimated GFR 126, Est GFR ( Amer) 152, Glucose 140 H D, Calcium 7.8 L I & O for Last 24 hours: Intake & Output 12/25/21 12/26/21 12/27/21 05/28/22 23:59 23:59 23:59 23:59 Intake Total 1167 / 1167 1904 / 1904 4323 / 4323 298 / 298 Output Total 350 / 350 2600 / 2600 1000 / 1000 Balance 817 / 817 -696 / -696 3323 / 3323 298 / 298 Weight 156 lb 8.451 oz 160 lb 1.6 oz 146 lb 12.8 oz 165 lb 3.2 oz Microbiology Reports for the Last 24 Hours: Microbiology 12/26/21 10:55 Urine,Clean Catch Urine Culture - Preliminary - Constitutional no acute distress - *Routine HEENT Exam Head: Present: normocephalic Eye: Present: EOMI, PERRL ENT: Present: mucous membranes moist - *Routine Neck Exam Present: supple. Absent: lymphadenopathy - *Routine Respiratory Exam Present: CTA bilaterally - *Routine Cardiovascular Exam Present: RRR - *Routine Abdominal Exam Present: soft, tenderness. Absent: distended - *Routine Extremities Exam Absent: cyanosis, clubbing, edema - *Routine Skin Exam Present: warm. Absent: rash - *Routine Neurological Exam Present: alert, oriented X3 Assessment and Plan (1) Partial small bowel obstruction Status: Acute Category: Medical Code(s): K56.600 - Partial intestinal obstruction, unspecified as to cause (2) Chest pain Status: Acute Category: Medical Code(s): R07.9 - Chest pain, unspecified - Assessment and plan all Dx Assessment and Plan for all problems:: subtle bowel sounds evident following with surgery
[2021-12-28 14:28] LABS: Hematocrit 29.4 % (37.0-47.0)
[2021-12-28 14:49] LABS: Hemoglobin 9.8 g/dL (12.2-16.2)
--- NOTE | 2021-12-28 17:46 | PC.NURSE ---
Patient educated and instructed tpo use incentive spirometer throughout the day. VS stable and patient on 2LNC. Patient able to tolerate ambulating to chair and back and stated she felt better sitting upright in the chair. Drainage noted from NG tube.
--- NOTE | 2021-12-28 18:00 | PC.NURSE ---
STATE FARM AGENT pump cleared. 35.7 mg delivered.
[2021-12-28 21:23] LABS: Hematocrit 28.6 % (37.0-47.0); Hemoglobin 9.9 g/dL (12.2-16.2)
[2021-12-29] VITALS (11 sets, daily range): BP systolic 148–185; BP diastolic 84–99; PULSE 88–104; RESP 14–18; TEMP 36.6–37.1; O2SAT 90–96; BMI 27.6
--- NOTE | 2021-12-29 06:52 | PC.NURSE ---
PT HAD SOME C/O OF NAUSEA DURING MY SHIFT. MEDICATED PER OCT WITH FAVORABLE RESULTS. CLEARED PTS MOUNTER PUMP - 18 MG DELIVERED. NG TO L NARE INTACT, SECURED AT 60. NG DRAINING DARK GREEN CONTENTS. PT HAD 80MLS OUT PER NG TUBE. BOWEL SOUNDS PRESENT. URINE DRAINING PER GORDON CATH - WITH ADEQUATE URINE OUTPUT.
[2021-12-29 07:34] LABS: Anion Gap 10.4 mEq/L (5-15); Blood Urea Nitrogen 4 mg/dl (7-17); Calcium 7.9 mg/dl (8.4-10.2); Carbon Dioxide 24 mmol/L (22.0-30.0); Chloride 105 mmol/L (98-107); Creatinine Clearance Estimated 178 mL/min (50-200); Estimated Glomerular Filt Rate 163 ml/min (>60); GFR (African American) 197 ML/MIN (>60); Glucose 83 mg/dl (74-100); Potassium 3.4 mmoL/L (3.5-5.1); Sodium 136 mmol/L (136-145)
--- NOTE | 2021-12-29 07:52 | PC.NURSE ---
increased cub reporter dose to 1.5 per MD order for unrelieved pain. pt reported pain a 9/10
--- NOTE | 2021-12-29 08:49 | P.PN_ITS ---
Subjective Patient reports: no new complaints, still having pain, no flatus, no bowel movement Progress Note: A&P (1) Partial small bowel obstruction Status: Acute Assessment and plan: Postoperative day 2 status post exploratory laparotomy with extensive lysis of a dhesions and partial small bowel resection. Follow-up a.m. labs (per lab, morning CBC requires repeat draw) Remove Mckee Increase ambulation (2) Chest pain Status: Acute Exam Vital signs and Labs for Last 24 Hours: Temp Pulse Resp BP Pulse Ox 98.1 F 104 H 16 183/99 H 93 L 12/29/21 08:00 12/29/21 08:00 12/29/21 08:00 12/29/21 08:00 12/29/21 08:00 Laboratory Results - last 24 hr 12/28/21 14:17: Hgb 9.8 L D, Hct 29.4 L 12/28/21 21:15: Hgb 9.9 L, Hct 28.6 L 12/29/21 06:45: Sodium 136, Potassium 3.4 L, Chloride 105, Carbon Dioxide 24, Anion Gap 10.4, BUN 4 L D, Creatinine 0.40 L, Estimated Creat Clear 178, Estimated GFR 163, Est GFR ( Amer) 197 D, Glucose 83, Calcium 7.9 L I & O for Last 24 hours: Intake & Output 12/26/21 12/27/21 12/28/21 12/29/21 11:59 11:59 11:59 11:59 Intake Total 1200 / 1200 2027 / 2027 3298 / 3298 1800 / 1800 Output Total 700 / 700 2900 / 2900 4100 / 4100 Balance 500 / 500 -873 / -873 3298 / 3298 -2300 / -2300 Weight 160 lb 1.6 oz 146 lb 12.8 oz 165 lb 3.2 oz 166 lb 3.2 oz Microbiology Reports for the Last 24 Hours: Microbiology 12/26/21 10:55 Urine,Clean Catch Urine Culture - Preliminary - Constitutional no acute distress - *Routine Respiratory Exam Absent: respiratory distress - *Routine Cardiovascular Exam Comments: Mildly tachycardic
[2021-12-29 09:16] LABS: Basophils # 0.1 K/mm3 (0-0.2); Basophils % 0.8 % (0.1-2.0); Eosinophils # 0.2 K/mm3 (0.0-0.4); Eosinophils % 2.2 % (0.1-12.0); Hematocrit 32.1 % (37.0-47.0); Hemoglobin 10.7 g/dL (12.2-16.2); Lymphocytes # 1.4 K/mm3 (0.7-4.5); Lymphocytes % 17.8 % (10-50); Mean Corpuscular HGB Conc 33.3 g/dL (31.8-35.4); Mean Corpuscular Hemoglobin 30.9 pg (27.0-31.2); Mean Corpuscular Volume 92.8 fl (81-99); Mean Platelet Volume 8.3 fl (7.4-10.4); Monocytes # 0.4 K/mm3 (0.1-1.0); Monocytes % 4.5 % (1.7-9.3); Neutrophils # 6.1 K/mm3 (1.8-7.8); Neutrophils % 74.8 % (37.0-80.0); Platelet Count 278 K/mm3 (142-424); Red Blood Count 3.46 M/mm3 (4.20-5.40); Red Cell Distribution Width 15.2 % (11.5-17.5); White Blood Count 8.1 K/mm3 (4.8-10.8)
--- NOTE | 2021-12-29 10:36 | P.PN_ITS ---
Internal Medicine - PN: Subj *Date: 12/30/21 *Time: 10:03 Interval history: pt with surg and look better -surg note reviewed Exam Vital signs and Labs for Last 24 Hours: Temp Pulse Resp BP Pulse Ox 98.1 F 98 H 16 164/93 H 93 L 12/29/21 08:00 12/29/21 10:00 12/29/21 10:00 12/29/21 10:00 12/29/21 10:00 Laboratory Results - last 24 hr 12/28/21 14:17: Hgb 9.8 L D, Hct 29.4 L 12/28/21 21:15: Hgb 9.9 L, Hct 28.6 L 12/29/21 06:45: Sodium 136, Potassium 3.4 L, Chloride 105, Carbon Dioxide 24, Anion Gap 10.4, BUN 4 L D, Creatinine 0.40 L, Estimated Creat Clear 178, Estimated GFR 163, Est GFR ( Amer) 197 D, Glucose 83, Calcium 7.9 L 12/29/21 09:09: WBC 8.1 D, RBC 3.46 L, Hgb 10.7 L, Hct 32.1 L, MCV 92.8, MCH 30.9, MCHC 33.3, RDW 15.2, Plt Count 278, MPV 8.3, Neut % (Auto) 74.8, Lymph % (Auto) 17.8, [place] % (Auto) 4.5, Eos % (Auto) 2.2, Baso % (Auto) 0.8, Neut # (Auto) 6.1, Lymph # (Auto) 1.4, [place] # (Auto) 0.4, Eos # (Auto) 0.2, Baso # (Au to) 0.1 I & O for Last 24 hours: Intake & Output 12/26/21 12/27/21 12/28/21 12/29/21 11:59 11:59 11:59 11:59 Intake Total 1200 / 1200 2026 3298 / 3298 1800 / 1800 Output Total 700 / 700 2900 / 2900 4100 / 4100 Balance 500 / 500 -873 / -873 3298 / 3298 -2300 / -2300 Weight 160 lb 1.6 oz 146 lb 12.8 oz 165 lb 3.2 oz 166 lb 3.2 oz Microbiology Reports for the Last 24 Hours: Microbiology 12/26/21 10:55 Urine,Clean Catch Urine Culture - Final Multiple organisms, suggests contamination. - Constitutional no acute distress - *Routine HEENT Exam Head: Present: normocephalic Eye: Present: EOMI, PERRL ENT: Present: mucous membranes dry - *Routine Neck Exam Absent: JVD - *Routine Respiratory Exam Present: decreased breath sounds - *Routine Cardiovascular Exam Present: RRR - *Routine Abdominal Exam Present: soft, other (has ng tube ) - *Routine Extremities Exam Absent: calf tenderness - *Routine Skin Exam Present: intact - *Routine Neurological Exam Present: alert, CN II-XII intact - Routine Psychiatric Exam Present: normal affect Assessment and Plan (1) Partial small bowel obstruction Status: Acute Category: Medical Code(s): K56.600 - Partial intestinal obstruction, unspecified as to cause (2) Chest pain Status: Acute Category: Medical Code(s): R07.9 - Chest pain, unspecified
--- NOTE | 2021-12-29 18:35 | PC.NURSE ---
pt has been up and ambulated around her room. She has sat up in the chair through out the day and has tolerated it well. FC discontinued and she has urinated in the bathroom. Reports improved pain control.
--- NOTE | 2021-12-29 19:19 | PC.NURSE ---
pt had a lkiquid bm this evening. tolerated well.
[2021-12-30] VITALS (11 sets, daily range): BP systolic 152–191; BP diastolic 84–101; PULSE 88–104; RESP 16–20; TEMP 36.3–37.2; O2SAT 90–93; BMI 27.6
[2021-12-30 06:55] LABS: Basophils # 0.1 K/mm3 (0-0.2); Basophils % 0.9 % (0.1-2.0); Eosinophils # 0.3 K/mm3 (0.0-0.4); Eosinophils % 4.2 % (0.1-12.0); Hematocrit 30.3 % (37.0-47.0); Hemoglobin 10.1 g/dL (12.2-16.2); Lymphocytes # 1.2 K/mm3 (0.7-4.5); Lymphocytes % 19.4 % (10-50); Mean Corpuscular HGB Conc 33.2 g/dL (31.8-35.4); Mean Corpuscular Volume 93.4 fl (81-99); Mean Platelet Volume 8.7 fl (7.4-10.4); Monocytes # 0.4 K/mm3 (0.1-1.0); Monocytes % 5.8 % (1.7-9.3); Neutrophils # 4.5 K/mm3 (1.8-7.8); Neutrophils % 69.7 % (37.0-80.0); Platelet Count 288 K/mm3 (142-424); Red Blood Count 3.25 M/mm3 (4.20-5.40); Red Cell Distribution Width 15.2 % (11.5-17.5); White Blood Count 6.4 K/mm3 (4.8-10.8)
[2021-12-30 07:04] LABS: Anion Gap 11.7 mEq/L (5-15); Calcium 7.9 mg/dl (8.4-10.2); Carbon Dioxide 23 mmol/L (22.0-30.0); Chloride 103 mmol/L (98-107); Creatinine Clearance Estimated 178 mL/min (50-200); Estimated Glomerular Filt Rate 163 ml/min (>60); GFR (African American) 197 ML/MIN (>60); Glucose 84 mg/dl (74-100); Sodium 135 mmol/L (136-145)
[2021-12-30 07:15] LABS: Blood Urea Nitrogen < 2 mg/dl (7-17)
[2021-12-30 07:16] LABS: Potassium 2.7 mmoL/L (3.5-5.1)
--- NOTE | 2021-12-30 07:53 | PC.NURSE ---
LATE ENTRY - CLEARED 26.1 FROM WATCH ASSEMBLY INSTRUCTOR PUMP FOR MY SHIFT. PT STILL HAS NG TUBE SECURED AT 60 (L NARE) WITH CONTINUOUS LOW WALL SUCTION. DARK GREEN CONTENTS DRAINING FROM NG. BS PRESENT X 4. PT HAS HAD NO COMPLAINTS OF PAIN OR NAUSEA THIS SHIFT. PT HAS BEEN AMBULATING TO BATHROOM X 1 ASSIST WITH WALKER AND TOLERATING WELL. PT DID HAVE 1 LIQUIDY BM THIS SHIFT. PT IS EATING SOME ICE CHIPS AND TOLERATING WELL. CALL LIGHT IN REACH. NO OTHER NEEDS OR COMPLAINTS VOICED AT THIS TIME.
--- NOTE | 2021-12-30 08:00 | HMH.GSPN ---
Subjective Patient reports: bowel movement, diarrhea Narrative: Overall, the patient feels a little bit better this morning . She has had what she describes as on and off diarrhea . Progress Note: A&P (1) Partial small bowel obstruction Status: Acute Assessment and plan: Overall, doing fairly well status post exploratory laparotomy with partial small bowel resection. Continue to increase ambulation Nasogastric tube to drain bag (possibly remove later today) (2) Chest pain Status: Acute (3) Hypokalemia Status: Acute Assessment and plan: Replacement ordered. A small run of IV replacement ordered to be followed by replacement per tube (absorption likely hindered). Exam Vital signs and Labs for Last 24 Hours: Temp Pulse Resp BP Pulse Ox 98.3 F 90 16 168/88 H 93 L 12/30/21 03:39 12/30/21 03:39 12/30/21 03:39 12/30/21 03:39 12/30/21 03:39 Laboratory Results - last 24 hr 12/29/21 09:09: WBC 8.1 D, RBC 3.46 L, Hgb 10.7 L, Hct 32.1 L, MCV 92.8, MCH 30.9, MCHC 33.3, RDW 15.2, Plt Count 278, MPV 8.3, Neut % (Auto) 74.8, Lymph % (Auto) 17.8, [place] % (Auto) 4.5, Eos % (Auto) 2.2, Baso % (Auto) 0.8, Neut # (Auto) 6.1, Lymph # (Auto) 1.4, [place] # (Auto) 0.4, Eos # (Auto) 0.2, Baso # (Auto) 0.1 12/30/21 06:20: WBC 6.4, RBC 3.25 L, Hgb 10.1 L, Hct 30.3 L, MCV 93.4, MCH 31.0, MCHC 33.2, RDW 15.2, Plt Count 288, MPV 8.7, Neut % (Auto) 69.7, Lymph % (Auto) 19.4, [place] % (Auto) 5.8, Eos % (Auto) 4.2, Baso % (Auto) 0.9, Neut # (Auto) 4.5, Lymph # (Auto) 1.2, [place] # (Auto) 0.4, Eos # (Auto) 0.3, Baso # (Auto) 0.1 12/30/21 06:20: Sodium 135 L, Potassium 2.7 L* D, Chloride 103, Carbon Dioxide 23, Anion Gap 11.7, BUN < 2 L D, Creatinine 0.40 L, Estimated Creat Clear 178, Estimated GFR 163, Est GFR ( Amer) 197, Glucose 84, Calcium 7.9 L I & O for Last 24 hours: Intake & Output 12/27/21 12/28/21 12/29/21 12/30/21 11:59 11:59 11:59 11:59 Intake Total 2026 3298 / 3298 1800 / 1800 1800 / 1800 Output Total 2900 / 2900 5150 / 5150 1070 / 1070 Balance -873 / -873 3298 / 3298 -3350 / -3350 730 / 730 Weight 146 lb 12.8 oz 165 lb 3.2 oz 166 lb 3.2 oz 166 lb 1.6 oz Microbiology Reports for the Last 24 Hours: Microbiology 12/24/21 18:55 Blood Blood Culture - Final NO GROWTH AFTER 5 DAYS 12/24/21 18:55 Blood Blood Culture - Final NO GROWTH AFTER 5 DAYS 12/26/21 10:55 Urine,Clean Catch Urine Culture - Final Multiple organisms, suggests contamination. - Constitutional no acute distress - *Routine Respiratory Exam Absent: respiratory distress - *Routine Cardiovascular Exam Present: RRR - *Routine Abdominal Exam Comments: Incision healing without sign of infection. Postoperative tenderness.
--- NOTE | 2021-12-30 08:37 | INFXCTL.NOTE ---
CRITICAL K+ RECEIVED DURING CHANGE OF SHIFT. DAY SHIFT RN STATES SHE WILL REPORT VALUE TO MD.
--- NOTE | 2021-12-30 09:12 | PC.NURSE ---
7247 CLEARED FROM IV PUMP AT THIS TIME
--- NOTE | 2021-12-30 10:05 | HMH.ACPN2 ---
Internal Medicine - PN: Subj *Date: 12/30/21 *Time: 10:05 Interval history: doing better - surg note reviewed and labs reviewed with low k Exam Vital signs and Labs for Last 24 Hours: Temp Pulse Resp BP Pulse Ox 98.8 F 99 H 17 168/94 H 90 L 12/30/21 08:00 12/30/21 08:00 12/30/21 08:00 12/30/21 08:00 12/30/21 08:00 Laboratory Results - last 24 hr 12/30/21 06:20: WBC 6.4, RBC 3.25 L, Hgb 10.1 L, Hct 30.3 L, MCV 93.4, MCH 31.0, MCHC 33.2, RDW 15.2, Plt Count 288, MPV 8.7, Neut % (Auto) 69.7, Lymph % (Auto) 19.4, [place] % (Auto) 5.8, Eos % (Auto) 4.2, Baso % (Auto) 0.9, Neut # (Auto) 4.5, Lymph # (Auto) 1.2, [place] # (Auto) 0.4, Eos # (Auto) 0.3, Baso # (Auto) 0.1 12/30/21 06:20: Sodium 135 L, Potassium 2.7 L* D, Chloride 103, Carbon Dioxide 23, Anion Gap 11.7, BUN < 2 L D, Creatinine 0.40 L, Estimated Creat Clear 178, Estimated GFR 163, Est GFR ( Amer) 197, Glucose 84, Calcium 7.9 L I & O for Last 24 hours: Intake & Output 12/27/21 12/28/21 12/29/21 12/30/21 11:59 11:59 11:59 11:59 Intake Total 2026 3298 / 3298 1800 / 1800 1800 / 1800 Output Total 2900 / 2900 5150 / 5150 1070 / 1070 Balance -873 / -873 3298 / 3298 -3350 / -3350 730 / 730 Weight 146 lb 12.8 oz 165 lb 3.2 oz 166 lb 3.2 oz 166 lb 1.6 oz Microbiology Reports for the Last 24 Hours: Microbiology 12/24/21 18:55 Blood Blood Culture - Final NO GROWTH AFTER 5 DAYS 12/24/21 18:55 Blood Blood Culture - Final NO GROWTH AFTER 5 DAYS 12/26/21 10:55 Urine,Clean Catch Urine Culture - Final Multiple organisms, suggests contamination. - Constitutional no acute distress - *Routine HEENT Exam Head: Present: normocephalic Eye: Present: EOMI, PERRL ENT: Present: mucous membranes dry - *Routine Neck Exam Absent: JVD - *Routine Respiratory Exam Present: decreased breath sounds - *Routine Cardiovascular Exam Present: RRR - *Routine Abdominal Exam Present: soft, other (has ng tube ) - *Routine Extremities Exam Absent: calf tenderness - *Routine Skin Exam Present: intact - *Routine Neurological Exam Present: alert, CN II-XII intact - Routine Psychiatric Exam Present: normal affect Assessment and Plan (1) Partial small bowel obstruction Status: Acute Category: Medical Code(s): K56.600 - Partial intestinal obstruction, unspecified as to cause (2) Chest pain Status: Acute Category: Medical Code(s): R07.9 - Chest pain, unspecified (3) Hypokalemia Status: Acute Category: Medical Code(s): E87.6 - Hypokalemia (4) Neuropathy Status: Chronic Category: Medical Code(s): G62.9 - Polyneuropathy, unspecified (5) Tobacco use Status: Chronic Category: Social Hx Code(s): Z72.0 - Tobacco use
--- NOTE | 2021-12-30 12:07 | DIET.NUTRFU ---
Patient continues NPO since procedure on 12/24. She indicates she feels better today, NG tube in place for drainage possible removal later today. Patient continues to receive NaCl bolus fluid and KCL d/t low potassium of 2.7. Diet upgrade to clear liquids when medically feasible.
--- NOTE | 2021-12-30 17:48 | PC.NURSE ---
32.2 mls cleared from director of instructional technology pump
--- NOTE | 2021-12-30 17:59 | PC.NURSE ---
NG removed this evening. Residuals were < 50mls at each check and pt has denied nausea t/o the shift. She ambulated to bathroom multiple times with assist x1. She was up to the chair for a few hours and tolerated well. BP has been elevated. Midline incision is open to air. No s/s of infection noted. 1 loose bm reported this shift. Bed is locked and in the lowest position, call light within reach.
[2021-12-31] VITALS (8 sets, daily range): BP systolic 132–167; BP diastolic 62–99; PULSE 83–110; RESP 17–21; TEMP 36.5–37.1; O2SAT 93–97; BMI 27.3
--- NOTE | 2021-12-31 04:00 | PC.NURSE ---
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
--- NOTE | 2021-12-31 06:04 | PC.NURSE ---
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
--- NOTE | 2021-12-31 07:17 | HMH.GSPN ---
Subjective Patient reports: no new complaints, bowel movement Progress Note: A&P (1) Partial small bowel obstruction Status: Acute Assessment and plan: Continuing to slowly improve with regard to bowel function status post exploratory laparotomy with extensive lysis of adhesions and partial small bowel resection. Clear liquid diet DC COMMERCIAL CREDIT OFFICER [place] ordered PRN morphine ordered (2) Chest pain Status: Acute (3) Hypokalemia Status: Acute (4) Neuropathy Status: Chronic (5) Tobacco use Status: Chronic Exam Vital signs and Labs for Last 24 Hours: Temp Pulse Resp BP Pulse Ox 98.7 F 110 H 18 162/79 H 95 12/31/21 04:00 12/31/21 04:00 12/31/21 04:00 12/31/21 04:00 12/31/21 04:00 Laboratory Results - last 24 hr 12/30/21 06:20: Sodium 135 L, Potassium 2.7 L* D, Chloride 103, Carbon Dioxide 23, Anion Gap 11.7, BUN < 2 L D, Creatinine 0.40 L, Estimated Creat Clear 178, Estimated GFR 163, Est GFR ( Amer) 197, Glucose 84, Calcium 7.9 L I & O for Last 24 hours: Intake & Output 12/28/21 12/29/21 12/30/21 12/31/21 11:59 11:59 11:59 11:59 Intake Total 3298 / 3298 1800 / 1800 1800 / 1800 2190 / 2190 Output Total 5150 / 5150 1070 / 1070 182 / 182 Balance 3298 / 3298 -3350 / -3350 730 / 730 2007 Weight 165 lb 3.2 oz 166 lb 3.2 oz 166 lb 1.6 oz 163 lb 12.8 oz - Constitutional no acute distress - *Routine Respiratory Exam Absent: respiratory distress - *Routine Cardiovascular Exam Present: tachycardia - *Routine Abdominal Exam Present: soft, tenderness Comments: No incisional erythema
[2021-12-31 07:23] LABS: Basophils # 0.1 K/mm3 (0-0.2); Eosinophils # 0.2 K/mm3 (0.0-0.4); Eosinophils % 3.1 % (0.1-12.0); Hematocrit 29.5 % (37.0-47.0); Lymphocytes % 18.3 % (10-50); Mean Corpuscular Hemoglobin 30.9 pg (27.0-31.2); Mean Corpuscular Volume 90.9 fl (81-99); Mean Platelet Volume 9.5 fl (7.4-10.4); Monocytes # 0.4 K/mm3 (0.1-1.0); Monocytes % 7.2 % (1.7-9.3); Neutrophils % 70.5 % (37.0-80.0); Platelet Count 343 K/mm3 (142-424); Red Blood Count 3.24 M/mm3 (4.20-5.40); Red Cell Distribution Width 15.1 % (11.5-17.5); White Blood Count 5.7 K/mm3 (4.8-10.8)
[2021-12-31 07:33] LABS: Calcium 8.1 mg/dl (8.4-10.2); Carbon Dioxide 21 mmol/L (22.0-30.0); Chloride 103 mmol/L (98-107); Creatinine Clearance Estimated 140 mL/min (50-200); Estimated Glomerular Filt Rate 126 ml/min (>60); GFR (African American) 152 ML/MIN (>60); Glucose 90 mg/dl (74-100); Sodium 136 mmol/L (136-145)
[2021-12-31 07:43] LABS: Blood Urea Nitrogen < 2 mg/dl (7-17)
--- NOTE | 2021-12-31 08:48 | P.PN_ITS ---
Internal Medicine - PN: Subj *Date: 12/31/21 *Time: 09:18 Interval history: 61-year-old female patient sitting up in chair, reports tolerating a liquid breakfast without any nausea/vomiting/abdominal pain. Room air saturations 95%. She denies any pain this morning and reports having a good night. Encouraged to be up in chair for all meals and up about in room, will order PT/OT eval Exam Vital signs and Labs for Last 24 Hours: Temp Pulse Resp BP Pulse Ox 98.3 F 107 H 21 156/73 H 94 L 12/31/21 08:00 12/31/21 08:00 12/31/21 08:00 12/31/21 08:00 12/31/21 08:00 Laboratory Results - last 24 hr 12/31/21 06:36: WBC 5.7, RBC 3.24 L, Hgb 10.0 L, Hct 29.5 L, MCV 90.9, MCH 30.9, MCHC 34.0, RDW 15.1, Plt Count 343, MPV 9.5, Neut % (Auto) 70.5, Lymph % (Auto) 18.3, [place] % (Auto) 7.2, Eos % (Auto) 3.1, Baso % (Auto) 1.0, Neut # (Auto) 4.0, Lymph # (Auto) 1.0, [place] # (Auto) 0.4, Eos # (Auto) 0.2, Baso # (Auto) 0.1 12/31/21 06:36: Sodium 136, Potassium 3.0 L, Chloride 103, Carbon Dioxide 21 L, Anion Gap 15.0, BUN < 2 L, Creatinine 0.50 L D, Estimated Creat Clear 140, Estimated GFR 126, Est GFR ( Amer) 152 D, Glucose 90, Calcium 8.1 L I & O for Last 24 hours: Intake & Output 12/28/21 12/29/21 12/30/21 12/31/21 23:59 23:59 23:59 23:59 Intake Total 298 / 298 1800 / 1800 2754 / 2754 1476 / 1476 Output Total 1250 / 2100 4200 / 4500 952 / 952 0 / 0 Balance -952 / -1802 -2400 / -2700 1802 / 1802 1476 / 1476 Weight 165 lb 3.2 oz 166 lb 3.2 oz 166 lb 1.6 oz 163 lb 12.8 oz - Constitutional no acute distress - *Routine HEENT Exam Head: Present: normocephalic Eye: Present: EOMI ENT: Present: mucous membranes moist - *Routine Neck Exam Present: trachea midline. Absent: tracheal deviation - *Routine Respiratory Exam Present: CTA bilaterally. Absent: accessory muscle use - *Routine Cardiovascular Exam Present: RRR - *Routine Abdominal Exam Present: soft, normoactive bowel sounds, tenderness, wound Comments: Midline abdominal incision Edges well approximated Matt intact No redness or warmth - *Routine Extremities Exam Present: full ROM, pulses intact. Absent: cyanosis, clubbing - *Routine Skin Exam Present: dry, warm, wounds. Absent: intact, cyanosis, erythema Comments: Midline abdominal incision Edges well approximated Matt intact No redness or warmth - *Routine Neurological Exam Present: alert, oriented X3, moving all extremities. Absent: motor deficit - Routine Psychiatric Exam Present: normal affect, normal thought process. Absent: visual hallucinations Assessment and Plan (1) Partial small bowel obstruction Status: Acute Category: Medical Code(s): K56.600 - Partial intestinal obstruction, unspecified as to cause (2) Chest pain Status: Acute Category: Medical Code(s): R07.9 - Chest pain, unspecified (3) Hypokalemia Status: Acute Category: Medical Code(s): E87.6 - Hypokalemia (4) Neuropathy Status: Chronic Category: Medical Code(s): G62.9 - Polyneuropathy, unspeci fied (5) Tobacco use Status: Chronic Category: Social Hx Code(s): Z72.0 - Tobacco use - Assessment and plan all Dx Assessment and Plan for all problems:: Rounded with Dr. Morales, all orders per Dr. Morales: 1. General surgery following 2. PT/OT referral
--- NOTE | 2021-12-31 09:59 | HMH.ACPN2 ---
Internal Medicine - PN: Subj *Date: 12/31/21 *Time: 09:59 Exam Vital signs and Labs for Last 24 Hours: Temp Pulse Resp BP Pulse Ox 98.3 F 107 H 21 156/73 H 94 L 12/31/21 08:00 12/31/21 08:00 12/31/21 08:00 12/31/21 08:00 12/31/21 08:00 Laboratory Results - last 24 hr 12/31/21 06:36: WBC 5.7, RBC 3.24 L, Hgb 10.0 L, Hct 29.5 L, MCV 90.9, MCH 30.9, MCHC 34.0, RDW 15.1, Plt Count 343, MPV 9.5, Neut % (Auto) 70.5, Lymph % (Auto) 18.3, [place] % (Auto) 7.2, Eos % (Auto) 3.1, Baso % (Auto) 1.0, Neut # (Auto) 4.0, Lymph # (Auto) 1.0, [place] # (Auto) 0.4, Eos # (Auto) 0.2, Baso # (Auto) 0.1 12/31/21 06:36: Sodium 136, Potassium 3.0 L, Chloride 103, Carbon Dioxide 21 L, Anion Gap 15.0, BUN < 2 L, Creatinine 0.50 L D, Estimated Creat Clear 140, Estimated GFR 126, Est GFR ( Amer) 152 D, Glucose 90, Calcium 8.1 L I & O for Last 24 hours: Intake & Output 12/28/21 12/29/21 12/30/21 12/31/21 23:59 23:59 23:59 23:59 Intake Total 298 / 298 1800 / 1800 2754 / 2754 1476 / 1476 Output Total 1250 / 2100 4200 / 4500 952 / 952 0 / 0 Balance -952 / -1802 -2400 / -2700 1802 / 1802 1476 / 1476 Weight 74.933 kg 75.387 kg 75.342 kg 74.298 kg Assessment and Plan (1) Partial small bowel obstruction Status: Acute Category: Medical Code(s): K56.600 - Partial intestinal obstruction, unspecified as to cause (2) Chest pain Status: Acute Category: Medical Code(s): R07.9 - Chest pain, unspecified (3) Hypokalemia Status: Acute Category: Medical Code(s): E87.6 - Hypokalemia (4) Neuropathy Status: Chronic Category: Medical Code(s): G62.9 - Polyneuropathy, unspecified (5) Tobacco use Status: Chronic Category: Social Hx Code(s): Z72.0 - Tobacco use The patient's infection will respond to the chosen ABx?: Yes (BLOOD CULTURE NO GROWTH) Is the patient receiving the right drug, dose, and route?: Yes Could a more targeted ABx be ordered?: No
--- NOTE | 2021-12-31 13:22 | HMH.PTEV ---
Physical Therapy Evaluation Rehab PT IP Evaluation Start: 12/31/21 11:50 Freq: ONCE Status: Complete Protocol: Document 12/31/21 13:18 ODALYS (Rec: 12/31/21 13:22 ODALYS [id number]) Subjective/History History History Pt is a 61 y/o female admitted to [facility] for SBO and eventual adhesion removal and SB resection Subjective Subjective c/o soreness in abdomen Rehab PT IP Eval Objective Appearance Patient Behavior Appropriate,Cooperative Patient Orientation Place,Name,Birthday Difficulty following instructions none Speech Pattern Clear,Appropriate Ambulation Patient Able to Ambulate Yes Ambulation Observation IP General Gait Pattern Observation Shuffling Step Ambulation Distance (feet) 35 Ambulation Assistive Device Rolling Walker Ambulation Ability Supervision/Stand by Balance Ability to Arise Able, uses arms to help Sitting Balance Steady, safe Standing Balance Steady, wide stance Dynamic Sitting Balance Ability Good Dynamic Standing Balance Ability Fair Transfers Bed Transfer Ability Contact Guard/Hand Hold Chair Transfer Ability Supervision/Stand by Sit to Stand Bed Transfer Ability Supervision/Stand by Sit to Stand Chair Transfer Ability Supervision/Stand by Rehab PT IP prob,goals,plan Problems Date of Evaluation: 12/31/21 Rehab Potential Rehab Potential Innapropriate for Skilled Therapy Discharge Plan PT Discharge Plan Pt independent w/ transfers and mobility - limited due to pain but still independent - pt safe to return home w/ supervision from daughter and rolling walker as AD once medically stable G -code Required No Eval Complexity Eval Charge Codes 06196 - Low Complexity PHYSICIAN CERTIFICATION: I certify the specified therapy services for Sabina Hood are required, authorized, and reviewed every 30 days.
--- NOTE | 2021-12-31 13:55 | HMH.OTEV ---
OT Inpatient Evaluation Rehab OT IP Evaluation Start: 12/31/21 11:51 Freq: ONCE Status: Complete Protocol: Document 12/31/21 13:47 [facility] INC[facility] (Rec: 12/31/21 13:54 [facility] [id number]) Rehab OT IP Assessment Subjective History Pt oriented x 3 on arrival. Pt agreeable to engage in therapy session. Pt was admitted via ED on 12/24/21 due to partial bowel obstruction. Pt reports prior to being in the hosptial she lived at home alone. She lived in an apartment with no steps. Pt claims she was independent with all ADLs and IADLs. She did not use any AE during ambulation or transfers. The following information was copied from history and physical report: 61 yr old female presented to the emergency department with increasing abdominal pain, nausea and vomiting. Patient states that she had a somewhat firm bowel movement yesterday morning. She has not passed flatus or had a bowel movement since this time. Patient states she was unable to keep any food or liquids down and the pain kept increasing. Ct shows Findings may be consistent with developing small bowel obstruction and large amt retained stool. Patient was admitted for surgery consult. Patient reports a prior surgery to have part of her bowels removed when she was 9 yrs old . Subjective I am sore, but I can get up. Pt resting in chair on arrival . Pt agreeable to engage in therapy evaluation. Pt completed lower body dressing by doffing and donning a sock with cga. Pt then stood from chair with cga and engaged in
--- NOTE | 2021-12-31 16:44 | PC.NURSE ---
PT IS A&O X4. SHE HAS BEEN UP WITH X1 ASSIST. SHE HAS BEEN MEDICATED PER MAR FOR NAUSEA AND PAIN. NO EPISODES OF VOMITING. MIDLINE INCISION IS OPEN TO AIR WITH SMALL AMOUNT OF DRAINAGE. GAUZE IN PLACE. PT HAS HAD NO OTHER COMPLAINTS THUS FAR THIS SHIFT.
[2022-01-01 03:52] VITALS: BP 162/89; PULSE 108; RESP 18; TEMP 36.7; O2SAT 96
[2022-01-01 04:54] VITALS: BMI 25.3
--- NOTE | 2022-01-01 06:17 | PC.NURSE ---
Pt has not rested much this shift. Has c/o of pain in abdomen and some nausea, medicated per OCT. Pt can ambulate with stand by assist to bathroom. Has reported passing flatulence this shift. Reports x3 small soft bowel movements. Midline incision is BRANDON, gauze in place around umbilical area.
[2022-01-01 06:51] LABS: Basophils # 0.1 K/mm3 (0-0.2); Basophils % 1.9 % (0.1-2.0); Eosinophils # 0.1 K/mm3 (0.0-0.4); Hematocrit 32.5 % (37.0-47.0); Lymphocytes # 1.3 K/mm3 (0.7-4.5); Lymphocytes % 20.2 % (10-50); Mean Corpuscular Hemoglobin 30.8 pg (27.0-31.2); Mean Corpuscular Volume 90.5 fl (81-99); Mean Platelet Volume 9.2 fl (7.4-10.4); Monocytes # 0.4 K/mm3 (0.1-1.0); Neutrophils # 4.4 K/mm3 (1.8-7.8); Neutrophils % 69.8 % (37.0-80.0); Platelet Count 426 K/mm3 (142-424); Red Blood Count 3.59 M/mm3 (4.20-5.40); Red Cell Distribution Width 15.2 % (11.5-17.5); White Blood Count 6.3 K/mm3 (4.8-10.8)
--- NOTE | 2022-01-01 07:05 | HMH.GSPN ---
Subjective Patient reports: flatus, bowel movement Narrative: Some nausea yesterday afternoon. She did receive Zofran and states that she has had no real nausea since . No emesis. Overall, she states that she feels just a little bit better . Progress Note: A&P (1) Partial small bowel obstruction Status: Acute Assessment and plan: Overall, continuing to slowly improve status post exploratory laparotomy with extensive lysis of adhesions and partial small bowel resection. Continue to increase ambulation and incentive spirometer use Full liquid diet ordered (2) Chest pain Status: Acute (3) Hypokalemia Status: Acute (4) Neuropathy Status: Chronic (5) Tobacco use Status: Chronic Exam Vital signs and Labs for Last 24 Hours: Temp Pulse Resp BP Pulse Ox 98.1 F 108 H 18 162/89 H 96 01/01/22 03:52 01/01/22 03:52 01/01/22 03:52 01/01/22 03:52 01/01/22 03:52 Laboratory Results - last 24 hr 12/31/21 06:36: WBC 5.7, RBC 3.24 L, Hgb 10.0 L, Hct 29.5 L, MCV 90.9, MCH 30.9, MCHC 34.0, RDW 15.1, Plt Count 343, MPV 9.5, Neut % (Auto) 70.5, Lymph % (Auto) 18.3, [place] % (Auto) 7.2, Eos % (Auto) 3.1, Baso % (Auto) 1.0, Neut # (Auto) 4.0, Lymph # (Auto) 1.0, [place] # (Auto) 0.4, Eos # (Auto) 0.2, Baso # (Auto) 0.1 12/31/21 06:36: Sodium 136, Potassium 3.0 L, Chloride 103, Carbon Dioxide 21 L, Anion Gap 15.0, BUN < 2 L, Creatinine 0.50 L D, Estimated Creat Clear 140, Estimated GFR 126, Est GFR ( Amer) 152 D, Glucose 90, Calcium 8.1 L 01/01/22 06:21: WBC 6.3, RBC 3.59 L, Hgb 11.0 L, Hct 32.5 L, MCV 90.5, MCH 30.8, MCHC 34.0, RDW 15.2, Plt Count 426 H, MPV 9.2, Neut % (Auto) 69.8, Lymph % (Auto) 20.2, [place] % (Auto) 6.0, Eos % (Auto) 2.0, Baso % (Auto) 1.9, Neut # (Auto) 4.4, Lymph # (Auto) 1.3, [place] # (Auto) 0.4, Eos # (Auto) 0.1, Baso # (Auto) 0.1 I & O for Last 24 hours: Intake & Output 12/29/21 12/30/21 12/31/21 01/01/22 11:59 11:59 11:59 11:59 Intake Total 1800 / 1800 1800 / 1800 2430 / 2430 2000 Output Total 5150 / 5150 1070 / 1070 182 / 182 Balance -3350 / -3350 730 / 730 2248 / 2248 2000 Weight 166 lb 3.2 oz 166 lb 1.6 oz 163 lb 12.8 oz 152 lb 2 oz - Constitutional no acute distress - *Routine Respiratory Exam Absent: respiratory distress - *Routine Cardiovascular Exam Present: tachycardia - *Routine Abdominal Exam Comments: Incision healing without sign of infection
[2022-01-01 07:08] LABS: Chloride 107 mmol/L (98-107)
[2022-01-01 07:09] LABS: Sodium 135 mmol/L (136-145)
[2022-01-01 07:12] LABS: Blood Urea Nitrogen < 2 mg/dl (7-17); Calcium 8.9 mg/dl (8.4-10.2); Carbon Dioxide 19 mmol/L (22.0-30.0); Creatinine Clearance Estimated 163 mL/min (50-200); Estimated Glomerular Filt Rate 163 ml/min (>60); GFR (African American) 197 ML/MIN (>60); Glucose 110 mg/dl (74-100)
[2022-01-01 08:00] VITALS: BP 162/89; PULSE 92; RESP 18; TEMP 36.5; O2SAT 97
--- NOTE | 2022-01-01 09:56 | HMH.ACPN2 ---
Internal Medicine - PN: Subj *Date: 01/01/22 *Time: 08:10 Interval history: pt sitting up in bed eating ice chips, states she feels better Exam Vital signs and Labs for Last 24 Hours: Temp Pulse Resp BP Pulse Ox 97.7 F 92 H 18 162/89 H 97 01/01/22 08:00 01/01/22 08:00 01/01/22 08:00 01/01/22 08:00 01/01/22 08:00 Laboratory Results - last 24 hr 01/01/22 06:21: WBC 6.3, RBC 3.59 L, Hgb 11.0 L, Hct 32.5 L, MCV 90.5, MCH 30.8, MCHC 34.0, RDW 15.2, Plt Count 426 H, MPV 9.2, Neut % (Auto) 69.8, Lymph % (Auto) 20.2, [place] % (Auto) 6.0, Eos % (Auto) 2.0, Baso % (Auto) 1.9, Neut # (Auto) 4.4, Lymph # (Auto) 1.3, [place] # (Auto) 0.4, Eos # (Auto) 0.1, Baso # (Auto) 0.1 01/01/22 06:21: Sodium 135 L, Potassium 4.0 D, Chloride 107, Carbon Dioxide 19 L, Anion Gap 13.0, BUN < 2 L, Creatinine 0.40 L, Estimated Creat Clear 163, Estimated GFR 163, Est GFR ( Amer) 197 D, Glucose 110 H D, Calcium 8.9 I & O for Last 24 hours: Intake & Output 12/29/21 12/30/21 12/31/21 01/01/22 11:59 11:59 11:59 11:59 Intake Total 1800 / 1800 1800 / 1800 2430 / 2430 2481 / 2481 Output Total 5150 / 5150 1070 / 1070 182 / 182 Balance -3350 / -3350 730 / 730 2248 / 2248 2481 / 2481 Weight 166 lb 3.2 oz 166 lb 1.6 oz 163 lb 12.8 oz 152 lb 2 oz - Constitutional no acute distress - *Routine HEENT Exam Head: Present: normocephalic Eye: Present: PERRL ENT: Present: mucous membranes moist - *Routine Neck Exam Present: supple. Absent: lymphadenopathy - *Routine Respiratory Exam Present: CTA bilaterally - *Routine Cardiovascular Exam Present: RRR - *Routine Abdominal Exam Present: soft, tenderness - *Routine Extremities Exam Absent: cyanosis, clubbing, edema - *Routine Skin Exam Present: warm. Absent: rash Comments: incision c/d/i sondra in place - *Routine Neurological Exam Present: alert, oriented X3 Assessment and Plan (1) Partial small bowel obstruction Status: Acute Category: Medical Code(s): K56.600 - Partial intestinal obstruction, unspecified as to cause (2) Chest pain Status: Acute Category: Medical Code(s): R07.9 - Chest pain, unspecified (3) Hypokalemia Status: Acute Category: Medical Code(s): E87.6 - Hypokalemia (4) Neuropathy Status: Chronic Category: Medical Code(s): G62.9 - Polyneuropathy, unspecified (5) Tobacco use Status: Chronic Category: Social Hx Code(s): Z72.0 - Tobacco use - Assessment and plan all Dx Assessment and Plan for all problems:: rounded with dr jay all orders per dr jay continue to follow with surgery advance diet oob
[2022-01-01 12:00] VITALS: BP 158/98; PULSE 86; RESP 20; TEMP 36.3; O2SAT 99
[2022-01-01 16:00] VITALS: BP 162/90; PULSE 93; RESP 20; TEMP 37.3; O2SAT 97
--- NOTE | 2022-01-01 16:30 | PC.NURSE ---
Pt has received PRN pain medication twice so far this shift, and PRN medication for nausea once so far this shift. Pt has ambulated in room and to the bathroom with standby assistance today, tolerated well with no c/o pain after ambulation. Her midline incision is open to air with a 2X2 gauze covering navel. No drainage or signs of infection present. Pt had no episodes of emesis so far this shift. She did not tolerate full liquid diet.
[2022-01-01 20:00] VITALS: BP 166/99; PULSE 89; RESP 16; TEMP 37.3; O2SAT 98
[2022-01-02] VITALS: BP 152/97; PULSE 92; RESP 16; TEMP 37.2; O2SAT 96
[2022-01-02 04:00] VITALS: BP 150/97; PULSE 91; RESP 16; TEMP 37.2; O2SAT 95
[2022-01-02 05:00] VITALS: BMI 24.7
--- NOTE | 2022-01-02 05:59 | PC.NURSE ---
Pt has rested intermittently t/o shift. Pt voiced pain x1 this shift, medicated per OCT. Pt has ambulated to bathroom with stand by assist and tolerated well. 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
[2022-01-02 06:42] LABS: Basophils # 0.1 K/mm3 (0-0.2); Basophils % 0.7 % (0.1-2.0); Eosinophils # 0.2 K/mm3 (0.0-0.4); Eosinophils % 1.1 % (0.1-12.0); Hematocrit 32.9 % (37.0-47.0); Hemoglobin 11.4 g/dL (12.2-16.2); Lymphocytes # 1.7 K/mm3 (0.7-4.5); Lymphocytes % 12.1 % (10-50); Mean Corpuscular HGB Conc 34.5 g/dL (31.8-35.4); Mean Corpuscular Hemoglobin 30.7 pg (27.0-31.2); Monocytes # 0.7 K/mm3 (0.1-1.0); Neutrophils # 11.4 K/mm3 (1.8-7.8); Neutrophils % 81.1 % (37.0-80.0); Platelet Count 551 K/mm3 (142-424); Red Cell Distribution Width 15.5 % (11.5-17.5); White Blood Count 14.1 K/mm3 (4.8-10.8)
--- NOTE | 2022-01-02 06:53 | HMH.GSPN ---
Subjective Patient reports: feels better, flatus, bowel movement Progress Note: A&P (1) Partial small bowel obstruction Status: Acute Assessment and plan: Overall, continuing to improve status post exploratory laparotomy with extensive lysis of adhesions and partial small bowel resection. Soft diet ordered Remove one half of sondra Likely discharge home soon with close outpatient follow-up (2) Chest pain Status: Acute (3) Hypokalemia Status: Acute (4) Neuropathy Status: Chronic (5) Tobacco use Status: Chronic Exam Vital signs and Labs for Last 24 Hours: Temp Pulse Resp BP Pulse Ox 98.9 F 91 H 16 150/97 H 95 01/02/22 04:00 01/02/22 04:00 01/02/22 04:00 01/02/22 04:00 01/02/22 04:00 Laboratory Results - last 24 hr 01/01/22 06:21: WBC 6.3, RBC 3.59 L, Hgb 11.0 L, Hct 32.5 L, MCV 90.5, MCH 30.8, MCHC 34.0, RDW 15.2, Plt Count 426 H, MPV 9.2, Neut % (Auto) 69.8, Lymph % (Auto) 20.2, Braxton % (Auto) 6.0, Eos % (Auto) 2.0, Baso % (Auto) 1.9, Neut # (Auto) 4.4, Lymph # (Auto) 1.3, Braxton # (Auto) 0.4, Eos # (Auto) 0.1, Baso # (Auto) 0.1 01/01/22 06:21: Sodium 135 L, Potassium 4.0 D, Chloride 107, Carbon Dioxide 19 L, Anion Gap 13.0, BUN < 2 L, Creatinine 0.40 L, Estimated Creat Clear 163, Estimated GFR 163, Est GFR ( Amer) 197 D, Glucose 110 H D, Calcium 8.9 01/02/22 06:38: WBC 14.1 H D, RBC 3.70 L, Hgb 11.4 L, Hct 32.9 L, MCV 89.0, MCH 30.7, MCHC 34.5, RDW 15.5, Plt Count 551 H D, MPV 9.0, Neut % (Auto) 81.1 H, Lymph % (Auto) 12.1, Braxton % (Auto) 5.0, Eos % (Auto) 1.1, Baso % (Auto) 0.7, Neut # (Auto) 11.4 H, Lymph # (Auto) 1.7, Braxton # (Auto) 0.7, Eos # (Auto) 0.2, Baso # (Auto) 0.1 I & O for Last 24 hours: Intake & Output 12/30/21 12/31/21 01/01/22 01/02/22 11:59 11:59 11:59 11:59 Intake Total 1800 / 1800 2430 / 2430 2481 / 2481 937 / 937 Output Total 1070 / 1070 182 / 182 Balance 730 / 730 2248 / 2248 2481 / 2481 937 / 937 Weight 166 lb 1.6 oz 163 lb 12.8 oz 152 lb 2 oz 148 lb 14.4 oz - Constitutional no acute distress - *Routine Respiratory Exam Absent: respiratory distress - *Routine Cardiovascular Exam Present: RRR - *Routine Abdominal Exam Comments: Incision healing without sign of infection
[2022-01-02 07:13] LABS: Chloride 104 mmol/L (98-107); Sodium 135 mmol/L (136-145)
[2022-01-02 07:16] LABS: Blood Urea Nitrogen 3 mg/dl (7-17); Creatinine Clearance Estimated 159 mL/min (50-200); Estimated Glomerular Filt Rate 163 ml/min (>60); GFR (African American) 197 ML/MIN (>60)
[2022-01-02 07:17] LABS: Calcium 9.1 mg/dl (8.4-10.2); Carbon Dioxide 16 mmol/L (22.0-30.0); Glucose 100 mg/dl (74-100)
[2022-01-02 08:00] VITALS: BP 160/93; PULSE 92; RESP 18; TEMP 36.6; O2SAT 95
--- NOTE | 2022-01-02 10:40 | HMH.DCSUM ---
General - General Admission date:: 12/24/21 Discharge date: 01/02/22 HPI HPI: 61 yr old female presented to the emergency department with increasing abdominal pain, nausea and vomiting. Patient states that she had a somewhat firm bowel movement yesterday morning. She has not passed flatus or had a bowel movement since this time. Patient states she was unable to keep any food or liquids down and the pain kept increasing. Ct shows Findings may be consistent with developing small bowel obstruction and large amt retained stool. Patient was admitted for surgery consult. Patient reports a prior surgery to have part of her bowels removed when she was 9 yrs old. Hospital Course Hospital Course: 61 yr old female presented to the emergency department with increasing abdominal pain, nausea and vomiting. Patient states that she had a somewhat firm bowel movement yesterday morning. She has not passed flatus or had a bowel movement since this time. Patient states she was unable to keep any food or liquids i And the pain kept increasing. Ct shows Findings may be consistent with developing small bowel obstruction and large amt retained stool. Patient was admitted for surgery consult. Patient reports a prior surgery to have part of her bowels removed when she was 9 yrs old. Since 12/26/21 upper GI with small bowel follow-through: FINDINGS: Images reveal dilated small bowel loops in the abdomen and left pelvis. No discrete transition point is identified. Contrast does not reach the colon until the 19 hour film. This is a very delayed transit time. There is some gas in the colon throughout the exam. IMPRESSION: Small bowel dilatation with delayed transit time. Exact transition point is not identified. Findings are concerning for a partial small bowel obstruction 12/27/21 General surgery performed Exploratory laparotomy with extensive lysis of adhesions and distal small bowel resection Operative findings:: Extensive adhesions throughout abdomen Multiple adhesions of omentum, small bowel, and colon extending from the deep pelvis to the upper quadrant (left greater than right) Transverse colonic anastomosis in the pelvis (prior surgery at age 9) No obvious ureteral or bladder injury (intraoperative consultation with Dr. Lucas of the urology service) Cardiology has seen and recommends: Atypical chest pain - Burning in chest, associated with epigastic pain, intermittent since GI issues developed. NG tube in place. questionable pneumonia noted on xray. SBO - Trop negative on 12/24 - EKG negative for ischemic changes - Recommend outpatient stress testing as needed Hx of CAD - MVCAD s/p CABG in 2016 - last [facility] 08/23- medical management - Maximize GDT- BB, statin, Consider transitioning plavix to low dose xarelto prior to DC when surgery clears. add aspirin back when surgery clears. - outpatient stress testing as needed. HLD - Crestor 40mg QD HTN - Valsartan 80mg QD CV stable at this time. Recommend treatment of underlying illnesses. Please have patient follow up in the office one week after discharge. Please contact service for new or changing pain or symptoms. 61-year-old female patient moved to [facility] for ongoing abdominal pain and increasing nausea and vomiting. After admission she was n.p.o. and received IV fluids, NG was placed and on 12/26/2021 upper GI with small bowel follow-through revealed a small bowel obstruction. Patient complained of occasional chest pain/burning and cardiology was consulted. After increasing nausea and abdominal pain on 12/27/2021 General surgery performed an Exploratory laparotomy with extensive lysis of adhesions and distal small bowel resection. She tolerated procedure well and pain was well controlled with as needed medications she was kept NPO. 12/30/2021 NG tube was removed, she reported no nausea the next morning she tolerated clear liquid breakfast with no difficu
[2022-01-02 10:55] VITALS: PULSE 86; RESP 16
--- NOTE | 2022-01-02 11:13 | CARE MANAGER ---
Ordered rolling walker from [facility] and they will deliver to patient. Informed patient shower chair is not covered by insurance. Ayleen Desai
--- NOTE | 2022-01-02 11:45 | DIET.NUTRFU ---
Addendum entered by Blanca Villanueva RD, LD 01/02/22 12:40: reviewed handout, discussed small meals high in protein on the recommended list. Daughter available to go grocery shopping to help with meals when discharged Original Note: During rounds today, patient refused breakfast, c/o not being hungry. She reports her appetite was poor prior to admit. Tried Boost clear today for breakfast, will check on amount consumed. Also reviewed changing mealtime to 6 small meals to help rebuild appetite when discharged home. Also reviewed low fiber during recovery, will provide handout
--- NOTE | 2022-01-02 12:06 | PC.NURSE ---
12 sondra removed from midline incision at this time and replaced with steri strips.
--- NOTE | 2022-01-03 11:26 | CARE MANAGER ---
Contacted patient related to hospital discharge follow up. she picked up her new prescriptions. She wrote down her follow up appointment with Dr. Vidal and will call and schedule one with Dr. Morales. She denies any questions or concerns.
== END 2022-01-02 13:09 | disposition home or self-care (01) | DRG 329 ==
LOC: ER 18:37 → 2ND 19:02
PROVIDERS: Nurse Practitioner Family; Surgery; Admitting Provider Emergency Medicine; Emergency Provider Emergency Medicine; PCP Emergency Medicine; Visit Provider Emergency Medicine
PROC: 0DB80ZZ Excision of Small Intestine, Open Approach (ICD-10-PCS; CPT 49000; principal; 2021-12-27 14:30)
DX: K56.51 Intestinal adhesions [bands], with partial obstruction (principal); J18.9 Pneumonia, unspecified organism; E87.6 Hypokalemia; F17.210 Nicotine dependence, cigarettes, uncomplicated; J44.9 Chronic obstructive pulmonary disease, unspecified; I25.10 Atherosclerotic heart disease of native coronary artery without angina pectoris; M19.90 Unspecified osteoarthritis, unspecified site; I11.0 Hypertensive heart disease with heart failure; I50.9 Heart failure, unspecified; Z95.1 Presence of aortocoronary bypass graft; Z95.5 Presence of coronary angioplasty implant and graft; I25.2 Old myocardial infarction; E78.5 Hyperlipidemia, unspecified; F32.A Depression, unspecified; F41.9 Anxiety disorder, unspecified; G62.9 Polyneuropathy, unspecified; R07.89 Other chest pain
CPT/HCPCS: 44120; 44005; 36415; 71045; 74021; 74176; 74250; 80048; 80053; 81001; 83690; 84484; 85007; 85014; 85018; 85025; 87040; 87086; 88307; 93005; 96375; 97161; 97166; C9803; J0456; J0696; J2405; J2543; J2710; U0003; U0005

== ENCOUNTER → 2022-02-19 06:30 | Outpatient (CLI) | payer MEDICARE, MEDICAID, SELFPAY ==
[2022-02-18 20:40] LABS: Amphetamine/Metha Screen,Urine Negative ng/ml (<1000)
[2022-02-18 20:41] LABS: Barbiturates Screen,Urine Negative ng/ml (<200); Benzodiazepines Screen,Urine Negative ng/ml (<200)
[2022-02-18 20:42] LABS: Cannabinoid Screen,Urine Negative ng/ml (<50); Cocaine Screen,Urine Negative ng/ml (<300)
[2022-02-18 20:43] LABS: Methadone Screen,Urine Negative ng/ml (<300)
[2022-02-18 20:44] LABS: Opiate Screen,Urine Positive ng/ml (<300)
[2022-02-18 20:46] LABS: Phencyclidine Screen,Urine Negative ng/ml (<25)
== END ==
PROVIDERS: PCP Emergency Medicine; Visit Provider Emergency Medicine
DX: T50.901A Poisoning by unspecified drugs, medicaments and biological substances, accidental (unintentional), initial encounter (principal)
CPT/HCPCS: 80305

== ENCOUNTER → 2022-03-12 19:16 | Outpatient (CLI) | payer MEDICARE, MEDICAID, SELFPAY ==
[2022-03-12 16:23] LABS: Amphetamine/Metha Screen,Urine Negative ng/ml (<1000)
[2022-03-12 16:24] LABS: Barbiturates Screen,Urine Negative ng/ml (<200)
[2022-03-12 16:26] LABS: Benzodiazepines Screen,Urine Negative ng/ml (<200); Cannabinoid Screen,Urine Negative ng/ml (<50)
[2022-03-12 16:27] LABS: Cocaine Screen,Urine Negative ng/ml (<300); Methadone Screen,Urine Negative ng/ml (<300)
[2022-03-12 16:28] LABS: Opiate Screen,Urine Positive ng/ml (<300)
[2022-03-12 16:29] LABS: Phencyclidine Screen,Urine Negative ng/ml (<25)
== END ==
PROVIDERS: PCP Emergency Medicine; Visit Provider Emergency Medicine
DX: Z79.899 Other long term (current) drug therapy (principal)
CPT/HCPCS: 80305

== ENCOUNTER → 2022-05-07 14:10 | Outpatient (CLI) | payer MEDICARE, MEDICAID, SELFPAY ==
[2022-05-07 19:53] LABS: Amphetamine/Metha Screen,Urine Negative ng/ml (<1000)
[2022-05-07 19:54] LABS: Barbiturates Screen,Urine Negative ng/ml (<200); Benzodiazepines Screen,Urine Negative ng/ml (<200)
[2022-05-07 19:55] LABS: Cannabinoid Screen,Urine Negative ng/ml (<50)
[2022-05-07 19:56] LABS: Cocaine Screen,Urine Negative ng/ml (<300); Methadone Screen,Urine Negative ng/ml (<300)
[2022-05-07 19:57] LABS: Opiate Screen,Urine Positive ng/ml (<300)
[2022-05-07 19:58] LABS: Phencyclidine Screen,Urine Negative ng/ml (<25)
== END ==
PROVIDERS: PCP Emergency Medicine; Visit Provider Emergency Medicine
DX: R82.90 Unspecified abnormal findings in urine (principal); Z79.899 Other long term (current) drug therapy; B96.29 Other Escherichia coli [E. coli] as the cause of diseases classified elsewhere
CPT/HCPCS: 80305; 87086; 87088; 87186

== ENCOUNTER → 2022-07-07 13:20 | Outpatient (CLI) | payer MEDICARE, MEDICAID, SELFPAY ==
[2022-07-07 19:16] LABS: Amphetamine/Metha Screen,Urine Negative ng/ml (<1000)
[2022-07-07 19:17] LABS: Barbiturates Screen,Urine Negative ng/ml (<200); Benzodiazepines Screen,Urine Negative ng/ml (<200)
[2022-07-07 19:18] LABS: Cannabinoid Screen,Urine Negative ng/ml (<50)
[2022-07-07 19:20] LABS: Cocaine Screen,Urine Negative ng/ml (<300)
[2022-07-07 19:21] LABS: Methadone Screen,Urine Negative ng/ml (<300); Opiate Screen,Urine Positive ng/ml (<300)
[2022-07-07 19:22] LABS: Phencyclidine Screen,Urine Negative ng/ml (<25)
== END ==
PROVIDERS: PCP Emergency Medicine; Visit Provider Emergency Medicine
DX: Z79.899 Other long term (current) drug therapy (principal)
CPT/HCPCS: 80305

== ENCOUNTER → 2022-09-02 13:50 | Outpatient (CLI) | payer MEDICARE, MEDICAID, SELFPAY ==
[2022-09-02 20:27] LABS: Amphetamine/Metha Screen,Urine Negative ng/ml (<1000)
[2022-09-02 20:28] LABS: Barbiturates Screen,Urine Negative ng/ml (<200)
[2022-09-02 20:29] LABS: Benzodiazepines Screen,Urine Negative ng/ml (<200); Cannabinoid Screen,Urine Negative ng/ml (<50)
[2022-09-02 20:30] LABS: Cocaine Screen,Urine Negative ng/ml (<300)
[2022-09-02 20:31] LABS: Methadone Screen,Urine Negative ng/ml (<300); Opiate Screen,Urine Positive ng/ml (<300)
[2022-09-02 20:32] LABS: Phencyclidine Screen,Urine Negative ng/ml (<25)
== END ==
PROVIDERS: PCP Emergency Medicine; Visit Provider Emergency Medicine
DX: Z79.899 Other long term (current) drug therapy (principal)
CPT/HCPCS: 80305

== ENCOUNTER → 2022-10-28 13:35 | Outpatient (CLI) | payer MEDICARE, MEDICAID, SELFPAY ==
[2022-10-28 19:49] LABS: Barbiturates Screen,Urine Negative ng/ml (<200)
[2022-10-28 19:50] LABS: Benzodiazepines Screen,Urine Negative ng/ml (<200)
[2022-10-28 19:51] LABS: Amphetamine/Metha Screen,Urine Negative ng/ml (<1000); Methadone Screen,Urine Negative ng/ml (<300)
[2022-10-28 19:52] LABS: Cannabinoid Screen,Urine Positive ng/ml (<50)
[2022-10-28 19:53] LABS: Cocaine Screen,Urine Negative ng/ml (<300); Opiate Screen,Urine Positive ng/ml (<300)
[2022-10-28 19:54] LABS: Phencyclidine Screen,Urine Negative ng/ml (<25)
== END ==
PROVIDERS: PCP Emergency Medicine; Visit Provider Emergency Medicine
DX: T50.901A Poisoning by unspecified drugs, medicaments and biological substances, accidental (unintentional), initial encounter (principal)
CPT/HCPCS: 80305

== ENCOUNTER → 2022-12-15 13:12 | Outpatient (CLI) | payer MEDICARE, MEDICAID, SELFPAY ==
--- NOTE | 2022-12-15 13:23 | MM_ITS ---
PROCEDURE INFORMATION: Exam: MG Bilateral Screening 3D Mammography Exam date and time: 12/15/2022 1:30 PM Age: 62 years old Clinical indication: Screening examination; Additional info: Breast cancer screening TECHNIQUE: Imaging protocol: Bilateral Screening tomosynthesis and 2D mammography including computer-aided detection (CAD) when performed. COMPARISON: No relevant prior studies available. FINDINGS: MAMMOGRAPHY: Breast composition: The breasts are heterogeneously dense, which may obscure small masses. Mass: No suspicious masses. Architectural distortion: No suspicious distortion. Calcifications: No suspicious calcifications. Asymmetric density: None. Skin thickening: None. Axillary adenopathy: None. IMPRESSION: 1. No mammographic evidence of malignancy. Annual screening is recommended unless otherwise clinically indicated. 2. Of note, patient reports having prior mammograms. Every attempt should be made to obtain prior mammograms for comparison. If/when these prior exams become available for comparison, an addendum will be made, if necessary. ASSESSMENT: BI-RADS Category 1: Negative
== END ==
PROVIDERS: PCP Emergency Medicine; Visit Provider Emergency Medicine
DX: Z12.31 Encounter for screening mammogram for malignant neoplasm of breast (principal)
CPT/HCPCS: 77063; 77067

== ENCOUNTER → 2022-12-23 13:45 | Outpatient (CLI) | payer MEDICARE, MEDICAID, SELFPAY ==
[2022-12-23 18:32] LABS: Microscopic, Urine URINE MICROSCOPIC (MICROSCOPIC)
[2022-12-23 19:07] LABS: Appearance,Urine CLEAR (Clear); Bilirubin,Urine Negative (Negative); Blood, Urine TRACE-I (Negative); Color,Urine YELLOW (Yellow); Glucose,Urine (UA) Negative (Negative); Ketones,Urine Negative (Negative); Leukocyte Esterase,Urine 3+ (Negative); Nitrate,Urine POSITIVE (Negative); PH,Urine 6.5 (5.0-8.5); Protein,Urine Negative (Negative); Urobilinogen,Urine 0.2 EU/dl (0.2)
[2022-12-23 19:36] LABS: Amphetamine/Metha Screen,Urine Negative ng/ml (<1000)
[2022-12-23 19:37] LABS: Barbiturates Screen,Urine Negative ng/ml (<200); Cocaine Screen,Urine Negative ng/ml (<300)
[2022-12-23 19:38] LABS: Benzodiazepines Screen,Urine Negative ng/ml (<200)
[2022-12-23 19:39] LABS: Cannabinoid Screen,Urine Negative ng/ml (<50); Methadone Screen,Urine Negative ng/ml (<300)
[2022-12-23 19:40] LABS: Opiate Screen,Urine Positive ng/ml (<300)
[2022-12-23 19:41] LABS: Phencyclidine Screen,Urine Negative ng/ml (<25)
[2022-12-23 19:49] LABS: WBC,Urine 20-50 #/hpf (0-3)
[2022-12-23 19:50] LABS: Bacteria,Urine 4+ /lpf; Squamous Epithelial Cell,Urine Occasional #/hpf (0-5)
== END ==
PROVIDERS: PCP Emergency Medicine; Visit Provider Emergency Medicine
DX: N39.0 Urinary tract infection, site not specified; Z79.899 Other long term (current) drug therapy; B96.29 Other Escherichia coli [E. coli] as the cause of diseases classified elsewhere
CPT/HCPCS: 80305; 81001; 87086; 87088; 87186

== ENCOUNTER 2023-02-09 14:06 | Emergency (ER) | payer MEDICARE, MEDICAID, SELFPAY ==
[2023-02-09 14:07] VITALS: BP 190/101; PULSE 100; RESP 18; TEMP 36.7; O2SAT 100; BMI 25.0
--- NOTE | 2023-02-09 14:13 | ECG_ITS ---
APPROVED REPORT Exam: Resting ECG HR:101 bpm ECG Measurements Heart Rate 101 AXES VA 120 P 64 QRSd 94 QRS -2 QT 323 T 92 QTc 381 Conclusion SINUS TACHYCARDIA WITH OCCASIONAL VENTRICULAR PREMATURE COMPLEXES LEFT ATRIAL ENLARGEMENT [-0.15mV P-WAVE IN V1/V2] POSSIBLE RIGHT VENTRICULAR CONDUCTION DELAY [RSR (QR) IN V1/V2] NONSPECIFIC T-WAVE ABNORMALITY ABNORMAL ECG UNCONFIRMED REPORT Electronically signed by : Rafi Levine MD 02/10/2023 07:57:06
--- NOTE | 2023-02-09 14:25 | XR_ITS ---
FINAL REPORT CLINICAL HISTORY: right ankle injury FINDINGS: RIGHT ANKLE 3 views of the right ankle were obtained. There is no acute fracture or dislocation. The mortise is intact. Visualized joint spaces are normally aligned. Soft tissues are unremarkable. IMPRESSION: No acute bony abnormality. Reviewed, Interpreted and Dictated by Buddy Kang III, MD Transcribed by Johnson Johnston Authenticated and . [facility]
--- NOTE | 2023-02-09 14:25 | XR_ITS ---
FINAL REPORT CLINICAL HISTORY: soa COMPARISON: 12/25/2021 FINDINGS: SINGLE VIEW CHEST The heart size is normal. The patient is status post median sternotomy. There are mild bibasilar opacities that favor atelectasis. There is no pneumothorax. IMPRESSION: Mild bibasilar opacities that favor atelectasis. Reviewed, Interpreted and Dictated by Buddy Kang III, MD Transcribed by Johnson Johnston Authenticated and [facility]
[2023-02-09 14:30] VITALS: BP 175/103; PULSE 96; RESP 18; O2SAT 98
--- NOTE | 2023-02-09 14:46 | HMH.EDGENADL ---
Discharge Plan Disposition Patient Disposition: Home, Self-Care Chief Complaint: Chest Pain Prescriptions Prescriptions: No Action tizanidine 4 mg capsule 4 mg PO BID PRN (Reason: muscle spasticity) Qty: 180 0RF aspirin [Adult Low Dose Aspirin] 81 mg tablet,delayed release (DR/EC) 81 mg PO DAILY lisinopril 20 mg tablet 20 mg PO BID metoprolol succinate 50 mg tablet extended release 24 hr 50 mg PO DAILY prazosin 1 mg capsule 1 mg PO HS cefdinir 300 mg capsule 300 mg PO BID Qty: 14 0RF clonazepam 0.5 mg tablet 0.5 mg PO TID Qty: 90 1RF gabapentin 400 mg capsule 400 mg PO QID Qty: 120 1RF hydrocodone-acetaminophen 7.5-325 mg tablet 1 tab PO QID Qty: 120 0RF ziprasidone HCl [Geodon] 20 mg capsule 20 mg PO BID Qty: 60 1RF Rx Instructions: give with food (meal/snack) amitriptyline 100 mg tablet 100 mg PO HS Qty: 30 1RF pantoprazole 40 mg tablet,delayed release (DR/EC) 40 mg PO HS Qty: 90 3RF diclofenac sodium 1 % gel 2 g topical QID Qty: 100 12RF Rx Instructions: apply to single elbow, wrist or hand; for hand includes palm/fingers/back of hand atorvastatin 80 MG tablet 80 mg PO HS nitroglycerin 0.4 MG tablet, sublingual 0.4 mg SL Q5MINP PRN (Reason: chest pain) Rx Instructions: until response; do not exceed 3 doses per episode budesonide-formoterol 10.2 GM HFA aerosol inhaler 2 puff IH BID clopidogrel 75 MG tablet 75 mg PO DAILY Referrals Follow up/Referrals: Garrison Morales MD [Primary Care Provider] - See instructions Clinical Impressions Clinical Impression: Ankle injury Discharge ED Provider: Eloy Cheek General Adult HPI General Chief complaint: Chest Pain Stated complaint: AO 02/08 fall, right foot pain Time Seen by Provider: 02/09/23 14:10 Mode of Arrival: Wheelchair Source of Information: Patient Limitations: No Limitations Description of Symptoms (Recalled from ER Triage Doc. by RN): PT C/O RIGHT FOOT AND ANKLE PAIN AFTER TRIPPING LAST NIGHT, STATES I HEARD A CRACK PT C/O CHEST PAIN, RESOLVED AT THIS TIME. LAST EPISODE WAS YESTERDAY, REPORTS SQUEEZING PAIN THAT RADIATES TO BACK. RESOLVED WITH NITRO History of Present Illness HPI narrative: 62-year-old female presents with right foot pain in her ankle after tripping last night and she felt a crack. She is mainly here for the right ankle pain however she did feel an episode of chest pain yesterday squeezing pain that radiated but now it has completely resolved with nitroglycerin and has not occurred today. No nausea vomiting headache abdominal pain diarrhea. No other injuries Related Data Home Medications Medication Instructions Recorded Confirmed aspirin 81 mg tablet,delayed 81 mg PO DAILY heart health 08/13/17 02/03/23 release (Adult Low Dose Aspirin) clopidogrel 75 mg tablet 75 mg PO DAILY platelet inhibitor 02/03/19 02/03/23 lisinopril 20 mg tablet 20 mg PO BID blood pressure 10/29/21 02/03/23 metoprolol succinate 50 mg 50 mg PO DAILY blood pressure 10/29/21 02/03/23 tablet,extended release 24 hr atorvastatin 80 mg tablet 80 mg PO HS Cholesterol 12/25/21 02/03/23 budesonide-formoterol HFA 80 2 puff inhalation BID COPD 12/26/21 02/03/23 mcg-4.5 mcg/actuation aerosol inhaler nitroglycerin 0.4 mg sublingual 0.4 mg sublingual Q5MINP PRN chest 12/26/21 02/03/23 tablet pain prazosin 1 mg capsule 1 mg PO HS nightmares/sleep 12/23/22 02/03/23 Previous Rx's Medication Instructions Recorded ziprasidone HCl 20 mg capsule 20 mg PO BID #60 caps 09/18/22 (Geodon) tizanidine 4 mg capsule 4 mg PO BID PRN muscle spasticity 10/28/22 #180 caps amitriptyline 100 mg tablet 100 mg PO HS insomnia #30 tabs 12/10/22 cefdinir 300 mg capsule 300 mg PO BID #14 caps 12/23/22 clonazepam 0.5 mg tablet 0.5 mg PO TID Anxiety #90 tabs 12/23/22 gabapentin 400 mg capsule 400 mg PO QID Pain #120 caps 12/23/22 hydrocodone 7.5 mg-ac
[2023-02-09 14:59] LABS: Basophils # 0.1 K/mm3 (0-0.2); Basophils % 0.6 % (0.1-2.0); Eosinophils # 0.1 K/mm3 (0.0-0.4); Eosinophils % 0.7 % (0.1-12.0); Hematocrit 48.7 % (37.0-47.0); Hemoglobin 15.8 g/dL (12.2-16.2); Lymphocytes # 2.5 K/mm3 (0.7-4.5); Lymphocytes % 30.5 % (10-50); Mean Corpuscular HGB Conc 32.4 g/dL (31.8-35.4); Mean Corpuscular Hemoglobin 28.8 pg (27.0-31.2); Mean Corpuscular Volume 88.7 fl (81-99); Mean Platelet Volume 8.4 fl (7.4-10.4); Monocytes # 0.4 K/mm3 (0.1-1.0); Monocytes % 4.6 % (1.7-9.3); Neutrophils # 5.1 K/mm3 (1.8-7.8); Neutrophils % 63.6 % (37.0-80.0); Platelet Count 235 K/mm3 (142-424); Red Blood Count 5.49 M/mm3 (4.20-5.40); Red Cell Distribution Width 16.4 % (11.5-17.5); White Blood Count 8.1 K/mm3 (4.8-10.8)
[2023-02-09 15:00] VITALS: BP 167/98; PULSE 88; RESP 20; O2SAT 98
[2023-02-09 15:30] VITALS: BP 159/93; PULSE 88; RESP 18; O2SAT 98
[2023-02-09 15:31] LABS: Alanine Aminotransferase 22 U/L (12-78); Albumin Level 4.5 g/dl (3.5-5.0); Albumin/Globulin Ratio 1.1 (1.1-1.8); Alkaline Phosphatase 147 U/L (38-126); Anion Gap 13.2 mEq/L (5-15); Aspartate Amino Transferase 35 U/L (14-36); Bilirubin,Total 0.8 mg/dl (0.2-1.3); Blood Urea Nitrogen 12 mg/dl (7-17); Calcium 9.2 mg/dl (8.4-10.2); Carbon Dioxide 26 mmol/L (22.0-30.0); Chloride 100 mmol/L (98-107); Creatinine Clearance Estimated 63 mL/min (50-200); Estimated Glomerular Filt Rate 85 ml/min (>60); GFR (African American) 103 ML/MIN (>60); Glucose 85 mg/dl (74-100); Potassium 4.2 mmoL/L (3.5-5.1); Sodium 135 mmol/L (136-145); Total Protein,Serum 8.5 g/dl (6.3-8.2)
[2023-02-09 15:45] LABS: Troponin I < 0.01 ng/ml (0.00-0.034)
[2023-02-09 16:00] VITALS: BP 161/95; PULSE 84; RESP 20; O2SAT 98
--- NOTE | 2023-02-09 16:55 | PC.NURSE ---
rounded on pt, pt states no needs at this time. Visitor at BS
[2023-02-09 17:29] VITALS: BP 158/90; PULSE 80; RESP 17; TEMP 36.8; O2SAT 98
== END 2023-02-09 17:33 | disposition home or self-care (01) ==
PROVIDERS: Emergency Provider Emergency Medicine; PCP Emergency Medicine
DX: M25.571 Pain in right ankle and joints of right foot (principal); W01.0XXA Fall on same level from slipping, tripping and stumbling without subsequent striking against object, initial encounter; I11.9 Hypertensive heart disease without heart failure; F33.9 Major depressive disorder, recurrent, unspecified; F17.210 Nicotine dependence, cigarettes, uncomplicated; R07.9 Chest pain, unspecified
CPT/HCPCS: 71045; 73610; 80053; 84484; 85025; 93005; 96374; 96375; 99285

== ENCOUNTER → 2023-02-11 11:00 | Outpatient (CLI) | payer MEDICARE, MEDICAID, SELFPAY ==
[2023-02-11 19:31] LABS: Amphetamine/Metha Screen,Urine Negative ng/ml (<1000); Barbiturates Screen,Urine Negative ng/ml (<200)
[2023-02-11 19:38] LABS: Benzodiazepines Screen,Urine Negative ng/ml (<200)
[2023-02-11 19:39] LABS: Cannabinoid Screen,Urine Negative ng/ml (<50)
[2023-02-11 19:40] LABS: Cocaine Screen,Urine Negative ng/ml (<300); Methadone Screen,Urine Negative ng/ml (<300)
[2023-02-11 19:41] LABS: Opiate Screen,Urine Positive ng/ml (<300); Phencyclidine Screen,Urine Negative ng/ml (<25)
== END ==
PROVIDERS: PCP Emergency Medicine; Visit Provider Emergency Medicine
DX: Z79.899 Other long term (current) drug therapy (principal)
CPT/HCPCS: 80305

== ENCOUNTER → 2023-04-08 12:00 | Outpatient (CLI) | payer MEDICARE, MEDICAID, SELFPAY ==
[2023-04-08 20:02] LABS: Amphetamine/Metha Screen,Urine Negative ng/ml (<1000)
[2023-04-08 20:03] LABS: Barbiturates Screen,Urine Negative ng/ml (<200)
[2023-04-08 20:04] LABS: Cannabinoid Screen,Urine Negative ng/ml (<50)
[2023-04-08 20:05] LABS: Opiate Screen,Urine Positive ng/ml (<300)
[2023-04-08 20:06] LABS: Cocaine Screen,Urine Negative ng/ml (<300); Methadone Screen,Urine Negative ng/ml (<300)
[2023-04-08 20:08] LABS: Phencyclidine Screen,Urine Negative ng/ml (<25)
[2023-04-08 20:30] LABS: Benzodiazepines Screen,Urine Negative ng/ml (<200)
== END ==
PROVIDERS: PCP Emergency Medicine; Visit Provider Emergency Medicine
DX: T50.901A Poisoning by unspecified drugs, medicaments and biological substances, accidental (unintentional), initial encounter (principal); Z79.899 Other long term (current) drug therapy
CPT/HCPCS: 80305

== ENCOUNTER 2023-05-26 22:39 | Observation (INO) | payer MEDICARE, MEDICAID, SELFPAY ==
--- NOTE | 2023-05-26 22:45 | PC.NURSE ---
pt arrived to floor via stretcher direct admit @22:43
[2023-05-26 22:48] VITALS: BP 163/97; PULSE 83; RESP 16; TEMP 36.7; O2SAT 96; BMI 28.6
--- NOTE | 2023-05-26 22:56 | XR_ITS ---
PROCEDURE INFORMATION: Exam: XR Chest Exam date and time: 05/26/2023 11:37 PM Age: 63 years old Clinical indication: Sternal or substernal pain; Additional info: Chest pain TECHNIQUE: Imaging protocol: Radiologic exam of the chest. Views: 2 views. Total images: 2 COMPARISON: CR XR CHEST PORTABLE 02/09/2023 2:39 PM FINDINGS: Lungs: Left basilar atelectasis or scarring. No acute infiltrate, airspace consolidation or vascular congestion. No interstitial edema. Pleural spaces: Chronic biapical pleural thickening. Chronic blunting left lateral costophrenic angle. No pleural effusion. No pneumothorax. Heart/Mediastinum: Unremarkable. No cardiomegaly. No mediastinal widening or hilar enlargement. Vasculature: Atherosclerotic thoracic aorta. Diaphragm: Chronic elevation left hemidiaphragm. Bones/joints: Status post median sternotomy. Osteopenia. Mild degenerative changes thoracic spine. IMPRESSION: 1. No radiographically acute cardiopulmonary process. 2. Stable chronic findings.
--- NOTE | 2023-05-26 22:58 | EXP.HP ---
History of Present Illness *Admission Date: 05/26/23 *Reason for visit:: chest pain *History of present illness: This is a 63 years old female with past medical history of hypertension, CAD status post bypass, hyperlipidemia, COPD, tobacco abuse who came as a transfer from [facility] complaining of intermittent mid sternal chest pain that started overnight. Patient had a nitro SL on the EMS in route. On arrival previous facility found heart rate within normal limits, pain is not radiated. Gradually onset, intermittent and became more persistent today, associated with some shortness of breath. Patient denied nausea vomiting, fever or chills. Admitted for further treatment. [facility] Disclaimer: The information contained in this section may have been updated after the patient was seen, as this information can be updated by other users. Medical History (Updated 05/26/23 @ 23:04 by Zee Irby RN) Coronary bypass graft mechanical complication HHD (hypertensive heart disease) Nightmares associated with chronic post-traumatic stress disorder Recurrent major depression resistant to treatment Surgical History (Updated 05/26/23 @ 23:04 by Zee Irby RN) History of appendectomy History of cholecystectomy History of hysterectomy Social History (Updated 05/26/23 @ 23:02 by Zee Irby RN) Smoking Status: Current every day smoker tobacco type: cigarettes packs per day: 1 second hand exposure: Yes alcohol intake: never substance use type: former substance user, sedatives and opiates current occupational status: disabled Travel in the last 8 weeks: None household members: none housing: house number of children: 2 current occupational exposures/hazards: No caffeine: Yes Review of Systems Review of Systems Review of systems:: pertinent systems reviewed and negative unless documented below Meds Home Medications and Allergies Home Medications Medication Instructions Recorded Confirmed Type aspirin 81 mg tablet,delayed 81 mg PO DAILY heart health 08/13/17 05/27/23 History release (Adult Low Dose Aspirin) nitroglycerin 0.4 mg sublingual 0.4 mg sublingual Q5MINP PRN chest 12/26/21 05/27/23 History tablet pain pantoprazole 40 mg tablet,delayed 40 mg PO HS acid reflux #90 tabs 01/30/23 05/27/23 Rx release prazosin 1 mg capsule 1 mg PO HS nightmares/sleep #30 02/10/23 05/27/23 Rx caps clonazepam 0.5 mg tablet 0.5 mg PO TID Anxiety #90 tabs 04/08/23 05/27/23 Rx gabapentin 400 mg capsule 400 mg PO QID Pain #120 caps 04/08/23 05/27/23 Rx amitriptyline 100 mg tablet 100 mg PO HS insomnia #90 tabs 04/20/23 05/27/23 Rx amlodipine 5 mg tablet 5 mg PO HS High Blood Pressure 05/27/23 05/27/23 History oxycodone-acetaminophen 7.5 mg-325 1 tab PO QID Pain 05/27/23 05/27/23 History mg tablet (Percocet) tizanidine 4 mg tablet 4 mg PO BIDP PRN Muscle Spasm 05/27/23 05/27/23 History New Prescriptions to Start Prescriptions: Allergies Allergy/AdvReac Type Severity Reaction Status Date / Time levofloxacin Allergy Severe Anaphylaxis Verified 04/08/23 16:08 bupropion [From Wellbutrin] Allergy Intermediate Rash Verified 04/08/23 16:08 venlafaxine Allergy Unknown Unknown Verified 04/08/23 16:08 allergy reaction Exam Constitutional Constitutional: mild distress and cooperative *Routine HEENT Exam Head: Present normocephalic and atraumatic Eye: Present EOMI, PERRL and normal accommodation ENT: Present mucous membranes moist *Routine Neck Exam Neck: Present supple, full ROM and trachea midline *Routine Respiratory Exam Respiratory: Present normal respiratory effort, able to speak in complete sentences and symmetric chest movement *Routine Cardiovascular Exam Cardiovascular: Present RRR, Normal S1 and Normal S2 *Routine Abdominal Exam Abdominal: Present soft and normoactive bowel sounds; Absent organomegaly *Routine Rectal Exam Rectal:: defe
--- NOTE | 2023-05-26 23:16 | PC.NURSE ---
Patient unable to provide full list of medications taking daily. Per External medication history confirmed medications that were filled from [facility]
[2023-05-26 23:35] LABS: INR 1.01 (0.9-1.1); Prothrombin Time 10.9 seconds (10.1-12.5)
[2023-05-27] VITALS (10 sets, daily range): BP systolic 128–163; BP diastolic 78–94; PULSE 66–100; RESP 16–18; TEMP 36.6–36.8; O2SAT 93–99; BMI 28.6
[2023-05-27 02:48] LABS: Troponin I < 0.01 ng/ml (0.00-0.034)
[2023-05-27 05:28] LABS: Basophils # 0.1 K/mm3 (0-0.2); Basophils % 0.8 % (0.1-2.0); Eosinophils # 0.2 K/mm3 (0.0-0.4); Eosinophils % 2.2 % (0.1-12.0); Hematocrit 40.3 % (37.0-47.0); Hemoglobin 13.6 g/dL (12.2-16.2); Lymphocytes # 2.8 K/mm3 (0.7-4.5); Lymphocytes % 39.3 % (10-50); Mean Corpuscular HGB Conc 33.8 g/dL (31.8-35.4); Mean Corpuscular Hemoglobin 30.6 pg (27.0-31.2); Mean Corpuscular Volume 90.4 fl (81-99); Mean Platelet Volume 8.1 fl (7.4-10.4); Monocytes # 0.6 K/mm3 (0.1-1.0); Neutrophils # 3.5 K/mm3 (1.8-7.8); Neutrophils % 49.6 % (37.0-80.0); Platelet Count 276 K/mm3 (142-424); Red Blood Count 4.45 M/mm3 (4.20-5.40); Red Cell Distribution Width 15.9 % (11.5-17.5); White Blood Count 7.1 K/mm3 (4.8-10.8)
[2023-05-27 05:37] LABS: Chloride 105 mmol/L (98-107); Sodium 136 mmol/L (136-145)
[2023-05-27 05:38] LABS: Potassium 3.7 mmoL/L (3.5-5.1)
[2023-05-27 05:40] LABS: Alanine Aminotransferase 18 U/L (12-78); Albumin Level 3.5 g/dl (3.5-5.0); Albumin/Globulin Ratio 1.2 (1.1-1.8); Alkaline Phosphatase 109 U/L (38-126); Anion Gap 7.7 mEq/L (5-15); Aspartate Amino Transferase 27 U/L (14-36); Bilirubin,Total 0.3 mg/dl (0.2-1.3); Blood Urea Nitrogen 4 mg/dl (7-17); Calcium 8.3 mg/dl (8.4-10.2); Carbon Dioxide 27 mmol/L (22.0-30.0); Cholesterol 178 mg/dl (140-200); Creatinine Clearance Estimated 68 mL/min (50-200); Estimated Glomerular Filt Rate 101 ml/min (>60); GFR (African American) 123 ML/MIN (>60); Globulin 2.9 g/dL (1.3-3.2); Glucose 98 mg/dl (74-100); Total Protein,Serum 6.4 g/dl (6.3-8.2); Triglycerides 166 mg/dl (30-150); VLDL Cholesterol 33 mg/dL (0-40)
[2023-05-27 05:41] LABS: Chol/HDL Ratio 3.3 (1-3.5); HDL Cholesterol 54 mg/dl (40-60); Magnesium 1.8 mg/dl (1.6-2.3)
[2023-05-27 05:49] LABS: Troponin I < 0.01 ng/ml (0.00-0.034)
[2023-05-27 05:51] LABS: Direct LDL Cholesterol 83.05 mg/dL (100-129)
--- NOTE | 2023-05-27 06:30 | PC.NURSE ---
Patient alert and oriented this shift. Up adlib to restroom. Complaints of pain treated per OCT. Vitals WNL. Call gambino and personal items in reach. POC ongoing.
--- NOTE | 2023-05-27 06:43 | ECG_ITS ---
APPROVED REPORT Exam: Resting ECG HR:77 bpm ECG Measurements Heart Rate 77 AXES ME 137 P 60 QRSd 102 QRS -1 QT 413 T 80 QTc 445 Conclusion SINUS RHYTHM POSSIBLE LEFT ATRIAL ENLARGEMENT [-0.1mV P-WAVE IN V1/V2] NONSPECIFIC ST & T-WAVE ABNORMALITY BORDERLINE ECG UNCONFIRMED REPORT Electronically signed by : Rafi Levine MD 05/28/2023 21:29:24
--- NOTE | 2023-05-27 07:36 | HMH.PHAINT1 ---
Pharmacy Intervention Comments: MEDICATION RECONCILIATION COMPLETED ON PATIENT USING EXTERNAL FILL HISTORY FROM PHARMACY. -MERCEDES SALVADOR, [facility]
--- NOTE | 2023-05-27 09:12 | CA_ITS ---
APPROVED REPORT EXAM: Comprehensive 2D, Doppler, and color-flow Echocardiogram Insurance Business Analyst: Jessica Marie CRT Ht: 5 ft 3 in Wt: 161lbs BSA: 1.76 BP: 135/76 mmHg Indications: Chest Pain, COPD, Hyperlipidemia, Hypertension/HDD, S/P CABG, stent, former substance abuser,smoker 2D Dimensions LVOT 1.96 cm (M/F) 1.5-2.5 LA Volume 34.50 mL LA Volume Index 19.10 mL/m2 (M/F) 16-34 M-Mode Dimensions RVDd 1.90 cm (0.9-2.6) LA Diam 3.61 cm (1.9-4.0) LVDd 4.32 cm (3.5-5.7) Ao Diam 3.85 cm (2.0-3.7) LVDs 3.27 cm (3.5-5.7) IVSd 1.41 cm (0.6-1.1) PWd 0.97 cm (0.6-1.1) EF (Teich) 48.60% FS 24.30% EDV (Teich) 84.00 mL TAPSE 1.18 (<1.7) ESV (Teich) 43.20 mL LV Diastology E Decel Time 127.00 (160-240 msec) E/A Ratio 0.98 MED E' 3.90 (< 7 cm/sec) MED A' 7.70 cm/s E'/MED E' Ratio 17.49 (>14) LAT E' 8.60 (<10 cm/sec) LAT A' 5.40 cm/s E/LAT E' Ratio 7.93 (>14) Aortic Valve AO Peak GR. 4.90 mmHg Mitral Valve MV A Velocity 70.00 (40-130 cm/s) E/A Ratio 0.98 MV Decel. Time 127.00 (160-240 ms) Pulmonary Valve PV Peak Velocity 120.00 (50-150 cm/s) Tricuspid Valve TR P. Velocity 210.00 cm/s RAP Estimate 10.00 mmHg RVSP 27.70 mmHg Left Ventricle The left ventricle is normal size. Left ventricular systolic function is mildly decreased. There is normal left ventricular wall thickness. There is moderate hypokinesis of the inferior, inferoseptal, and inferolateral LV frye. Grade 1 diastolic dysfunction is present. LVEF is 40-45%. Right Ventricle The right ventricle is normal size. The right ventricular systolic function is normal. Atria The left atrium size is normal. The right atrium size is normal. Aortic Valve The aortic valve leaflets are mildly thickened. There is no aortic valvular stenosis. No aortic regurgitation is present. Mitral Valve The mitral valve leaflets are mildly thickened. No evidence of mitral valve stenosis. Mild mitral regurgitation. Tricuspid Valve The tricuspid valve leaflets are thin and pliable. Trace tricuspid regurgitation. RVSP is 17 mmHg + RA pressure. Pulmonic Valve The pulmonary valve is normal in structure. Trace pulmonic regurgitation. Great Vessels The aortic root is normal in size. The ascending aorta is normal in size. The IVC is not well visualized. Pericardium There is no pericardial effusion. Other Information Study Quality: Fair Conclusion Mild reduction in LV systolic function. LVEF is 40-45%. Moderate hypokinesis of the inferio, inferoseptal, and inferolateral LV frye. Mild MR. Compared to prior study from 2017, the reduction in LVEF is negative. Compared to prior study from 2017 (and compared to LVgram in 2020), the reduction in LVEF is now new. Further evaluation of cardiomyopathy and assessment of tissue viability in the setting of known severe triple-vessel disease is recommended with cardiac MRI (cardiomyopathy protocol). Electronically signed by : Melissa Dominguez MD 05/27/2023 22:08:04
--- NOTE | 2023-05-27 12:24 | EXP.CARD.CON ---
History of Present Illness History of Present Illness Consult date: 05/27/23 Requesting physician: Adin Cornejo Consult reason: chest pain Chief complaint: chest pain History of present illness: 63 years old white female with past medical history of hypertension, CAD status post bypass, hyperlipidemia, COPD, tobacco abuse who came as a transfer from [facility] complaining of intermittent mid sternal chest pain that started overnight. Reports pain was a gradual onset, intermittent that became more persistent throughout the day, associated with some shortness of breath. Patient denied nausea vomiting, fever or chills. Initial EKG upon presentation to [facility] showed sinus rhythm with a rate of [address] changes concerning for acute ischemia. Labs were essentially unremarkable with serial negative troponins. Patient was admitted for unstable angina and cardiology was consulted for further evaluation. [facility] Disclaimer: The information contained in this section may have been updated after the patient was seen, as this information can be updated by other users. Medical History (Updated 05/26/23 @ 23:04 by Zee Irby RN) Coronary bypass graft mechanical complication HHD (hypertensive heart disease) Nightmares associated with chronic post-traumatic stress disorder Recurrent major depression resistant to treatment Surgical History (Updated 05/26/23 @ 23:04 by Zee Irby RN) History of appendectomy History of cholecystectomy History of hysterectomy Social History (Updated 05/26/23 @ 23:02 by Zee Irby RN) Smoking Status: Current every day smoker tobacco type: cigarettes packs per day: 1 second hand exposure: Yes alcohol intake: never substance use type: former substance user, sedatives and opiates current occupational status: disabled Travel in the last 8 weeks: None household members: none housing: house number of children: 2 current occupational exposures/hazards: No caffeine: Yes Review of Systems Review of Systems Review of systems:: pertinent systems reviewed and negative unless documented below *Cardiovascular Cardiovascular: Reports chest pain and Reports dyspnea *Respiratory Respiratory: Reports dyspnea Exam Data for Last 24 hours Vital signs and Labs for Last 24 Hours: Temp Pulse Resp BP Pulse Ox O2 Del Method 98.2 F 83 17 130/85 94 L Room Air 05/27/23 11:28 05/27/23 11:28 05/27/23 11:28 05/27/23 11:28 05/27/23 11:28 05/27/23 11:28 Laboratory Results - last 24 hr 10/24/23 23:11: PT 10.9, INR 1.01 05/27/23 02:10: Troponin I < 0.01 05/27/23 05:15: WBC 7.1, RBC 4.45, Hgb 13.6, Hct 40.3, MCV 90.4, MCH 30.6, MCHC 33.8, RDW 15.9, Plt Count 276, MPV 8.1, Neut % (Auto) 49.6, Lymph % (Auto) 39.3, [place] % (Auto) 8.0, Eos % (Auto) 2.2, Baso % (Auto) 0.8, Neut # (Auto) 3.5, Lymph # (Auto) 2.8, [place] # (Auto) 0.6, Eos # (Auto) 0.2, Baso # (Auto) 0.1, Sodium 136, Potassium 3.7, Chloride 105, Carbon Dioxide 27, Anion Gap 7.7, BUN 4 L, Creatinine 0.60, Estimated Creat Clear 68, Estimated GFR 101, Est GFR ( Amer) 123, Glucose 98, Calcium 8.3 L, Magnesium 1.8, Total Bilirubin 0.3, AST 27, ALT 18, Alkaline Phosphatase 109, Troponin I < 0.01, Total Protein 6.4, Albumin 3.5, Globulin 2.9, Albumin/Globulin Ratio 1.2, Triglycerides 166 H, Cholesterol 178, LDL Cholesterol Direct 83.05 L, VLDL Cholesterol 33, HDL Cholesterol 54, Cholesterol/HDL Ratio 3.3 I & O for Last 24 hours: Intake & Output 05/24/23 05/25/23 05/26/23 05/27/23 23:59 23:59 23:59 23:59 Intake Total 0 / 0 Output Total 101 / 101 Balance -101 / -101 Weight 161 lb 12.8 oz 161 lb 12.791 oz Constitutional Constitutional: no acute distress *Routine Respiratory Exam Respiratory: Present CTA bilaterally and symmetric chest movement *Routine Cardiovascular Exam Cardiovascular: Present RRR, Normal S1 and Normal S2 *Routine Abdominal Exam Abdominal: Present soft and
--- NOTE | 2023-05-27 16:38 | PC.NURSE ---
pt alert and oriented. pt ls diminished. pt abdomen soft, nontender, bs active. pt up ad gloria in room. pt educated on npo status at [facility] for heart cath tomorrow. pt medicated per mar for pain.
--- NOTE | 2023-05-27 16:59 | PC.NURSE ---
Home Medications Sabina Hood Medication Instructions Recorded Confirmed aspirin 81 mg tablet,delayed 81 mg PO DAILY heart health 08/13/17 05/27/23 release (Adult Low Dose Aspirin) nitroglycerin 0.4 mg sublingual 0.4 mg sublingual Q5MINP PRN chest 12/26/21 05/27/23 tablet pain amlodipine 5 mg tablet 5 mg PO HS High Blood Pressure 05/27/23 05/27/23 oxycodone-acetaminophen 7.5 mg-325 1 tab PO QID Pain 05/27/23 05/27/23 mg tablet (Percocet) tizanidine 4 mg tablet 4 mg PO BIDP PRN Muscle Spasm 05/27/23 05/27/23 Previous Rx's Medication Instructions Recorded pantoprazole 40 mg tablet,delayed 40 mg PO HS acid reflux #90 tabs 01/30/23 release prazosin 1 mg capsule 1 mg PO HS nightmares/sleep #30 02/10/23 caps clonazepam 0.5 mg tablet 0.5 mg PO TID Anxiety #90 tabs 04/08/23 gabapentin 400 mg capsule 400 mg PO QID Pain #120 caps 04/08/23 amitriptyline 100 mg tablet 100 mg PO HS insomnia #90 tabs 04/20/23
--- NOTE | 2023-05-27 19:40 | EXP.ACUTE.PN ---
Subjective *Date: 05/27/23 *Time: 19:40 Interval history: Patient still having some mild discomfort. No increased oxygen requirement or nausea or vomiting. Hemodynamically stable. Medical Exam Vital signs and Labs for Last 24 Hours: Vital Signs Temp Pulse Pulse Resp BP Pulse Ox O2 Del Method 05/27/23 18:23 Room Air 05/27/23 16:00 100 H 05/27/23 17:00 Room Air 05/27/23 15:23 98.1 F 91 H 18 149/87 H 94 L Room Air 05/27/23 14:39 Room Air 05/27/23 12:00 85 05/27/23 12:54 Room Air 05/27/23 11:28 98.2 F 83 17 130/85 94 L Room Air 05/27/23 10:58 Room Air 05/27/23 09:00 Room Air 05/27/23 09:01 77 05/27/23 08:00 97.8 F 77 17 128/78 93 L Room Air 05/27/23 07:56 Room Air 05/27/23 06:43 Room Air 05/27/23 00:00 85 05/27/23 04:00 80 05/27/23 04:56 Room Air 05/27/23 02:58 Room Air 05/27/23 00:00 98.1 F 66 16 160/88 H 99 Room Air 05/27/23 01:00 Room Air 05/26/23 22:48 98.1 F 83 16 163/97 H 96 Room Air 05/26/23 23:00 Room Air Intake and Output 05/27/23 05/27/23 05/27/23 07:59 15:59 23:59 Intake Total 0 / 270 270 / 270 Output Total 101 / 101 0 / 101 0 / 101 Balance -101 / 169 0 / 169 270 / 169 Intake: Intake, Oral Amount 0 / 270 270 / 270 Output: Output, Urine Amount 101 / 101 0 / 101 0 / 101 Other: Number of Unmeasured Voids 0 1 1 Weight 73.391 kg Patient Weight 05/27/23 23:59 Weight 73.391 kg Laboratory Results - last 24 hr 05/26/23 23:11: PT 10.9, INR 1.01 05/27/23 02:10: Troponin I < 0.01 05/27/23 05:15: WBC 7.1, RBC 4.45, Hgb 13.6, Hct 40.3, MCV 90.4, MCH 30.6, MCHC 33.8, RDW 15.9, Plt Count 276, MPV 8.1, Neut % (Auto) 49.6, Lymph % (Auto) 39.3, [place] % (Auto) 8.0, Eos % (Auto) 2.2, Baso % (Auto) 0.8, Neut # (Auto) 3.5, Lymph # (Auto) 2.8, [place] # (Auto) 0.6, Eos # (Auto) 0.2, Baso # (Auto) 0.1, Sodium 136, Potassium 3.7, Chloride 105, Carbon Dioxide 27, Anion Gap 7.7, BUN 4 L, Creatinine 0.60, Estimated Creat Clear 68, Estimated GFR 101, Est GFR ( Amer) 123, Glucose 98, Calcium 8.3 L, Magnesium 1.8, Total Bilirubin 0.3, AST 27, ALT 18, Alkaline Phosphatase 109, Troponin I < 0.01, Total Protein 6.4, Albumin 3.5, Globulin 2.9, Albumin/Globulin Ratio 1.2, Triglycerides 166 H, Cholesterol 178, LDL Cholesterol Direct 83.05 L, VLDL Cholesterol 33, HDL Cholesterol 54, Cholesterol/HDL Ratio 3.3 I & O for Labs for Last 24 Hours: Intake & Output 05/24/23 05/25/23 05/26/23 05/27/23 23:59 23:59 23:59 23:59 Intake Total 270 / 270 Output Total 101 / 101 Balance 169 / 169 Weight 73.391 kg 73.391 kg Constitutional: Present no acute distress, average body habitus and chronically ill appearing Head: Present atraumatic and normocephalic ENT: Present normal exam Respiratory: Present normal respiratory effort; Absent rhonchi, wheezes or crackles Cardiac: Present Reg Rate and Rhythm GI: Present normal bowel sounds; Absent tenderness Extremities: Present normal inspection and full ROM Skin: Present intact; Absent erythema Neuro: Present Grossly Intact, alert, awake, oriented x 3 and moves all extremities Assessment and Plan *Assessment and plan (1) Chest pain: Status: Resolved Qualifiers: Chest pain type: other chest pain Qualified Code(s): R07.89 - Other chest pain; R07.8 - Other chest pain Category: Medical Code(s): R07.9 - Chest pain, unspecified (2) CAD (coronary artery disease) of artery bypass graft: Status: Chronic Qualifiers: Associated angina: with other forms of angina [place] vs. transplanted heart: [place] heart Qualified Code(s): I25.708 - Atherosclerosis of coronary artery bypass graft(s), unspecified, with other forms of angina pectoris Category: Medical Code(s): I25.810 - Atherosclerosis of coronary artery bypass graft(s) without angina pectoris (3) Hyperte
[2023-05-28] VITALS (17 sets, daily range): BP systolic 132–177; BP diastolic 70–95; PULSE 11–97; RESP 16–18; TEMP 36.7–37.1; O2SAT 95–99; BMI 28.5
--- NOTE | 2023-05-28 | IR_ITS ---
APPROVED REPORT Patient Location: [facility] Coordinator: RAHUL Briones RT (R) PROCEDURES Left heart catheterization Left ventriculogram Selective coronary angiogram Selective engagement of the left internal mammary artery which makes an anastomosis onto the ramus intermedius first diagonal artery and LAD Selective engagement of the saphenous vein graft to the circumflex artery Selective engagement of the saphenous vein graft to the right coronary INDICATION Coronary artery disease, History of coronary artery bypass surgery, Progressive angina pectoris, Informed consent was obtained prior to the procedure. COMPLICATIONS None Estimated Blood Loss: Less than 10 ml TECHNIQUE One percent lidocaine used to anesthetize the right groin. The right femoral artery was accessed via the Seldinger technique and a 5 [place] sheath was placed in the right femoral artery. A JL 4, JR4 catheter were used to perform left heart catheterization, left ventriculogram selective coronary angiography as well as selective engagement of the 2 vein grafts and the left internal mammary artery. At the end of the procedure the patient was transferred to the postop holding area in stable condition for sheath removal. ANGIOGRAPHIC RESULTS The left main artery Severely diffusely diseased but patent The left anterior descending artery Ostially occluded The circumflex artery Ostially occluded The right coronary artery Ostially occluded The ORTEGA ventriculogram reveals Preserved at 55% The left ventricular end-diastolic pressure 10 mmHg ELDER graft is widely patent makes anastomosis onto ramus intermedius and then skips onto a first diagonal artery and then skips onto the LAD. The ELDER graft is widely patent at all 3 anastomotic sites Saphenous vein graft to circumflex artery ostially occluded Saphenous vein graft to right coronary artery has diffuse 40% stenoses throughout its entire proximal and mid course. It anastomoses onto a large posterior descending artery which then retrograde fills a large posterior lateral branch IMPRESSION Occluded saphenous vein graft to circumflex artery as described above Otherwise patent coronary arteries as described above with 100% graft dependency Preserved ejection fraction Normal left ventricular end-diastolic pressure PLAN 1. Avoidance of tobacco products 2. Maximize medical management Electronically signed by : Juanito Padilla MD 05/28/2023 14:28:32
--- NOTE | 2023-05-28 05:10 | PC.NURSE ---
Pt is alert and oriented x4, currently on RA, and telemetry with a a NSR. Pt has refused her VTE (lovenox) this shift. Pt has complained of pain which has been relieved with pain mediations but denies chest pain throughout this shift. Pt is due for a heart cath later this am and is prep and ready. Pt has rested well for the most part of the shift and has no complaints at this time.
[2023-05-28 06:29] LABS: Basophils % 0.5 % (0.1-2.0); Eosinophils # 0.1 K/mm3 (0.0-0.4); Eosinophils % 1.5 % (0.1-12.0); Hemoglobin 15.2 g/dL (12.2-16.2); Lymphocytes # 2.3 K/mm3 (0.7-4.5); Lymphocytes % 33.1 % (10-50); Mean Corpuscular HGB Conc 33.8 g/dL (31.8-35.4); Mean Corpuscular Hemoglobin 30.5 pg (27.0-31.2); Mean Corpuscular Volume 90.1 fl (81-99); Mean Platelet Volume 8.4 fl (7.4-10.4); Monocytes # 0.4 K/mm3 (0.1-1.0); Monocytes % 6.2 % (1.7-9.3); Neutrophils # 4.1 K/mm3 (1.8-7.8); Neutrophils % 58.7 % (37.0-80.0); Platelet Count 270 K/mm3 (142-424); Red Blood Count 4.99 M/mm3 (4.20-5.40); Red Cell Distribution Width 15.6 % (11.5-17.5)
[2023-05-28 07:01] LABS: Chloride 105 mmol/L (98-107); Sodium 137 mmol/L (136-145)
[2023-05-28 07:04] LABS: Alanine Aminotransferase 22 U/L (12-78); Albumin Level 4.1 g/dl (3.5-5.0); Albumin/Globulin Ratio 1.2 (1.1-1.8); Alkaline Phosphatase 142 U/L (38-126); Aspartate Amino Transferase 40 U/L (14-36); Bilirubin,Total 0.4 mg/dl (0.2-1.3); Blood Urea Nitrogen 7 mg/dl (7-17); Carbon Dioxide 27 mmol/L (22.0-30.0); Creatinine Clearance Estimated 67 mL/min (50-200); Estimated Glomerular Filt Rate 85 ml/min (>60); GFR (African American) 103 ML/MIN (>60); Globulin 3.5 g/dL (1.3-3.2); Glucose 98 mg/dl (74-100); Total Protein,Serum 7.6 g/dl (6.3-8.2)
--- NOTE | 2023-05-28 09:33 | EXP.CARD.PN ---
Subjective Subjective Date: 05/28/23 Time: 08:00 Principal diagnosis: Unstable angina Interval history: Patient reports she is feeling anxious awaiting left heart catheterization this morning. Denies chest pain or shortness of breath. Morning labs reviewed. Vitals remained stable Exam Data for Last 24 hours Vital signs and Labs for Last 24 Hours: Temp Pulse Resp BP Pulse Ox O2 Del Method 98.2 F 97 H 16 135/79 98 Room Air 05/28/23 07:39 05/28/23 07:39 05/28/23 07:39 05/28/23 07:39 05/28/23 08:00 05/28/23 08:01 Laboratory Results - last 24 hr 05/28/23 05:57: WBC 7.0, RBC 4.99, Hgb 15.2, Hct 45.0, MCV 90.1, MCH 30.5, MCHC 33.8, RDW 15.6, Plt Count 270, MPV 8.4, Neut % (Auto) 58.7, Lymph % (Auto) 33.1, [place] % (Auto) 6.2, Eos % (Auto) 1.5, Baso % (Auto) 0.5, Neut # (Auto) 4.1, Lymph # (Auto) 2.3, [place] # (Auto) 0.4, Eos # (Auto) 0.1, Baso # (Auto) 0.0, Sodium 137, Potassium 4.0, Chloride 105, Carbon Dioxide 27, Anion Gap 9.0, BUN 7 D, Creatinine 0.70, Estimated Creat Clear 67, Estimated GFR 85, Est GFR ( Amer) 103, Glucose 98, Calcium 9.0, Magnesium 2.0 D, Total Bilirubin 0.4, AST 40 H D, ALT 22, Alkaline Phosphatase 142 H, Total Protein 7.6, Albumin 4.1 D, Globulin 3.5 H, Albumin/Globulin Ratio 1.2 I & O for Last 24 hours: Intake & Output 05/25/23 05/26/23 05/27/23 05/28/23 23:59 23:59 23:59 23:59 Intake Total 270 / 270 0 / 0 Output Total 401 / 401 200 / 200 Balance -131 / -131 -200 / -200 Weight 161 lb 12.8 oz 161 lb 12.791 oz 161 lb 7 oz Constitutional Constitutional: no acute distress *Routine Respiratory Exam Respiratory: Present CTA bilaterally and symmetric chest movement *Routine Cardiovascular Exam Cardiovascular: Present RRR, Normal S1 and Normal S2 *Routine Abdominal Exam Abdominal: Present soft and normoactive bowel sounds; Absent tenderness *Routine Extremities Exam Extremities: Present full ROM and normal capillary refill; Absent edema *Routine Skin Exam Skin: Present intact, dry and warm Detailed Neck Exam: Thyroids Thyroid: Absent bruit Progress Note: A&P Assessment and plan (1) Chest pain: Status: Resolved (2) CAD (coronary artery disease) of artery bypass graft: Status: Chronic (3) Hypertension: Status: Chronic (4) HLD (hyperlipidemia): Status: Chronic (5) COPD (chronic obstructive pulmonary disease): Status: Acute (6) Anxiety: Status: Acute (7) Tobacco use: Status: Chronic Assessment and Plan Assessment and Plan for All Diagnoses:: History of coronary artery disease Prior CABG and stenting Unstable angina-CCS 3 -Serial troponins negative -EKG negative for acute ischemic changes -Given persistent worsening chest pain and history of CABG we will proceed with left heart catheterization. Discussed risk versus benefits with patient she is agreeable. -Continue Enoxaparin 75mg BID. start atorvastatin 40mg daily. 1452 update: Is post left heart catheterization today. Occluded saphenous vein graft to circumflex noted. Otherwise patent coronary arteries with 100% graft dependency HFrEF NYHA I-II -Echo 05/28/2023: EF 40-45% which is new from echo in 2017. Moderate hypokinesis of the inferior, inferoseptal, and inferolateral LV frye. Mild MR. -Further evaluation of cardiomyopathy and assessment of tissue viability in the setting of known severe triple-vessel disease is recommended with cardiac MRI (cardiomyopathy protocol). -Start Entresto 24/26mg PO BID, coreg 3.125mg po BID, Jardiance 10mg po QD, and aldactone 25mg po daily HLD -LDL goal < 55. LDL goal is 83. start statin HTN -Well controlled. continue norvasc 5mg po daily. Start Entresto and Coreg CV summary: Patient is status post left heart cath today. Occluded saphenous vein graft to circumflex artery noted. Otherwise patent coronary arteries. Please have patient continue below listed medications and follow-up in cardiology clinic in 1 week for reevaluati
--- NOTE | 2023-05-28 18:23 | EXP.DC.SUM ---
General Admission date:: 05/26/23 Discharge date: 05/28/23 HPI HPI HPI: This is a 63 years old female with past medical history of hypertension, CAD status post bypass, hyperlipidemia, COPD, tobacco abuse who came as a transfer from [facility] complaining of intermittent mid sternal chest pain that started overnight. Patient had a nitro SL on the EMS in route. On arrival previous facility found heart rate within normal limits, pain is not radiated. Gradually onset, intermittent and became more persistent today, associated with some shortness of breath. Patient denied nausea vomiting, fever or chills. Admitted for further treatment. Hospital Course Hospital Course Hospital Course: 63 years old female with past medical history of hypertension, CAD status post bypass, hyperlipidemia, COPD, tobacco abuse who came as a transfer from [facility] complaining of intermittent mid sternal chest pain that started overnight. During initial assessment work-up is unremarkable, patient being pain-free after a round of nitro and ASA. Troponins are negative. EKG reviewed. There is normal axis. No ST changes. Sinus rhythm with occasional PVCs. Patient has a long cardiac history, including CABG x6, most recent CATH 2 years ago. Coronary risk assessment high. Cardiology was consulted. Taken for left heart cath. No new occlusions. Cardiology recommends adjustments to medical management. Stable for discharge home. Close follow-up with cardiology as an outpatient. Problems addressed as follows: Unstable angina History of CABG and stenting CAD HFrEF -Cardiology consulted, appreciate their recommendations. Patient was initiated on aspirin, Plavix, Lovenox while awaiting heart cath. Echocardiogram was obtained showing mild reduction in LV systolic function. EF 40 to 45%. Mild hypokinesis of the inferior oh, inferoseptal, and inferolateral LV frye. Mild mitral regurgitation. Taken for heart cath on 05/28. Findings below. No lesions necessitating intervention. At this time, recommend aggressive medical management. Continue treatment with aspirin 81 mg daily, amlodipine 5 mg daily, Lipitor 40 mg daily, Entresto 24/26 mg twice daily, carvedilol 3.125 mg daily, Jardiance 10 mg daily, and Aldactone 25 mg daily. Close follow-up with cardiology in the next week for further management and evaluation of blood pressure. ANGIOGRAPHIC RESULTS The left main artery Severely diffusely diseased but patent The left anterior descending artery Ostially occluded The circumflex artery Ostially occluded The right coronary artery Ostially occluded The ORTEGA ventriculogram reveals Preserved at 55% The left ventricular end-diastolic pressure 10 mmHg ELDER graft is widely patent makes anastomosis onto ramus intermedius and then skips onto a first diagonal artery and then skips onto the LAD. The ELDER graft is widely patent at all 3 anastomotic sites Saphenous vein graft to circumflex artery ostially occluded Saphenous vein graft to right coronary artery has diffuse 40% stenoses throughout its entire proximal and mid course. It anastomoses onto a large posterior descending artery which then retrograde fills a large posterior lateral branch IMPRESSION Occluded saphenous vein graft to circumflex artery as described above otherwise patent coronary arteries as described above with 100% graft dependency Preserved ejection fraction Normal left ventricular end-diastolic pressure -Hypertension -Hyperlipidemia Condition seems to be stable. Continue Lipitor 40 mg daily, amlodipine 5 mg daily, Entresto and carvedilol as above. -Anxiety: On clonazepam 0.5 mg 3 times daily per home regimen. No adjustments during admission. Continue amitriptyline 100 mg nightly. -Tobacco abuse: Event risk factor for progression of cardiovascular disease. Counseled on benefits of cessation. Encouraged usage of patches. Patient has them at home.
--- NOTE | 2023-05-29 14:25 | CARE MANAGER ---
Contacted patient related to hospital discharge. She has not picked up her medication yet but is going to do it today. She had questions regarding the medications prescribed and we reviewed them. She states she is concerned her blood pressure is going too low. She is taking her blood pressure and I recommended she monitor it and write it down. Contact cardiology if it appears low or she feels bad. She verbalized understanding. KENNY Desai
== END 2023-05-28 18:31 | disposition home or self-care (01) ==
PROVIDERS: Internal Medicine; Nurse Practitioner Family; Admitting Provider Internal Medicine Adolescent Medicine; PCP Emergency Medicine; Visit Provider Internal Medicine Adolescent Medicine
DX: R07.9 Chest pain, unspecified (principal); I10 Essential (primary) hypertension; I25.708 Atherosclerosis of coronary artery bypass graft(s), unspecified, with other forms of angina pectoris; E78.2 Mixed hyperlipidemia; Z95.1 Presence of aortocoronary bypass graft; I25.110 Atherosclerotic heart disease of native coronary artery with unstable angina pectoris; J44.9 Chronic obstructive pulmonary disease, unspecified; F41.9 Anxiety disorder, unspecified; F17.210 Nicotine dependence, cigarettes, uncomplicated
CPT/HCPCS: 36415; 71046; 80053; 80061; 83735; 84484; 85025; 85610; 93005; 93306; 93459; 99152; C1725; C1769; C1894; G0378; J1644; Q9967

== ENCOUNTER → 2023-06-05 15:00 | Outpatient (CLI) | payer MEDICARE, MEDICAID, SELFPAY ==
[2023-06-05 18:39] LABS: Amphetamine/Metha Screen,Urine Negative ng/ml (<1000); Benzodiazepines Screen,Urine Negative ng/ml (<200)
[2023-06-05 18:40] LABS: Barbiturates Screen,Urine Negative ng/ml (<200)
[2023-06-05 18:41] LABS: Cannabinoid Screen,Urine Negative ng/ml (<50); Cocaine Screen,Urine Negative ng/ml (<300)
[2023-06-05 18:42] LABS: Methadone Screen,Urine Negative ng/ml (<300); Opiate Screen,Urine Positive ng/ml (<300)
[2023-06-05 18:43] LABS: Phencyclidine Screen,Urine Negative ng/ml (<25)
== END ==
PROVIDERS: PCP Emergency Medicine; Visit Provider Emergency Medicine
DX: F19.20 Other psychoactive substance dependence, uncomplicated (principal)
CPT/HCPCS: 80305

== ENCOUNTER → 2023-07-30 23:53 | Outpatient (CLI) | payer MEDICARE, MEDICAID, SELFPAY ==
[2023-07-30 18:47] LABS: Benzodiazepines Screen,Urine Negative ng/ml (<200)
[2023-07-30 18:48] LABS: Amphetamine/Metha Screen,Urine Negative ng/ml (<1000)
[2023-07-30 18:51] LABS: Cannabinoid Screen,Urine Negative ng/ml (<50)
[2023-07-30 18:52] LABS: Cocaine Screen,Urine Negative ng/ml (<300)
[2023-07-30 18:53] LABS: Methadone Screen,Urine Negative ng/ml (<300); Opiate Screen,Urine Positive ng/ml (<300)
[2023-07-30 18:57] LABS: Phencyclidine Screen,Urine Negative ng/ml (<25)
[2023-07-30 19:01] LABS: Barbiturates Screen,Urine Negative ng/ml (<200)
== END ==
LOC: LAB.DROPOF 23:54
PROVIDERS: PCP Internal Medicine; Visit Provider Internal Medicine
DX: Z79.899 Other long term (current) drug therapy (principal)
CPT/HCPCS: 80307

== ENCOUNTER 2023-08-25 20:31 | Outpatient (CLI) | payer MEDICARE, MEDICAID, SELFPAY ==
[2023-08-25 19:33] LABS: Amphetamine/Metha Screen,Urine Negative ng/ml (<1000); Barbiturates Screen,Urine Negative ng/ml (<200)
[2023-08-25 19:34] LABS: Benzodiazepines Screen,Urine Negative ng/ml (<200)
[2023-08-25 19:35] LABS: Cannabinoid Screen,Urine Negative ng/ml (<50); Cocaine Screen,Urine Negative ng/ml (<300)
[2023-08-25 19:40] LABS: Opiate Screen,Urine Positive ng/ml (<300); Phencyclidine Screen,Urine Negative ng/ml (<25)
[2023-08-25 20:50] LABS: Methadone Screen,Urine Negative ng/ml (<300)
== END 2023-08-25 23:59 ==
LOC: LAB.DROPOF 20:32
PROVIDERS: PCP Internal Medicine; Visit Provider Internal Medicine
DX: Z79.899 Other long term (current) drug therapy (principal)
CPT/HCPCS: 80307